=== PATIENT | male | born 1950 | race Caucasian/White ===

== ENCOUNTER 2018-10-01 11:21 | Emergency (ER) | payer MEDICARE, SELFPAY ==
[2018-10-01 11:34] VITALS: BP 154/85; PULSE 64; RESP 16; TEMP 36.7; O2SAT 97
[2018-10-01 12:18] VITALS: RESP 16
--- NOTE | 2018-10-01 12:27 | ED.GENADUL_ITS ---
Discharge Plan Disposition Patient Disposition: HOME Discharge Details Chief Complaint: Vascular Clinical Impression: Laceration of left leg, Bleeding from varicose vein Primary Care Provider: Edward Fernandes ED Provider: Isaias Jones Home Meds and New Rx's Prescriptions: No Action insulin detemir U-100 [Levemir U-100 Insulin] 100 UNIT/1 ML solution SQ BID RF: 0 sulfamethoxazole-trimethoprim [Bactrim DS] 1 EACH tablet 1 ea PO BID Qty: 14 RF: 0 albuterol sulfate [Proventil HFA] 6.7 GM HFA aerosol inhaler 2 puff Inhalation .Q6HRS RF: 0 albuterol sulfate 2.5 MG/3 ML solution for nebulization 3 ml Inhalation QID PRN PRN (Reason: Dyspnea) Qty: 30 RF: 0 Discharge Instructions Instructions: Care For Your Stitches (ED), Skin Adhesive Care (ED) Additional Instructions: Protect your lower legs. Return to ER or see your doctor for suture removal in 14 days. Return to the ER sooner for any worsening or new concerning symptoms. Referrals: Edward Fernandes [Primary Care Provider] - Medical Decision Making 67-year-old male here with venous bleed from shallow ulcer in area of varicose veins left lin. Attempted to control bleeding with of 4 mL local injection of lidocaine with epinephrine. This was unsuccessful. Figure 8 suture was placed with 4-0 nylon. Hemostasis was achieved. Topical skin adhesive was applied over the area. Usual and customary discharge instructions were provided. HPI General Mode of arrival: ambulatory . Date/Time Provider Initiated Documentation: 10/01/18 11:59 . Limitations to Documentation: no limitations . Information obtained by: patient and family . HPI Narrative: 67-year-old male here with bleeding from wound left lower extremity. Patient notes that he picked the scab off of his left lin last night and wound started bleeding. Bleeding was heavy at times and squirted across room. Bleeding was controlled with dressing. When he took the dressing down this morning bleeding was again noted. Bleeding was severe. No associated redness or signs of infection. Related Data Home Medications Medication Instructions Recorded Confirmed sulfamethoxazole-trimethoprim 1 ea PO BID #14 tablet 01/25/16 01/27/16 [Bactrim Ds Tablet] albuterol sulfate 3 ml INHALATION QID PRN PRN #30 06/13/16 vial albuterol sulfate [Proventil Hfa] 2 puff INHALATION .Q6HRS 01/27/16 01/27/16 insulin detemir U-100 [Levemir SQ BID 02/09/18 Vial] Previous Rx's Medication Instructions Recorded sulfamethoxazole-trimethoprim 1 ea PO BID #14 tablet 01/25/16 [Bactrim Ds Tablet] albuterol sulfate 3 ml INHALATION QID PRN PRN #30 01/27/16 vial Allergies Allergy/AdvReac Type Severity Reaction Status Date / Time No Known Allergies Allergy Unverified 02/09/18 10:25 General Stated Complaint: Vascular ANNAMARIA: 3 Review of Systems Integumentary/Breasts Reports as per HPI [facility] Medical History Insulin dependent diabetes mellitus (Chronic) Social History Smoking and Tabacco status: Former Tobacco Use Exam Skin Trauma: laceration (Left medial lin with 0.5 cm shallow ulceration with steady venous bleed) Extrem Other: Varicose veins noted distal left lower extremity Course Vital Signs Temperature 36.7 C 10/01/18 11:34 Pulse 64 10/01/18 11:34 Respiratory Rate 16 10/01/18 11:34 Blood Pressure 154/85 H 10/01/18 11:34 Pulse Oximetry 97 10/01/18 11:34 Temperature 36.7 C 10/01/18 11:34 Temperature Source Temporal Artery Scan 10/01/18 11:34 Pulse 64 10/01/18 11:34 Respiratory Rate 16 10/01/18 12:18 Respiratory Effort Non-Labored 10/01/18 12:18 Respiratory Depth Normal 10/01/18 12:18 Respiratory Pattern Normal 10/01/18 12:18 Blood Pressure 154/85 H 10/01/18 11:34 Blood Pressure Position Sitting 10/01/18 11:34 Pulse Oximetry 97 10/01/18 11:34 Oxygen Delivery Method Room Air 10/01/18 11:34 Oxygen Flow Rate 0 10/01/18 11:34 Pain Level 0 10/01/18 11:34 Procedures Laceration Laceration 1: Site: lower extremity Side (If applicable): left Size (cm): 0.5 Description: other (avulsion) Depth: simple, single layer Local Anesthetic: Lidocaine 1% and with Epi Size (cm): 4-0 Number of sutures: 1 Technique: other (figure 8)
[2018-10-01 16:01] VITALS: BP 154/85; PULSE 64; RESP 16; TEMP 36.7; O2SAT 97
== END 2018-10-01 12:44 | disposition home or self-care (01) ==
PROVIDERS: Emergency Provider Student in an Organized Health Care Education/Training Program; PCP Specialist/Technologist Athletic Trainer
DX: S81.812A Laceration without foreign body, left lower leg, initial encounter (principal); I83.028 Varicose veins of left lower extremity with ulcer other part of lower leg; W26.8XXA Contact with other sharp object(s), not elsewhere classified, initial encounter; E11.9 Type 2 diabetes mellitus without complications; Z79.4 Long term (current) use of insulin
CPT/HCPCS: 12001

== ENCOUNTER 2018-10-17 07:47 | Emergency (ER) | payer MEDICARE, SELFPAY ==
--- NOTE | 2018-10-17 08:06 | ED.GENADUL_ITS ---
Discharge Plan Disposition Patient Disposition: HOME Condition: Improving Discharge Details Clinical Impression: Visit for suture removal Primary Care Provider: Edward Fernandes ED Provider: Jose Vasquez Home Meds and New Rx's Prescriptions: Continued Levemir U-100 Insulin 100 UNIT/1 ML solution SQ BID RF: 0 Proventil HFA 6.7 GM HFA aerosol inhaler 2 puff Inhalation .Q6HRS RF: 0 albuterol sulfate 2.5 MG/3 ML solution for nebulization 3 ml Inhalation QID PRN PRN (Reason: Dyspnea) Qty: 30 RF: 0 Discharge Instructions Additional Instructions: Continue your regular medications. Soap and water cleanse, pat dry once daily and continue redressing for another 3-5 days time. Return for any concerns Medical Decision Making 68-year-old male presents for uneventful suture removal from left anterior tibia. I personally remove the suture. The wound was dressed. It is well- appearing he is stable for discharge HPI General Mode of arrival: ambulatory . Date/Time Provider Initiated Documentation: 10/17/18 07:59 . Limitations to Documentation: no limitations . Information obtained by: patient . History of Present Illness 68 year old M presents to the emergency department with the chief complaint of Presents for uneventful suture removal. No complaint, Related Data Home Medications Medication Instructions Recorded Confirmed Proventil HFA 2 puff INHALATION .Q6HRS 01/27/16 10/01/18 albuterol sulfate 3 ml INHALATION QID PRN PRN #30 01/27/16 10/01/18 vial Levemir U-100 Insulin SQ BID 02/09/18 Previous Rx's Medication Instructions Recorded albuterol sulfate 3 ml INHALATION QID PRN PRN #30 01/27/16 vial Allergies Allergy/AdvReac Type Severity Reaction Status Date / Time No Known Allergies Allergy Unverified 02/09/18 10:25 General ANNAMARIA: 3 PFSH Medical History Insulin dependent diabetes mellitus (Chronic) Social History Smoking and Tabacco status: Former Tobacco Use Exam Narrative Exam Narrative: GEN: awake, alert, oriented 3. Pleasant, well groomed, interactive. HEAD: Normocephalic, atraumatic EXT: Full ROM, left pretibial area with healing punctate wound. Suture in place, no surrounding erythema or Neuro: Grossly normal neurologic exam, conversant, interactive. Psych: Speech fluent, thoughts congruent, affect normal
[2018-10-17 08:10] VITALS: BP 147/72; PULSE 66; RESP 16; TEMP 36.8; O2SAT 95
== END 2018-10-17 08:11 | disposition home or self-care (01) ==
LOC: ER 08:12
PROVIDERS: Emergency Provider Emergency Medicine; PCP Specialist/Technologist Athletic Trainer
DX: S81.812D Laceration without foreign body, left lower leg, subsequent encounter (principal); X58.XXXD Exposure to other specified factors, subsequent encounter; Z48.02 Encounter for removal of sutures

== ENCOUNTER 2019-02-14 01:14 | Outpatient (CLI) | payer MEDICARE, SELFPAY ==
--- NOTE | 2019-02-14 13:42 | DI.US_ITS ---
SYMPTOMS/DIAGNOSIS: DIZZINESS, R42 CAROTID ULTRASOUND: No significant plaque is visible. The velocity measurements obtained are within the normal range. The vertebral arteries show antegrade flow. The left lobe of the thyroid is incidentally noted to be heterogeneous. IMPRESSION: No significant plaque or significant interval carotid artery stenosis. Heterogeneous left lobe of the thyroid. A thyroid ultrasound could be performed if clinically indicated.
== END 2019-02-14 01:34 ==
PROVIDERS: PCP Specialist/Technologist Athletic Trainer; Visit Provider Specialist/Technologist Athletic Trainer
DX: R42 Dizziness and giddiness (principal); E07.89 Other specified disorders of thyroid
CPT/HCPCS: 93880

== ENCOUNTER 2019-02-24 01:15 | Outpatient (CLI) | payer MEDICARE, SELFPAY ==
--- NOTE | 2019-02-24 13:21 | DI.US_ITS ---
SYMPTOMS/DIAGNOSIS: HETEROGENEOUS LEFT LOBE OF THYROID ON CAROTID US, F/U ABNORMAL FINDINGS, R93.89 THYROID ULTRASOUND: Routine examination was performed. Comparison ultrasound of the carotids is 02/14/19. The right lobe measures 4.8 x 2.1 x 2.6 cm, the left lobe measures 5 x 2.1 x 2.0 cm. The isthmus is enlarged measuring 0.9 cm. The thyroid gland is heterogeneous with multiple nodules seen bilaterally. The nodules range from completely cystic to completely solid. The largest nodule on the right is seen superiorly, is solid with peripheral vascularity. It measures 1.7 x 1 x 1.4 cm. The largest nodule on the left measures 2 x 1.7 x 1.4 cm. It is located in the superior pole. It is solid and shows some internal vascularity. There is a 2.1 x 1.4 x 1.9 cm solid vascular nodule in the isthmus. No echogenic shadowing foci are seen in the any of the nodules. None of the nodules show a definite malignant appearance sonographically. If further characterization is warranted, a thyroid uptake and scan may be considered. IMPRESSION: Multinodular thyroid gland. Please see the above discussion for complete details.
== END 2019-02-24 01:35 ==
PROVIDERS: PCP Specialist/Technologist Athletic Trainer; Visit Provider Specialist/Technologist Athletic Trainer
DX: E04.2 Nontoxic multinodular goiter (principal); R93.89 Abnormal findings on diagnostic imaging of other specified body structures
CPT/HCPCS: 76536

== ENCOUNTER 2019-02-24 16:18 | Outpatient (REF) | payer MEDICARE, SELFPAY ==
[2019-02-24 19:59] LABS: TSH (W/Ref FT4) 0.82 uIU/mL (0.358-3.74)
== END 2019-02-24 16:38 ==
LOC: NCHCN 16:18
PROVIDERS: PCP Specialist/Technologist Athletic Trainer; Visit Provider Specialist/Technologist Athletic Trainer
DX: R93.89 Abnormal findings on diagnostic imaging of other specified body structures (principal)
CPT/HCPCS: 84443

== ENCOUNTER 2020-01-23 15:22 | Outpatient (REF) | payer MEDICARE, SELFPAY ==
[2020-01-24 09:56] LABS: ALT 45 U/L (16-63); AST 27 U/L (15-37); Albumin 3.9 g/dL (3.4-5.0); Alkaline Phosphatase 78 U/L (46-116); Anion Gap 9.1 mmol/L (3-11); BUN 25 mg/dL (7-18); Bilirubin, Total 0.9 mg/dL (0.2-1.0); CO2 26.9 mmol/L (21.0-32.0); CREATININE 1.46 mg/dL (0.70-1.30); Calcium 9.6 mg/dL (8.5-10.1); Chloride 107 mmol/L (98-107); Glucose 136 mg/dL (74-106); NT-proBNP 57 pg/mL (<300); Potassium 4.8 mmol/L (3.5-5.1); Sodium 143 mmol/L (136-145); Total Protein 8.1 g/dL (6.4-8.2)
[2020-01-25 10:35] LABS: COVID-19 RT-PCR UVMMC Result Negative (Negative)
== END 2020-01-23 15:42 ==
LOC: NCHCN 15:22
PROVIDERS: PCP Specialist/Technologist Athletic Trainer; Visit Provider Nurse Practitioner Family
DX: R05 Cough (principal); R06.02 Shortness of breath
CPT/HCPCS: 80053; U0003; 83880

== ENCOUNTER 2020-01-23 16:39 | Outpatient (CLI) | payer MEDICARE, SELFPAY ==
--- NOTE | 2020-01-23 | DI.RAD_ITS ---
EXAM: XR CHEST 2V PA LATERAL CLINICAL HISTORY: COUGH, R05 TECHNIQUE: 2D digital imaging was performed. COMPARISON: CR CHEST 2 VIEWS PA,LAT from 01/27/2016 FINDINGS: MEDIASTINUM: Normal. HEART: Normal. PULMONARY VASCULATURE: Normal. LUNGS: There is an opacity/infiltrate in the right upper lobe. The infiltrate appears somewhat lucen t centrally. PLEURAL SPACE: No pleural effusion or pneumothorax. BONE:Normal. OTHER FINDINGS:Normal. IMPRESSION: Opacity in the right upper lobe with central lucency. This may represent an abscess or empyema assoc iated with pneumonia. Necrotic mass/neoplasm should also be considered. A CT scan of the chest with contrast is recommended for further evaluation. DATA REPOSITORY: RADIATION DOSE DELIVERED:
== END 2020-01-23 16:59 ==
PROVIDERS: PCP Specialist/Technologist Athletic Trainer; Visit Provider Nurse Practitioner Family
DX: R05 Cough (principal); J98.4 Other disorders of lung
CPT/HCPCS: 71046

== ENCOUNTER 2020-01-24 12:35 | Outpatient (CLI) | payer MEDICARE, SELFPAY ==
--- NOTE | 2020-01-24 14:20 | DI.CT_ITS ---
EXAM: CT CHEST WO CLINICAL HISTORY: COUGH, R05, F/U CXR 01/22. TECHNIQUE: Imaging protocol: Axial computed tomography images were obtained and coronal and sagittal reformatted images were created and reviewed. COMPARISON: CR XR CHEST 2V PA LATERAL from 01/23/2020 FINDINGS: Tracheobronchial tree: Patent where visualized. Mediastinum and Gabi: No dominant adenopathy or fluid collection. Pulmonary parenchyma: There is a 4.1 x 5.1 x 3.5 cm opacity in the right upper lobe. There are no ai r bronchograms seen centrally. Findings are most suspicious for primary pulmonary neoplasm. There a re surrounding ground-glass opacities present. Superiorly there does appear to be an infiltrate with air bronchograms and associated lucencies. These lucencies may represent focal bronchiectasis, bull a/blebs or less likely an area of necrosis. There are ground-glass opacities also noted in the right middle lobe. Centrilobular emphysematous changes are present in the lungs. No other pulmonary nodu les are identified. Pleura: No effusion or pneumothorax. Heart: The heart is not dilated. Moderate coronary artery calcification. No significant pericardial effusion Aorta: Thoracic aorta non-dilated. Atherosclerosis. Upper abdomen: Cholelithiasis. 4.2 x 2.5 cm hypodense lesion in the anterior segment of the right l obe of the liver. Peripherally calcified hypodense lesion anterior to the left kidney incompletely i nawaf on this examination. Lymph nodes: Within normal limits. Bones:Degenerative changes in the thoracic spine and shoulders.Sclerotic foci seen in the thoracic sp ine and ribs that suspicious for metastatic disease. IMPRESSION: 1. 4.1 x 5.1 x 3.5 cm mass in the right upper lobe suspicious for primary pulmonary neoplasm. 2. Sclerotic foci seen in the thoracic spine and rib suspicious for metastatic disease. 3. 4.2 x 2.5 cm hypodense lesion seen in the right lobe of the liver. Lack of contrast limits evalua tion. CT scan of the abdomen is recommended for further evaluation. Metastatic focus should be cons idered. 4. Ground-glass opacities and infiltrates in the right upper lobe and right middle lobe. A superimpo sed infectious or inflammatory process should be considered. RADIATION DOSE DELIVERED: 837.64mGy.cm Total DLP 837.64mGy.cm Total DLP DATA REPOSITORY: All CT scans at this facility are submitted to the National Radiology Data Registry (NRDR) Dose Index Registry (DIR) with the [employer] (ACR). RADIATION OPTIMIZATION: All CT scans at this facility use at least one of these dose optimization te chniques: automated exposure control; mA and/or kV adjustment per patient size (includes targeted exa ms where dose is matched to clinical indication); or iterative reconstruction.
== END 2020-01-24 12:55 ==
PROVIDERS: PCP Specialist/Technologist Athletic Trainer; Visit Provider Nurse Practitioner Family
DX: R05 Cough (principal); J98.4 Other disorders of lung; R91.8 Other nonspecific abnormal finding of lung field; J43.8 Other emphysema; K76.89 Other specified diseases of liver; R93.7 Abnormal findings on diagnostic imaging of other parts of musculoskeletal system
CPT/HCPCS: 71250

== ENCOUNTER 2020-02-14 13:10 | Outpatient (REF) | payer MEDICARE, SELFPAY ==
[2020-02-14 20:04] LABS: HCT 44.8 % (40.0-50.0); HGB 14.3 g/dL (13.5-17.5); Mean Corp. HGB Concentration 31.9 g/dL (32.0-36.0); Mean Corpuscular Hemoglobin 27.2 pg (27.0-33.0); Mean Corpuscular Volume 85.3 fL (80-95); Mean Platelet Volume 12.1 fL (8.0-11.0); Platelet Count 269 x1000/uL (130-400); RBC 5.25 m/cumm (4.50-6.00); RBC Distribution Width 15.1 % (11.8-14.1); White Blood Cell Count 9.31 k/cumm (4.4-10.8)
[2020-02-14 20:22] LABS: Anion Gap 11.4 mmol/L (3-11); BUN 22 mg/dL (7-18); CO2 23.6 mmol/L (21.0-32.0); CREATININE 1.43 mg/dL (0.70-1.30); Calcium 9.1 mg/dL (8.5-10.1); Chloride 105 mmol/L (98-107); Estimated GFR 48.75 (mL/min/1.73m2); Glucose 159 mg/dL (74-106); Potassium 4.6 mmol/L (3.5-5.1); Sodium 140 mmol/L (136-145)
== END 2020-02-14 13:30 ==
LOC: NCHCN 13:10
PROVIDERS: PCP Specialist/Technologist Athletic Trainer; Visit Provider Nurse Practitioner Family
DX: E11.9 Type 2 diabetes mellitus without complications (principal); I10 Essential (primary) hypertension; Z79.4 Long term (current) use of insulin
CPT/HCPCS: 80048; 85027

== ENCOUNTER 2020-02-21 01:56 | Outpatient (CLI) | payer MEDICARE, SELFPAY ==
[2020-02-21 13:08] LABS: Anion Gap 11.2 mmol/L (3-11); BUN 24 mg/dL (7-18); CO2 20.8 mmol/L (21.0-32.0); Calcium 9.3 mg/dL (8.5-10.1); Chloride 105 mmol/L (98-107); Estimated GFR 54.42 (mL/min/1.73m2); Glucose 138 mg/dL (74-106); Potassium 4.8 mmol/L (3.5-5.1); Sodium 137 mmol/L (136-145)
--- NOTE | 2020-02-21 14:03 | DI.CT_ITS ---
EXAM: CT CHEST/ABD/PEL W CLINICAL HISTORY: LUNG MASS, R91.8, PNEUMONIA, RUL LUNG ABSCESS VS MASS. TECHNIQUE: Imaging Protocol: Axial computed tomography images with coronal and sagittal reformatted images were created and reviewed CONTRAST MATERIAL: Intravenous: Omnipaque 350 Contrast volume:100 ml Oral: yes COMPARISON: CR CHEST 2 VIEWS PA,LAT from 01/27/2016 CR XR CHEST 2V PA LATERAL from 01/23/[address] CHEST WO from 01/24/2020 FINDINGS: CHEST: Tracheobronchial tree: Patent where visualized. Mediastinum and Gabi: No dominant adenopathy or fluid collection. Pulmonary parenchyma: There has been no change in size or appearance of the previously noted mass in the right upper lobe. There has also been no significant change in the increased densities in the oskar ng seen both posteriorly and anteriorly to the mass. There are mild underlying emphysematous changes . No new pulmonary nodules or infiltrates are seen. Pleura: No effusion or pneumothorax. Lymph nodes: Within normal limits. Aorta: The ascending aorta measures 4.7 cm just above the root. Mild atherosclerotic changes. The pulmonary arteries are well opacified with IV contrast and no emboli are seen. Heart: Not enlarged. Bones: Rounded sclerotic lesion in the T5 vertebral body. Degenerative disc changes in the spine. ABDOMEN: Liver: Moderately enlarged. Moderate hepatic steatosis. There is a circumscribed low-density lesion in the liver, which does not show enhancement following contrast. There is no biliary dilatation. Gallbladder shows layering small stones or sludge. No biliary dilatation. Pancreas: Normal density, no abnormal calcifications or inflammatory process. Spleen: Normal. Kidneys: Normal size, contour and axis. No radiodense stones or obstructive uropathy. No masses seen. Multiple bilateral cysts. Adrenal glands: No masses seen. Aorta and iliac arteries: Abdominal portion non-dilated. Dwsfzstg-[id number]-[id number] calcification. Lymph nodes: Within normal limits. PELVIS: Bladder: Symmetric distention, no gross wall thickening. Bowel: No obstruction or bowel wall thickening. Normal appendix. Diverticulosis of the lower desce nding and sigmoid colon. Peritoneal cavity: No ascites, collection or mesenteric inflammatory response. Bones: Degenerative changes in the spine. There are several sclerotic lesions seen in the pelvis. F indings could represent bone islands; however, metastatic lesions are not excluded. Reproductive organs: Enlarged prostate. IMPRESSION: 1. No change in size or appearance of right upper lobe mass. The findings are highly suspicious for neoplasm. 2. Circumscribed low-density liver lesion does not show enhancement, consistent with a cyst. 3. Several sclerotic bony lesions, in the pelvis as well as in the spine. Findings could represent bone islands versus metastatic lesions. RADIATION DOSE DELIVERED: Total DLP DATA REPOSITORY: All CT scans at this facility are submitted to the National Radiology Data Registry (NRDR) Dose Index Registry (DIR) with the [employer] (ACR). RADIATION OPTIMIZATION: All CT scans at this facility use at least one of these dose optimization te chniques: automated exposure control; mA and/or kV adjustment per patient size (includes targeted exa ms where dose is matched to clinical indication); or iterative reconstruction.
[2020-02-21] MEDS: Omnipaque 350 MG/ML 100 ML BTL IV (14:15)
[2020-02-21] MEDS: Breeza Beverage 473 ML BTL PO (14:16)
[2020-02-21] MEDS: Omnipaque 350 MG/ML 50 ML BTL PO (14:16)
== END 2020-02-21 02:16 ==
PROVIDERS: PCP Specialist/Technologist Athletic Trainer; Visit Provider Internal Medicine Critical Care Medicine
DX: R91.8 Other nonspecific abnormal finding of lung field (principal); J98.4 Other disorders of lung; J43.8 Other emphysema; R16.0 Hepatomegaly, not elsewhere classified; K76.89 Other specified diseases of liver; N40.0 Benign prostatic hyperplasia without lower urinary tract symptoms
CPT/HCPCS: 74177; 80048; 71260; J3490; Q9967

== ENCOUNTER 2020-03-20 10:11 | Outpatient (REF) | payer MEDICARE, SELFPAY ==
[2020-03-20 21:47] LABS: Hemoglobin A1C 6.6 % (3.8-5.6)
[2020-03-20 21:56] LABS: ALT 36 U/L (16-63); AST 21 U/L (15-37); Albumin 3.6 g/dL (3.4-5.0); Alkaline Phosphatase 75 U/L (46-116); Anion Gap 9.6 mmol/L (3-11); BUN 22 mg/dL (7-18); Bilirubin, Total 0.9 mg/dL (0.2-1.0); CO2 24.4 mmol/L (21.0-32.0); CREATININE 1.45 mg/dL (0.70-1.30); Calcium 9.1 mg/dL (8.5-10.1); Calculated LDL 115 mg/dL (<100); Chloride 106 mmol/L (98-107); Cholesterol 165 mg/dL (<200); Estimated GFR 47.98 (mL/min/1.73m2); Glucose 133 mg/dL (74-106); HDL Cholesterol 33 mg/dL (40-60); Potassium 4.6 mmol/L (3.5-5.1); Sodium 140 mmol/L (136-145); Total Protein 7.5 g/dL (6.4-8.2); Triglyceride 88 mg/dL (<150)
== END 2020-03-20 10:31 ==
LOC: NCHCN 10:11
PROVIDERS: PCP Specialist/Technologist Athletic Trainer; Visit Provider Nurse Practitioner Family
DX: E11.9 Type 2 diabetes mellitus without complications (principal); E78.5 Hyperlipidemia, unspecified; I10 Essential (primary) hypertension
CPT/HCPCS: 80053; 80061; 83036

== ENCOUNTER 2020-05-13 15:15 | Outpatient (CLI) | payer MEDICARE, SELFPAY ==
[2020-05-13 15:42] LABS: Abs Immature Grans 0.04 10^3/uL (0.0-0.06); Absolute Basophil Count 0.04 10^3/uL (0.0-0.2); Absolute Eosinophil Count 0.28 10^3/uL (0.0-0.7); Absolute Lymphocyte Count 1.48 10^3/uL (1.2-3.4); Absolute Monocyte Count 0.68 10^3/uL (0.1-0.8); Absolute Neutrophil Count 5.93 10^3/uL (1.2-6.7); Basophils % 0.5; Eosinophils % 3.3; HCT 47.6 % (40.0-50.0); HGB 14.7 g/dL (13.5-17.5); Immature Grans % 0.5; Lymphocytes % 17.5; MCH 26.6 pg (27.0-33.0); MCHC 30.9 % (32.0-36.0); MCV 86.2 fL (80-95); MPV 11.2 fL (8.0-11.0); Neutrophils % 70.2; Nucleated RBC 0 %; Platelet Count 230 10^3/uL (130-400); RBC 5.52 10^6/uL (4.36-5.78); RDW-SD 43.8 fL; WBC 8.45 10^3/uL (4.4-10.8)
[2020-05-13 16:01] LABS: ALT 44 U/L (16-63); AST 28 U/L (15-37); Albumin 3.5 g/dL (3.4-5.0); Alkaline Phosphatase 78 U/L (46-116); Anion Gap 11.9 mmol/L (3-11); BUN 20 mg/dL (7-18); Bilirubin, Total 0.9 mg/dL (0.2-1.0); CO2 23.1 mmol/L (21.0-32.0); CREATININE 1.31 mg/dL (0.70-1.30); Calcium 9.4 mg/dL (8.5-10.1); Chloride 103 mmol/L (98-107); Estimated GFR 53.94 (mL/min/1.73m2); Glucose 123 mg/dL (74-106); Magnesium 2.1 mg/dL (1.8-2.4); Potassium 4.6 mmol/L (3.5-5.1); Sodium 138 mmol/L (136-145); Total Protein 8.1 g/dL (6.4-8.2)
== END 2020-05-13 15:35 ==
PROVIDERS: PCP Nurse Practitioner Family; Visit Provider Nurse Practitioner Family
DX: C34.11 Malignant neoplasm of upper lobe, right bronchus or lung (principal)
CPT/HCPCS: 36415; 80053; 83735; 85025

== ENCOUNTER 2020-05-16 02:42 | Outpatient (CLI) | payer MEDICARE, SELFPAY ==
--- NOTE | 2020-05-16 | DI.US_ITS ---
EXAM: US THYROID CLINICAL HISTORY: MULTI NODULAR GOITER,R04.2. TECHNIQUE: Ultrasound thyroid performed using standard protocol. COMPARISON: US US thyroid from 02/24/[address] CHEST WO from 01/24/2020 FINDINGS: ISTHMUS: 11 mm RIGHT LOBE: Size: 5.4 x 1.9 x 2.3 cm Echogenicity: Heterogeneous. Vascularity: Normal. Nodules: Multiple LEFT LOBE: Size: 6.0 x 2.2 x 2.8 cm Echogenicity: Heterogeneous Vascularity: Normal. Nodules: Multiple OTHER FINDINGS: None. IMPRESSION: Findings consistent with a multi nodular goiter. No suspicious nodules are identified. TI-RADS archie gory 2.. DATA REPOSITORY:
== END 2020-05-16 03:02 ==
PROVIDERS: PCP Nurse Practitioner Family; Visit Provider Otolaryngology
DX: E04.2 Nontoxic multinodular goiter (principal)
CPT/HCPCS: 76536

== ENCOUNTER 2020-06-03 03:44 | Outpatient (CLI) | payer MEDICARE, SELFPAY ==
[2020-06-03 15:35] LABS: Abs Immature Grans 0.01 10^3/uL (0.0-0.06); Absolute Basophil Count 0.01 10^3/uL (0.0-0.2); Absolute Eosinophil Count 0.15 10^3/uL (0.0-0.7); Absolute Lymphocyte Count 0.84 10^3/uL (1.2-3.4); Absolute Neutrophil Count 3.77 10^3/uL (1.2-6.7); Basophils % 0.2; Eosinophils % 2.8; HCT 43.2 % (40.0-50.0); HGB 13.7 g/dL (13.5-17.5); Immature Grans % 0.2; Lymphocytes % 15.9; MCHC 31.7 % (32.0-36.0); MPV 10.8 fL (8.0-11.0); Monocytes % 9.5; Neutrophils % 71.4; Nucleated RBC 0 %; Platelet Count 146 10^3/uL (130-400); RBC 5.08 10^6/uL (4.36-5.78); RDW 13.7 % (11.8-14.1); RDW-SD 41.5 fL; WBC 5.28 10^3/uL (4.4-10.8)
[2020-06-03 15:55] LABS: ALT 26 U/L (16-63); AST 16 U/L (15-37); Albumin 3.3 g/dL (3.4-5.0); Alkaline Phosphatase 85 U/L (46-116); Anion Gap 6.5 mmol/L (3-11); BUN 21 mg/dL (7-18); Bilirubin, Total 0.7 mg/dL (0.2-1.0); CO2 24.5 mmol/L (21.0-32.0); CREATININE 1.37 mg/dL (0.70-1.30); Calcium 9.2 mg/dL (8.5-10.1); Chloride 103 mmol/L (98-107); Estimated GFR 51.22 (mL/min/1.73m2); Glucose 121 mg/dL (74-106); Magnesium 1.8 mg/dL (1.8-2.4); Potassium 5.1 mmol/L (3.5-5.1); Sodium 134 mmol/L (136-145); Total Protein 7.6 g/dL (6.4-8.2)
== END 2020-06-03 04:04 ==
PROVIDERS: PCP Nurse Practitioner Family; Visit Provider Internal Medicine Medical Oncology
DX: C34.11 Malignant neoplasm of upper lobe, right bronchus or lung (principal); R05 Cough
CPT/HCPCS: 36415; 80053; 83735; 83880; 85025

== ENCOUNTER 2020-06-10 02:05 | Outpatient (CLI) | payer MEDICARE, SELFPAY ==
[2020-06-10 08:22] LABS: Abs Immature Grans 0.08 10^3/uL (0.0-0.06); Absolute Basophil Count 0.03 10^3/uL (0.0-0.2); Absolute Eosinophil Count 0.22 10^3/uL (0.0-0.7); Absolute Lymphocyte Count 1.35 10^3/uL (1.2-3.4); Absolute Monocyte Count 0.82 10^3/uL (0.1-0.8); Absolute Neutrophil Count 4.05 10^3/uL (1.2-6.7); Basophils % 0.5; Eosinophils % 3.4; HCT 42.3 % (40.0-50.0); HGB 13.6 g/dL (13.5-17.5); Immature Grans % 1.2; Lymphocytes % 20.6; MCH 27.7 pg (27.0-33.0); MCHC 32.2 % (32.0-36.0); MCV 86.2 fL (80-95); MPV 10.3 fL (8.0-11.0); Monocytes % 12.5; Neutrophils % 61.8; Nucleated RBC 0 %; Platelet Count 312 10^3/uL (130-400); RBC 4.91 10^6/uL (4.36-5.78); RDW 14.7 % (11.8-14.1); RDW-SD 44.3 fL; WBC 6.55 10^3/uL (4.4-10.8)
[2020-06-10 08:35] LABS: ALT 26 U/L (16-63); AST 18 U/L (15-37); Albumin 3.2 g/dL (3.4-5.0); Alkaline Phosphatase 87 U/L (46-116); Anion Gap 4.2 mmol/L (3-11); BUN 18 mg/dL (7-18); Bilirubin, Total 0.5 mg/dL (0.2-1.0); CO2 28.8 mmol/L (21.0-32.0); CREATININE 1.73 mg/dL (0.70-1.30); Chloride 103 mmol/L (98-107); Estimated GFR 39.13 (mL/min/1.73m2); Glucose 160 mg/dL (74-106); Magnesium 1.6 mg/dL (1.8-2.4); Potassium 4.3 mmol/L (3.5-5.1); Sodium 136 mmol/L (136-145); Total Protein 7.5 g/dL (6.4-8.2)
== END 2020-06-10 02:25 ==
PROVIDERS: PCP Nurse Practitioner Family; Visit Provider Internal Medicine Medical Oncology
DX: C34.11 Malignant neoplasm of upper lobe, right bronchus or lung (principal)
CPT/HCPCS: 36415; 80053; 83735; 85025

== ENCOUNTER 2020-06-18 03:47 | Outpatient (CLI) | payer MEDICARE, SELFPAY ==
[2020-06-18 10:26] LABS: Abs Immature Grans 0.06 10^3/uL (0.0-0.06); Absolute Basophil Count 0.02 10^3/uL (0.0-0.2); Absolute Eosinophil Count 0.08 10^3/uL (0.0-0.7); Absolute Lymphocyte Count 1.24 10^3/uL (1.2-3.4); Absolute Monocyte Count 0.23 10^3/uL (0.1-0.8); Absolute Neutrophil Count 3.65 10^3/uL (1.2-6.7); Basophils % 0.4; Eosinophils % 1.5; HCT 41.4 % (40.0-50.0); HGB 13.2 g/dL (13.5-17.5); Immature Grans % 1.1; Lymphocytes % 23.5; MCH 27.2 pg (27.0-33.0); MCHC 31.9 % (32.0-36.0); MCV 85.4 fL (80-95); Monocytes % 4.4; Neutrophils % 69.1; Nucleated RBC 0 %; Platelet Count 155 10^3/uL (130-400); RBC 4.85 10^6/uL (4.36-5.78); RDW 14.6 % (11.8-14.1); RDW-SD 44.4 fL; WBC 5.28 10^3/uL (4.4-10.8)
[2020-06-18 10:43] LABS: ALT 33 U/L (16-63); AST 17 U/L (15-37); Albumin 3.5 g/dL (3.4-5.0); Alkaline Phosphatase 83 U/L (46-116); Anion Gap 6.5 mmol/L (3-11); BUN 28 mg/dL (7-18); Bilirubin, Total 0.9 mg/dL (0.2-1.0); CO2 25.5 mmol/L (21.0-32.0); CREATININE 1.51 mg/dL (0.70-1.30); Calcium 9.2 mg/dL (8.5-10.1); Chloride 104 mmol/L (98-107); Estimated GFR 45.78 (mL/min/1.73m2); Glucose 134 mg/dL (74-106); Magnesium 1.5 mg/dL (1.8-2.4); Potassium 4.9 mmol/L (3.5-5.1); Sodium 136 mmol/L (136-145); Total Protein 7.7 g/dL (6.4-8.2)
== END 2020-06-18 04:07 ==
PROVIDERS: PCP Nurse Practitioner Family; Visit Provider Internal Medicine Medical Oncology
DX: C34.11 Malignant neoplasm of upper lobe, right bronchus or lung (principal)
CPT/HCPCS: 36415; 80053; 83735; 85025

== ENCOUNTER 2020-07-01 02:48 | Outpatient (CLI) | payer MEDICARE, SELFPAY ==
[2020-07-01 08:48] LABS: Abs Immature Grans 0.04 10^3/uL (0.0-0.06); Absolute Basophil Count 0.03 10^3/uL (0.0-0.2); Absolute Eosinophil Count 0.26 10^3/uL (0.0-0.7); Absolute Lymphocyte Count 1.33 10^3/uL (1.2-3.4); Absolute Monocyte Count 0.74 10^3/uL (0.1-0.8); Absolute Neutrophil Count 3.12 10^3/uL (1.2-6.7); Basophils % 0.5; Eosinophils % 4.7; HCT 38.6 % (40.0-50.0); HGB 12.5 g/dL (13.5-17.5); Immature Grans % 0.7; Lymphocytes % 24.1; MCH 27.8 pg (27.0-33.0); MCHC 32.4 % (32.0-36.0); MCV 85.8 fL (80-95); MPV 10.1 fL (8.0-11.0); Monocytes % 13.4; Neutrophils % 56.6; Nucleated RBC 0 %; Platelet Count 217 10^3/uL (130-400); RDW 15.9 % (11.8-14.1); RDW-SD 46.6 fL; WBC 5.52 10^3/uL (4.4-10.8)
[2020-07-01 10:14] LABS: ALT 29 U/L (16-63); AST 20 U/L (15-37); Albumin 3.6 g/dL (3.4-5.0); Alkaline Phosphatase 85 U/L (46-116); Anion Gap 10.5 mmol/L (3-11); BUN 21 mg/dL (7-18); Bilirubin, Total 0.7 mg/dL (0.2-1.0); CO2 23.5 mmol/L (21.0-32.0); CREATININE 1.64 mg/dL (0.70-1.30); Calcium 9.2 mg/dL (8.5-10.1); Chloride 103 mmol/L (98-107); Estimated GFR 41.62 (mL/min/1.73m2); Glucose 163 mg/dL (74-106); Magnesium 1.9 mg/dL (1.8-2.4); Potassium 4.4 mmol/L (3.5-5.1); Sodium 137 mmol/L (136-145); Total Protein 7.8 g/dL (6.4-8.2)
== END 2020-07-01 03:08 ==
PROVIDERS: PCP Nurse Practitioner Family; Visit Provider Internal Medicine Medical Oncology
DX: C34.11 Malignant neoplasm of upper lobe, right bronchus or lung (principal)
CPT/HCPCS: 36415; 80053; 83735; 85025

== ENCOUNTER 2020-07-22 03:01 | Outpatient (CLI) | payer MEDICARE, SELFPAY ==
[2020-07-22 09:05] LABS: Abs Immature Grans 0.07 10^3/uL (0.0-0.06); Absolute Basophil Count 0.02 10^3/uL (0.0-0.2); Absolute Eosinophil Count 0.13 10^3/uL (0.0-0.7); Absolute Lymphocyte Count 0.89 10^3/uL (1.2-3.4); Absolute Monocyte Count 0.88 10^3/uL (0.1-0.8); Absolute Neutrophil Count 4.93 10^3/uL (1.2-6.7); Basophils % 0.3; Eosinophils % 1.9; HCT 34.5 % (40.0-50.0); HGB 11.5 g/dL (13.5-17.5); Lymphocytes % 12.9; MCH 29.2 pg (27.0-33.0); MCHC 33.3 % (32.0-36.0); MCV 87.6 fL (80-95); MPV 9.9 fL (8.0-11.0); Monocytes % 12.7; Neutrophils % 71.2; Nucleated RBC 0 %; Platelet Count 240 10^3/uL (130-400); RBC 3.94 10^6/uL (4.36-5.78); RDW 17.7 % (11.8-14.1); RDW-SD 54.2 fL; WBC 6.92 10^3/uL (4.4-10.8)
[2020-07-22 09:17] LABS: ALT 32 U/L (16-63); AST 18 U/L (15-37); Albumin 3.4 g/dL (3.4-5.0); Alkaline Phosphatase 86 U/L (46-116); Anion Gap 8.5 mmol/L (3-11); BUN 24 mg/dL (7-18); CO2 25.5 mmol/L (21.0-32.0); CREATININE 1.82 mg/dL (0.70-1.30); Calcium 8.9 mg/dL (8.5-10.1); Chloride 101 mmol/L (98-107); Estimated GFR 36.91 (mL/min/1.73m2); Glucose 173 mg/dL (74-106); Magnesium 1.7 mg/dL (1.8-2.4); Potassium 4.2 mmol/L (3.5-5.1); Sodium 135 mmol/L (136-145)
== END 2020-07-22 03:21 ==
PROVIDERS: PCP Nurse Practitioner Family; Visit Provider Internal Medicine Medical Oncology
DX: C34.11 Malignant neoplasm of upper lobe, right bronchus or lung (principal); I82.411 Acute embolism and thrombosis of right femoral vein; I82.431 Acute embolism and thrombosis of right popliteal vein
CPT/HCPCS: 36415; 80053; 83735; 85025; 93971

== ENCOUNTER 2020-07-22 14:24 | Outpatient (CLI) | payer MEDICARE, SELFPAY ==
--- NOTE | 2020-07-22 | DI.US_ITS ---
EXAM: US LOWER EXTREMITY VENOUS RT CLINICAL HISTORY: EDEMA LOWER EXTREMITY R60.0, LUNG CANCER C34.11, RT LEG SWELLING AND CALF. TECHNIQUE: Right lower extremity venous ultrasound performed using grayscale, color-flow, and spectr al Doppler analysis. COMPARISON: No exams were available for comparison FINDINGS: This is a very abnormal-positive study. There is extensive DVT/intraluminal clot load. The right co mmon femoral vein and tire femoral vein down to and including the popliteal vein or thrombose as is t he entire pot posterior tibial vein in the calf down to the level of the ankle. The ipsilateral grea ter saphenous vein appears patent. IMPRESSION: Extensive DVT in the right lower extremity as described above. Physician's office was notified. DATA REPOSITORY:
== END 2020-07-22 14:44 ==
PROVIDERS: PCP Nurse Practitioner Family; Visit Provider Internal Medicine Medical Oncology
DX: I82.411 Acute embolism and thrombosis of right femoral vein (principal); I82.431 Acute embolism and thrombosis of right popliteal vein; C34.11 Malignant neoplasm of upper lobe, right bronchus or lung
CPT/HCPCS: 93971

== ENCOUNTER 2020-10-31 13:16 | Outpatient (REF) | payer MEDICARE, SELFPAY ==
[2020-10-31 13:54] LABS: Abs Immature Grans 0.06 10^3/uL (0.0-0.06); Absolute Basophil Count 0.05 10^3/uL (0.0-0.2); Absolute Lymphocyte Count 1.44 10^3/uL (1.2-3.4); Absolute Monocyte Count 0.92 10^3/uL (0.1-0.8); Basophils % 0.5; Eosinophils % 2.2; HCT 33.4 % (40.0-50.0); HGB 10.5 g/dL (13.5-17.5); Immature Grans % 0.6; Lymphocytes % 15.5; MCH 27.4 pg (27.0-33.0); MCHC 31.4 % (32.0-36.0); MCV 87.2 fL (80-95); MPV 10.5 fL (8.0-11.0); Monocytes % 9.9; Neutrophils % 71.3; Nucleated RBC 0 %; Platelet Count 372 10^3/uL (130-400); RBC 3.83 10^6/uL (4.36-5.78); RDW 14.4 % (11.8-14.1); RDW-SD 45.9 fL; WBC 9.27 10^3/uL (4.4-10.8)
[2020-10-31 14:15] LABS: ALT 40 U/L (16-63); AST 21 U/L (15-37); Albumin 2.7 g/dL (3.4-5.0); Alkaline Phosphatase 144 U/L (46-116); Anion Gap 7.5 mmol/L (3-11); BUN 23 mg/dL (7-18); Bilirubin, Total 0.5 mg/dL (0.2-1.0); CO2 29.5 mmol/L (21.0-32.0); CREATININE 1.6 mg/dL (0.70-1.30); Calcium 9.4 mg/dL (8.5-10.1); Chloride 98 mmol/L (98-107); Glucose 140 mg/dL (74-106); Magnesium 1.8 mg/dL (1.8-2.4); Potassium 4.2 mmol/L (3.5-5.1); Sodium 135 mmol/L (136-145); Total Protein 7.6 g/dL (6.4-8.2)
== END 2020-10-31 13:17 | disposition home or self-care (01) ==
LOC: LBN 13:16
PROVIDERS: PCP Nurse Practitioner Family; Visit Provider Nurse Practitioner Family
DX: C34.11 Malignant neoplasm of upper lobe, right bronchus or lung (principal)
CPT/HCPCS: 80053; 83735; 85025

== ENCOUNTER 2020-11-29 16:07 | Outpatient (REF) | payer MEDICARE, SELFPAY ==
[2020-11-29 17:30] LABS: ALT 21 U/L (16-63); AST 16 U/L (15-37); Alkaline Phosphatase 87 U/L (46-116); Anion Gap 7.7 mmol/L (3-11); BUN 18 mg/dL (7-18); Bilirubin, Total 0.9 mg/dL (0.2-1.0); CO2 28.3 mmol/L (21.0-32.0); CREATININE 1.3 mg/dL (0.70-1.30); Calcium 9.3 mg/dL (8.5-10.1); Chloride 102 mmol/L (98-107); Estimated GFR 54.26 (mL/min/1.73m2); Glucose 116 mg/dL (74-106); Potassium 4.5 mmol/L (3.5-5.1); Sodium 138 mmol/L (136-145); Total Protein 7.1 g/dL (6.4-8.2)
[2020-11-29 17:34] LABS: Abs Immature Grans 0.04 10^3/uL (0.0-0.06); Absolute Basophil Count 0.03 10^3/uL (0.0-0.2); Absolute Eosinophil Count 0.13 10^3/uL (0.0-0.7); Absolute Lymphocyte Count 1.09 10^3/uL (1.2-3.4); Absolute Monocyte Count 0.87 10^3/uL (0.1-0.8); Absolute Neutrophil Count 7.85 10^3/uL (1.2-6.7); Basophils % 0.3; Eosinophils % 1.3; HCT 34.1 % (40.0-50.0); HGB 10.7 g/dL (13.5-17.5); Immature Grans % 0.4; Lymphocytes % 10.9; MCH 26.3 pg (27.0-33.0); MCHC 31.4 % (32.0-36.0); MCV 83.8 fL (80-95); MPV 10.9 fL (8.0-11.0); Monocytes % 8.7; Neutrophils % 78.4; Nucleated RBC 0 %; Platelet Count 242 10^3/uL (130-400); RBC 4.07 10^6/uL (4.36-5.78); RDW 15.4 % (11.8-14.1); RDW-SD 46.9 fL; WBC 10.01 10^3/uL (4.4-10.8)
== END 2020-11-29 16:08 | disposition home or self-care (01) ==
LOC: NCHCN 16:07
PROVIDERS: PCP Nurse Practitioner Family; Visit Provider Nurse Practitioner Family
DX: C34.11 Malignant neoplasm of upper lobe, right bronchus or lung (principal)
CPT/HCPCS: 80053; 85025

== ENCOUNTER 2020-12-16 13:00 | Inpatient (IN) | payer MEDICARE, SELFPAY ==
[2020-12-16] VITALS (42 sets, daily range): BP systolic 95–157; BP diastolic 49–102; PULSE 57–278; RESP 17–28; TEMP 36.4–36.5; O2SAT 93–98
--- NOTE | 2020-12-16 12:45 | RT.EKG_ITS ---
APPROVED REPORT Exam: Resting ECG Patient Location: E HR:86 bpm ECG Measurements Heart Rate 86 AXIS ID 187 P 34 QRSd 92 QRS 44 QT 346 T 5 QTc 414 Conclusion Sinus rhythm...normal P axis, V-rate 60- 99 Supraventricular bigeminy...bigeminy string>4 w/ SV complexes no STEMI, non-diagnostic EKG I have reviewed and interpreted ECG and agree with software generated interpretation.
[2020-12-16] MEDS: Normal Saline 500 ML IV (13:15)
[2020-12-16 13:23] LABS: Lactate 1.7 mmol/L (0.6-1.4)
[2020-12-16 13:24] LABS: Abs Immature Grans 0.08 10^3/uL (0.0-0.06); Absolute Basophil Count 0.03 10^3/uL (0.0-0.2); Absolute Eosinophil Count 0.12 10^3/uL (0.0-0.7); Absolute Monocyte Count 1.21 10^3/uL (0.1-0.8); Absolute Neutrophil Count 11.42 10^3/uL (1.2-6.7); Basophils % 0.2; Eosinophils % 0.9; HCT 36.1 % (40.0-50.0); HGB 11.5 g/dL (13.5-17.5); Immature Grans % 0.6; Lymphocytes % 6.7; MCH 26.1 pg (27.0-33.0); MCHC 31.9 % (32.0-36.0); MPV 10.6 fL (8.0-11.0); Monocytes % 8.8; Neutrophils % 82.8; Nucleated RBC 0 %; Platelet Count 313 10^3/uL (130-400); RDW-SD 48.3 fL; WBC 13.79 10^3/uL (4.4-10.8)
[2020-12-16 13:27] LABS: Absolute Lymphocyte Count 0.92 10^3/uL (1.2-3.4)
[2020-12-16 13:41] LABS: ALT 17 U/L (16-63); AST 10 U/L (15-37); Alkaline Phosphatase 75 U/L (46-116); Anion Gap 10.7 mmol/L (3-11); BUN 21 mg/dL (7-18); Bilirubin, Total 1.1 mg/dL (0.2-1.0); CO2 25.3 mmol/L (21.0-32.0); CREATININE 1.5 mg/dL (0.70-1.30); Calcium 9.7 mg/dL (8.5-10.1); Chloride 102 mmol/L (98-107); Glucose 144 mg/dL (74-106); Potassium 4.6 mmol/L (3.5-5.1); Sodium 138 mmol/L (136-145); Total Protein 7.8 g/dL (6.4-8.2)
[2020-12-16 13:43] LABS: Creatine Kinase 24 U/L (39-308)
[2020-12-16 13:45] LABS: Troponin I < 0.05 ng/mL (<0.06)
--- NOTE | 2020-12-16 13:45 | DI.CT_ITS ---
Exam(s) CT CHEST/ABD/PEL W EXAM: CT CHEST/ABD/PEL W CLINICAL HISTORY: right chest and abd pain, hx of aneurysm, cancer, TECHNIQUE: Imaging Protocol: Axial computed tomography images with coronal and sagittal reformatted images were created and reviewed CONTRAST MATERIAL: Intravenous: Omnipaque 350 Contrast volume:125 mL Oral: No COMPARISON: CT CT CHEST/ABD/PEL W from 02/21/2020 FINDINGS: CHEST: Tracheobronchial tree: Patent where visualized. Pulmonary parenchyma: The patient is status post right upper lobectomy. There is a moderate right pl eural effusion. There is a very small subjacent infiltrate. This may represent atelectasis or pneum onia. No architectural distortion. Visualized thyroid gland: There is a 1 cm hypodense nodule in the left lobe of the thyroid gland. No associated suspicious findings. Mediastinum and Gabi: No dominant adenopathy or fluid collection. Pleura: There is a moderate-sized right pleural effusion. No left pleural effusion is present. Heart: The heart is not dilated. Mild coronary artery calcification. No pericardial effusion. Aorta: Thoracic aorta non-dilated. Atherosclerosis. Lymph nodes: Within normal limits. Soft tissues: Unremarkable. Bones:Postsurgical changes in the right hemithorax. Otherwise stable osseous findings. ABDOMEN: Liver: Normal density. There is a stable cyst in the right lobe. No suspicious hepatic mass. Portal, Superior Mesenteric, and Splenic Veins: Unremarkable. Gallbladder and Biliary Tract: Cholelithiasis. No biliary ductal dilatation. Pancreas: Normal density, no abnormal calcifications or inflammatory process. Spleen: Normal. Adrenals: No masses seen. Kidneys: Normal size, contour and axis. No radiodense stones or obstructive uropathy. Stable bilatera l renal cysts. Abdominal Aorta: Abdominal portion non-dilated. Atherosclerosis. IVC: IVC filter in place. Bowel: No obstruction or bowel wall thickening. Appendix is unremarkable. Sigmoid diverticulosis, but no diverticulitis. Peritoneal Cavity: No ascites, collection or mesenteric inflammatory response. No free air. Lymph Nodes: Within normal limits. Bones: Unchanged sclerotic lesions are seen in the bones. There is a stable lucency in the right sabra ac bone. Soft Tissues: Unremarkable. PELVIS: Bladder: There is a Ledbetter catheter in the urinary bladder. There is thickening of the wall of the ur inary bladder which appears asymmetric and thicker on the right. The prostate gland appears enlarged . The bladder wall thickening may be secondary to chronic bladder outlet obstruction but a bladder m ass, or an infectious or inflammatory process should be considered. Reproductive Organs: Please see above. Lymph Nodes: Within normal limits. Bones: Within normal limits. IMPRESSION: 1. Thickening of the wall of the urinary bladder. While this may be due to underdistention there is some asymmetric right bladder wall thickening. An inflammatory infectious process or bladder mass ca nnot be excluded. Chronic bladder outlet obstruction secondary to an enlarged prostate gland should also be considered. 2. Prostatic gland enlargement. 3. Stable findings of hepatic and renal cysts, sigmoid diverticulosis and cholelithiasis. 4. Stable osseous lesions. 5. Interval right upper lobectomy. 6. Moderate right pleural effusion 7. 1 cm left lobe thyroid nodule. No follow-up is recommended. 8. Results of this exam have been verbally communicated with provider. In patients >18 years with an incidental thyroid nodule (ITN) detected on CT,MRI, or extrathyroidal u ltrasound, no further evaluation is recommended if the nodule is 1 cm or less and has no suspicious i maging features. In patients<35 years with an (ITN) detected on CT, MRI, or extrathyroidal ultrasound, further evaluat ion with dedicated thyroid ultrasound is recommended if the nodule > 1 cm and has no suspicious imaga ing features, and if the patient has normal life expectancy. In patients >35 years with an ITN detected on CT MRI or extrathyroidal ultrasound, further evaluation with dedicated thyroid ultrasound is recommended if the nodule is > 1.5 cm and has no suspicious emma ging features, and if the patient has normal life expenctancy. (JULY, 2009 and ACR, 2014) RADIATION DOSE DELIVERED: 3,113.15mGy.cm Total DLP DATA REPOSITORY: All CT scans at this facility are submitted to the National Radiology Data Registry (NRDR) Dose Index Registry (DIR) with the [employer] (ACR). RADIATION OPTIMIZATION: All CT scans at this facility use at least one of these dose optimization te chniques: automated exposure control; mA and/or kV adjustment per patient size (includes targeted exa ms where dose is matched to clinical indication); or iterative reconstruction.
[2020-12-16 14:23] LABS: Bilirubin Small (Negative); Blood Small (Negative); Clarity Cloudy (Clear); Glucose Negative (Negative); Ketones Negative (Negative); Leukocyte Esterase Trace (Negative); Nitrite Negative (Negative); Specific Gravity >= 1.030 (1.005-1.025); Urobilinogen 0.2 EU/dL (Up TO 0.2); pH 5.5 (5-8)
[2020-12-16 14:34] LABS: Epithelial Cells Few HPF (Negative)
[2020-12-16 14:35] LABS: Bacteria Moderate HPF (Negative); C & S Indicated? Yes; Casts Negative LPF (Negative); Crystals Negative HPF (Negative); Mucus Negative (Negative)
[2020-12-16 14:53] LABS: Acetaminophen < 2 ug/mL (10-30)
[2020-12-16] MEDS: Omnipaque 350 MG/ML 100 ML BTL IV (15:06)
[2020-12-16] MEDS: Omnipaque 350 MG/ML 50 ML BTL IV (15:10)
[2020-12-16] MEDS: Normal Saline - Diluent 50 ML VIAL IV (15:20)
[2020-12-16] MEDS: cefTRIAXone 2 GM/50 ML BAG IVPB (15:29)
--- NOTE | 2020-12-16 16:05 | ED.GENADUL_ITS ---
Discharge Plan Discharge Details Chief Complaint: Abd Prob Admit Date/Time: 12/16/20 16:58 Admit Provider: Segundo Lyman Attending Provider: Segundo Lyman Primary Care Provider: Lucinda Mcgowan ED Provider: Jahaira Bedolla Discharge Data Discharge Date/Time-TO BE ENTERED AT DEPARTURE: 12/16/20 19:35 Medical Decision Making Patient is alert and oriented to his baseline per Blood pressure was initially soft, patient given IV fluid resuscitation and normotensive on reevaluation Given leukocytosis, suspected urinary tract infection secondary to Ledbetter catheter replacement, will start patient empirically on ceftriaxone and replaced Ledbetter catheter Hemodynamically stable at this time CT shows evidence of pleural effusion in a patient with prior lobectomy although patient is mildly tachypneic, he is in no respiratory distress and not hypoxic There is no evidence of an obvious secondary infection At this time patient and are agreeable to admission, Dr. Lyman to admit patient CT chest, abdomen and pelvis ordered given patient's prior medical history Not currently on chemotherapy Differential Diagnosis Differential Diagnosis: Septicemia, urinary tract infection, pneumonia, effusion Medical Records Medical records reviewed: Yes I reviewed the patient's medical records. Lab Data Lab results reviewed: Yes I reviewed the patient's lab results. HPI General Mode of arrival: ambulatory . Date/Time Provider Initiated Documentation: 12/16/20 13:11 . Limitations to Documentation: no limitations . Information obtained by: patient . HPI Narrative: This 70-year-old gentleman with history of diabetes and lung cancer presents with report of some mild confusion and increased weakness today. Patient was noted to have an elevated temp at home, will states 100. Patient has not had cough or shortness of breath reportedly. He denies any exposure to sick contacts. He reportedly have Ledbetter catheter change several days ago and they are concerned about a possible urinary tract infection. Patient complains of generalized myalgias. There have been no falls or injuries. Patient did have a lobectomy back in August and subsequently developed pneumonia. He had a chest tube placed secondary to effusion and has been doing relatively well. Denies any recent antibiotics. Last chemotherapy was reportedly in July. Related Data Home Medications Medication Instructions Recorded Confirmed albuterol sulfate 3 ml INHALATION QID PRN PRN #30 01/27/16 12/16/20 vial albuterol sulfate [Proventil HFA] 2 puff INHALATION .Q6HRS 01/27/16 12/16/20 Levemir U-100 Insulin 25 unit SQ BID 02/09/18 12/16/20 apixaban [Eliquis] 5 mg PO BID 12/16/20 12/16/20 tamsulosin 0.4 mg PO DAILY 12/16/20 12/16/20 Previous Rx's Medication Instructions Recorded albuterol sulfate 3 ml INHALATION QID PRN PRN #30 01/27/16 vial Allergies Allergy/AdvReac Type Severity Reaction Status Date / Time tramadol AdvReac Other (See Unverified 12/17/20 17:45 Comment) General Stated Complaint: Abd Prob ANNAMARIA: 3 Review of Systems All systems reviewed & are unremarkable except as noted in HPI and below PFSH Medical History (Updated 12/16/20 @ 19:11 by Mary Light NP) CKD (chronic kidney disease) DVT (deep venous thrombosis) S/p IVC filter Hx of traumatic brain injury Insulin dependent diabetes mellitus Lung cancer Multinodular thyroid UTI (urinary tract infection) Surgical History History of lobectomy of lung Social History Smoking/Tobacco Use Status: Former Tobacco Use Smoking risk assessment performed?: Yes Alcohol Intake: current Alcohol Intake frequency: holidays/special occasions only Drug use: Occasionally Substance use type: marijuana Details: pt states he has medical marijuana Do you feel safe at home: Yes Do you feel safe in your relationship?: Yes Exam Const General: cooperative and ill appearing Orientation: alert and oriented x3 HENMT Head: normal to inspection Other: Moist mucous membranes Eyes Pupils: PERRL Neck Other: No meningismus Chest Chest: normal inspection of the chest Resp Effort & Inspection: normal respiratory effort Auscultation: clear to auscultation bilaterally Cardio Rate: regular rate Rhythm: regular rhythm GI Other: Diffuse tenderness with palpation, no rebound or guarding Skin General skin exam: no rashes or lesions noted Neuro General: patient alert and CN's II-XI intact bilaterally Cranial Nerves: PERRL Extrem General: normal to inspection Other: 1+ edema to bilateral lower extremities, nontender Course Vital Signs Vital signs: Vital Signs Temperature 36.4 C L 12/16/20 12:50 Pulse 89 12/16/20 12:50 Respiratory Rate 20 12/16/20 12:50 Blood Pressure 95/61 L 12/16/20 12:50 Pulse Oximetry 95 12/16/20 12:50 Temperature 36.4 C L 12/16/20 12:50 Temperature Source Skin 12/16/20 12:50 Pulse 89 12/16/20 12:50 Respiratory Rate 20 12/16/20 12:50 Respiratory Effort Non-Labored 12/16/20 12:58 Blood Pressure 95/61 L 12/16/20 12:50 Blood Pressure Position Sitting 12/16/20 12:50 Pulse Oximetry 95 12/16/20 12:50 Oxygen Delivery Method Room Air 12/16/20 12:50 Oxygen Flow Rate 0 12/16/20 12:50 Pain Level 7 12/16/20 12:50 Lab/Test Results Lab/Test Results: 12/16/20 14:10 Urine - Reflex from Ua Urine Culture - Pending 12/16/20 13:12 Blood Blood Culture - Pending 12/16/20 13:12 Blood Blood Culture - Pending Laboratory Tests Range/Units 12/16/20 12/16/20 12/16/20 13:05 13:05 13:05 WBC (4.4-10.8) 10^3/uL 13.79 H RBC (4.36-5.78) 10^6/uL 4.40 Hgb (13.5-17.5) g/dL 11.5 L Hct (40.0-50.0) % 36.1 L MCV (80-95) fL 82.0 MCH (27.0-33.0) pg 26.1 L MCHC (32.0-36.0) % 31.9 L RDW (11.8-14.1) % 16.0 H Plt Count (130-400) 10^3/uL 313 MPV (8.0-11.0) fL 10.6 Immature Gran % 0.6 Neutrophils % 82.8 Lymphocytes % 6.7 Monocytes % 8.8 Eosinophils % 0.9 Basophils % 0.2 Nucleated RBC % % 0 Absolute Neutrophils (1.2-6.7) 10^3/uL 11.42 H Absolute Lymphocytes (1.2-3.4) 10^3/uL 0.92 L Absolute Monocytes (0.1-0.8) 10^3/uL 1.21 H Absolute Eosinophils (0.0-0.7) 10^3/uL 0.12 Absolute Basophils (0.0-0.2) 10^3/uL 0.03 VBG Lactate (0.6-1.4) mmol/L Sodium (136-145) mmol/L 138 Potassium (3.5-5.1) mmol/L 4.6 Chloride (98-107) mmol/L 102 Carbon Dioxide (21.0-32.0) mmol/L 25.3 Anion Gap (3-11) mmol/L 10.7 BUN (7-18) mg/dL 21 H Creatinine (0.70-1.30) mg/dL 1.5 H Estimated GFR/1.73 m2 (mL/min/1.73m2) 46.00 Glucose (74-106) mg/dL 144 H Calcium (8.5-10.1) mg/dL 9.7 Total Bilirubin (0.2-1.0) mg/dL 1.1 H AST (15-37) U/L 10 L ALT (16-63) U/L 17 Alkaline Phosphatase (46-116) U/L 75 Creatine Kinase (39-308) U/L 24 L Troponin I (<0.06) ng/mL < 0.05 Total Protein (6.4-8.2) g/dL 7.8 Albumin (3.4-5.0) g/dL 3.0 L Urine Color (Yellow) Urine Clarity (Clear) Urine pH (5-8) Ur Specific [place] (1.005-1.025) Urine Protein (Negative) mg/dL Urine Ketones (Negative) mg/dL Urine Blood (Negative) Urine Nitrite (Negative) Urine Bilirubin (Negative) Urine Urobilinogen (Up TO 0.2) EU/dL Ur Leukocyte Esterase (Negative) Urine RBC (0-2) HPF Urine WBC (0-5) HPF Ur Epithelial Cells (Negative) HPF Urine Crystals (Negative) HPF Urine Bacteria (Negative) HPF Urine Casts (Negative) LPF Urine Mucus (Negative) Ur Culture Indicated? Urine Glucose (Negative) mg/dL Acetaminophen (10-30) ug/mL Range/Units 12/16/20 12/16/20 12/16/20 13:05 13:05 14:10 WBC (4.4-10.8) 10^3/uL RBC (4.36-5.78) 10^6/uL Hgb (13.5-17.5) g/dL Hct (40.0-50.0) % MCV (80-95) fL MCH (27.0-33.0) pg MCHC (32.0-36.0) % RDW (11.8-14.1) % Plt Count (130-400) 10^3/uL MPV (8.0-11.0) fL Immature Gran % Neutrophils % Lymphocytes % Monocytes % Eosinophils % Basophils % Nucleated RBC % % Absolute Neutrophils (1.2-6.7) 10^3/uL Absolute Lymphocytes (1.2-3.4) 10^3/uL Absolute Monocytes (0.1-0.8) 10^3/uL Absolute Eosinophils (0.0-0.7) 10^3/uL Absolute Basophils (0.0-0.2) 10^3/uL VBG Lactate (0.6-1.4) mmol/L 1.7 H Sodium (136-145) mmol/L Potassium (3.5-5.1) mmol/L Chloride (98-107) mmol/L Carbon Dioxide (21.0-32.0) mmol/L Anion Gap (3-11) mmol/L BUN (7-18) mg/dL Creatinine (0.70-1.30) mg/dL Estimated GFR/1.73 m2 (mL/min/1.73m2) Glucose (74-106) mg/dL Calcium (8.5-10.1) mg/dL Total Bilirubin (0.2-1.0) mg/dL AST (15-37) U/L ALT (16-63) U/L Alkaline Phosphatase (46-116) U/L Creatine Kinase (39-308) U/L Troponin I (<0.06) ng/mL Total Protein (6.4-8.2) g/dL Albumin (3.4-5.0) g/dL Urine Color (Yellow) Yellow Urine Clarity (Clear) Cloudy Urine pH (5-8) 5.5 Ur Specific [place] (1.005-1.025) >= 1.030 H Urine Protein (Negative) mg/dL >=300 H Urine Ketones (Negative) mg/dL Negative Urine Blood (Negative) Small H Urine Nitrite (Negative) Negative Urine Bilirubin (Negative) Small H Urine Urobilinogen (Up TO 0.2) EU/dL 0.2 Ur Leukocyte Esterase (Negative) Trace H Urine RBC (0-2) HPF 5-10 H Urine WBC (0-5) HPF 10-20 H Ur Epithelial Cells (Negative) HPF Few Urine Crystals (Negative) HPF Negative Urine Bacteria (Negative) HPF Moderate Urine Casts (Negative) LPF Negative Urine Mucus (Negative) Negative Ur Culture Indicated? Yes Urine Glucose (Negative) mg/dL Negative Acetaminophen (10-30) ug/mL < 2 Critical Care Time Critical Care Time Critical Care Time: Yes Total Critical Care Time: 35 Attestation: IV antibiotics, IV fluid resuscitation, telemetry monitoring, admission
[2020-12-16] MEDS: Normal Saline 250 ML IV (16:54)
[2020-12-16] MEDS: ACETAMINOPHEN 1,000 MG/100 ML BTL 400 MG (17:05)
[2020-12-16 17:14] LABS: Troponin I < 0.05 ng/mL (<0.06)
--- NOTE | 2020-12-16 17:20 | HPE_ITS ---
Date of service: 12/16/20 Time of Service: 18:20 Assessment and Plan Assessment and plan (1) UTI (urinary tract infection): Status: Acute Assessment and plan: In the setting of chronic indwelling catheter. He is weak and has a poor appetite. With bladder wall thickening noted on CT, likely due to infection. Change saeed if not changed in the ED. IV ceftriaxone, culture pending. CBC in morning. Consult PT. (2) Lung cancer: Status: Chronic Assessment and plan: S/p Right upper lobectomy in 08/2020. No mets per . Moderate pleural effusion noted on imaging. Continue to monitor, likely due to recent surgery. (3) History of lobectomy of lung: Status: Acute Assessment and plan: As above. (4) Multinodular thyroid: Status: Acute Assessment and plan: Noted on CT. No follow up recommended. (5) Insulin dependent diabetes mellitus: Status: Chronic Assessment and plan: Monitor blood glucose at [facility]. Aspart per sliding scale. Continue home insulin regimen. (6) CKD (chronic kidney disease): Status: Chronic Assessment and plan: BUN and Cr elevated to 21 and 1.5, which is his baseline. Avoid nephrotoxic medications. Monitor renal function. (7) DVT (deep venous thrombosis): Status: Chronic Assessment and plan: RLE, continue Apixiban. (8) Hx of traumatic brain injury: Status: Acute Assessment and plan: Reported by , 50 years ago. He has short term memory problems. His is his health care agent. (9) Discharge planning issues: Status: Acute Assessment and plan: We briefly discussed CODE status. He remains a FULL code. They went back and forth on whether he would want to be intubated or not. He would benefit from further discussion of code status and goals of care. Palliative consult placed, will need to be present as his agent in the setting of memory problems. He does not sound like he is doing very well at home. He may need rehab prior to going home, vs home with services if he improves. History of Present Illness History of Present Illness Chief Complaint: weakness, UTI Narrative: Andres is a 70-year-old man with a past medical history significant for lung cancer, status post right upper lobectomy in August,, TBI 50 years ago with short term memory loss, CKD, [place] [facility]ix[place] and insulin dependent diabetes. He presented to the emergency department today with increased weakness and mild confusion. He was noted to be febrile at home. He has a chronic Saeed catheter which was changed last week. In the emergency d epartment, his labs were notable for elevated BUN of 21 and creatinine of 1.5, which is his baseline. He was also noted to have leukocytosis to 13.79 and stated UA was suspicious for UTI. He was started on IV ceftriaxone. He was referred for admission to the [facility] floor. Andres was seen in the ED with his , Sandie present. She gave the majority of his history. Sanide reports that Andres has been slow to recover since his right upper lobectomy 3 months ago. He has home health and has been working with PT but he has not been progressing very well. Today was different though, he has chronic RUE weakness, but it was worse today, he was unable to get out of bed and was not interested in eating or taking his medications. She also reports that he has had dizziness when going from a seated to standing position, he is taking flomax. He has had a saeed catheter since his lobectomy, he has had frequent UTIs since he has had the saeed. He endorses SOB with activity, he has had a cough, productive of clear sputum since his surgery. He also has had a LUE tremor since the surgery. He denies CP/pressure, palpitations. He moved his bowels 2 days ago. We discussed CODE status, Sandie reports that they have talked about this. They went back and forth on whether he would want intubation or not. He remains a FULL code but will benefit from ongoing conversation about this. Review of Systems All systems reviewed & are unremarkable except as noted in HPI and below [facility] Medical History (Updated 12/16/20 @ 19:11 by Mary Light NP) CKD (chronic kidney disease) DVT (deep venous thrombosis) S/p IVC filter Hx of traumatic brain injury Insulin dependent diabetes mellitus Lung cancer Multinodular thyroid UTI (urinary tract infection) Surgical History History of lobectomy of lung Social History Smoking/Tobacco Use Status: Former Tobacco Use Smoking risk assessment performed?: Yes Alcohol Intake: current Alcohol Intake frequency: holidays/special occasions only Drug use: Occasionally Substance use type: marijuana Details: pt states he has medical marijuana Do you feel safe at home: Yes Do you feel safe in your relationship?: Yes Meds Allergies and Home Medications Allergies Allergy/AdvReac Type Severity Reaction Status Date / Time No Known Allergies Allergy Unverified 12/16/20 12:57 Home Medications Medication Instructions Recorded Confirmed Type albuterol sulfate 3 ml INHALATION QID PRN PRN #30 01/27/16 12/16/20 Rx vial albuterol sulfate [Proventil HFA] 2 puff INHALATION .Q6HRS 01/27/16 12/16/20 History Levemir U-100 Insulin 25 unit SQ BID 02/09/18 12/16/20 History apixaban [Eliquis] 5 mg PO BID 12/16/20 12/16/20 History tamsulosin 0.4 mg PO DAILY 12/16/20 12/16/20 History Exam Narrative Exam Narrative: General: chronically ill appearing man, laying in bed with his eyes closed, he awakens to verbal stimuli, he answers questions appropriately. HEENT: normocephalic, atraumatic, pupils equal and round, makes eye contact, mucous membranes moist. Neck: supple. Cardiovascular: heart sounds regular, nontachycardic. Respiratory: respirations appear even and unlabored, lung sounds are clear on limited anterior and lateral exam. Well healed incision right/lateral chest. GI: round abdomen, soft, mildly tender on palpation, nondistended, +BS. Extremities: venous stasis changes to BLEs. +LUE tremor, unable to lift RUE off bed. Results Labs Result diagrams: 12/16/20 13:05 12/16/20 13:05 Labs: Laboratory Results - last 24 hr 12/16/20 12/16/20 12/16/20 13:05 13:05 13:05 WBC 13.79 H RBC 4.40 Hgb 11.5 L Hct 36.1 L MCV 82.0 MCH 26.1 L MCHC 31.9 L RDW 16.0 H Plt Count 313 MPV 10.6 Immature Gran % 0.6 Neutrophils % 82.8 Lymphocytes % 6.7 Monocytes % 8.8 Eosinophils % 0.9 Basophils % 0.2 Nucleated RBC % 0 Absolute Neutrophils 11.42 H Absolute Lymphocytes 0.92 L Absolute Monocytes 1.21 H Absolute Eosinophils 0.12 Absolute Basophils 0.03 VBG Lactate Sodium 138 Potassium 4.6 Chloride 102 Carbon Dioxide 25.3 Anion Gap 10.7 BUN 21 H Creatinine 1.5 H Estimated GFR/1.73 m2 46.00 Glucose 144 H Calcium 9.7 Total Bilirubin 1.1 H AST 10 L ALT 17 Alkaline Phosphatase 75 Creatine Kinase 24 L Troponin I < 0.05 Total Protein 7.8 Albumin 3.0 L Urine Color Urine Clarity Urine pH Ur Specific [place] Urine Protein Urine Ketones Urine Blood Urine Nitrite Urine Bilirubin Urine Urobilinogen Ur Leukocyte Esterase Urine RBC Urine WBC Ur Epithelial Cells Urine Crystals Urine Bacteria Urine Casts Urine Mucus Ur Culture Indicated? Urine Glucose Acetaminophen 12/16/20 12/16/20 12/16/20 13:05 13:05 14:10 WBC RBC Hgb Hct MCV MCH MCHC RDW Plt Count MPV Immature Gran % Neutrophils % Lymphocytes % Monocytes % Eosinophils % Basophils % Nucleated RBC % Absolute Neutrophils Absolute Lymphocytes Absolute Monocytes Absolute Eosinophils Absolute Basophils VBG Lactate 1.7 H Sodium Potassium Chloride Carbon Dioxide Anion Gap BUN Creatinine Estimated GFR/1.73 m2 Glucose Calcium Total Bilirubin AST ALT Alkaline Phosphatase Creatine Kinase Troponin I Total Protein Albumin Urine Color Yellow Urine Clarity Cloudy Urine pH 5.5 Ur Specific [place] >= 1.030 H Urine Protein >=300 H Urine Ketones Negative Urine Blood Small H Urine Nitrite Negative Urine Bilirubin Small H Urine Urobilinogen 0.2 Ur Leukocyte Esterase Trace H Urine RBC 5-10 H Urine WBC 10-20 H Ur Epithelial Cells Few Urine Crystals Negative Urine Bacteria Moderate Urine Casts Negative Urine Mucus Negative Ur Culture Indicated? Yes Urine Glucose Negative Acetaminophen < 2 12/16/20 16:45 WBC RBC Hgb Hct MCV MCH MCHC RDW Plt Count MPV Immature Gran % Neutrophils % Lymphocytes % Monocytes % Eosinophils % Basophils % Nucleated RBC % Absolute Neutrophils Absolute Lymphocytes Absolute Monocytes Absolute Eosinophils Absolute Basophils VBG Lactate Sodium Potassium Chloride Carbon Dioxide Anion Gap BUN Creatinine Estimated GFR/1.73 m2 Glucose Calcium Total Bilirubin AST ALT Alkaline Phosphatase Creatine Kinase Troponin I < 0.05 Total Protein Albumin Urine Color Urine Clarity Urine pH Ur Specific [place] Urine Protein Urine Ketones Urine Blood Urine Nitrite Urine Bilirubin Urine Urobilinogen Ur Leukocyte Esterase Urine RBC Urine WBC Ur Epithelial Cells Urine Crystals Urine Bacteria Urine Casts Urine Mucus Ur Culture Indicated? Urine Glucose Acetaminophen Last Vital Signs Temp 36.4 C L 12/16/20 12:50 Pulse 61 12/16/20 17:00 Resp 24 12/16/20 16:31 BP 113/56 L 12/16/20 17:00 Pulse Ox 95 12/16/20 17:01 COVID-19 Screening Have you, or household traveled for leisure in last 14 days?: No Had IN PERSON contact w/suspected or confirmed C-19 person: No
[2020-12-16 17:26] LABS: Source Nasal/Nares
[2020-12-16 18:10] LABS: COVID-19 PCR Negative (Negative)
--- NOTE | 2020-12-16 19:31 | NUR.NOTE ---
Nursing Note: Called lab to discuss COVID results as there is a 2nd COVID test input from provider who was told that a different one was needed. The first COVID result at 1720 was negative. Spoke with Keshawn in Lab who states that it is a negative result and an additional test is NOT needed.
[2020-12-16] MEDS: Apixaban 5 MG TAB PO (20:54)
[2020-12-16] MEDS: Normal Saline Flush 10 ML SYR (20:56)
[2020-12-16] MEDS: Normal Saline 1,000 ML 100 ML IV (20:56)
[2020-12-17 02:17] VITALS: BP 129/75; PULSE 70; RESP 24; TEMP 37.9; O2SAT 96
[2020-12-17 02:21] VITALS: TEMP 37
[2020-12-17] MEDS: Docusate Sodium 100 MG CAP PO ×2 (06:12→18:46)
[2020-12-17] MEDS: Acetaminophen 500 MG TAB 1000 MG PO ×2 (06:12→16:14)
[2020-12-17] MEDS: Normal Saline 1,000 ML 100 ML IV (06:42)
[2020-12-17 06:45] LABS: Abs Immature Grans 0.04 10^3/uL (0.0-0.06); Absolute Basophil Count 0.02 10^3/uL (0.0-0.2); Absolute Eosinophil Count 0.15 10^3/uL (0.0-0.7); Absolute Lymphocyte Count 1.23 10^3/uL (1.2-3.4); Absolute Monocyte Count 1.33 10^3/uL (0.1-0.8); Basophils % 0.2; Eosinophils % 1.6; HGB 11.7 g/dL (13.5-17.5); Immature Grans % 0.4; Lymphocytes % 13.5; MCH 25.3 pg (27.0-33.0); MCHC 30.8 % (32.0-36.0); MCV 82.1 fL (80-95); MPV 10.5 fL (8.0-11.0); Monocytes % 14.6; Neutrophils % 69.7; Nucleated RBC 0 %; Platelet Count 241 10^3/uL (130-400); RBC 4.63 10^6/uL (4.36-5.78); RDW 16.1 % (11.8-14.1); RDW-SD 48.4 fL
[2020-12-17 06:46] LABS: Absolute Neutrophil Count 6.34 10^3/uL (1.2-6.7)
[2020-12-17 06:58] LABS: Anion Gap 8.1 mmol/L (3-11); BUN 21 mg/dL (7-18); CO2 26.9 mmol/L (21.0-32.0); CREATININE 1.4 mg/dL (0.70-1.30); Calcium 8.9 mg/dL (8.5-10.1); Chloride 104 mmol/L (98-107); Estimated GFR 49.82 (mL/min/1.73m2); Glucose 94 mg/dL (74-106); Potassium 4.3 mmol/L (3.5-5.1); Sodium 139 mmol/L (136-145)
[2020-12-17 07:49] VITALS: BP 123/72; PULSE 60; RESP 17; TEMP 36.5; O2SAT 94
[2020-12-17] MEDS: Apixaban 5 MG TAB PO ×2 (08:09→20:26)
[2020-12-17] MEDS: cefTRIAXone 1 GM/50 ML BAG IVPB (08:09)
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
--- NOTE | 2020-12-17 11:00 | PT.INIE ---
Date of service: 12/17/20 Time of Service: 11:00 PT Notes Visit Reasons: Urinary tract infection Physical Therapy Inpatient Initial Evaluation Date: 12/17/2020 Referring Doctor: Mary Light NP PT Orders: PT CONSULT: Weakness r/t UTI, right UE weakness/pain r/t DJD, history TBI, recent RU lobectomy Precautions: Fall. Standard. Activity as tolerated. Non-ambulatory, bed-bound. Patient Profile/Admitting Diagnosis: Andres is a 70-year-old male with past medical history significant for traumatic brain injury and history of lung carcinoma status post right upper lobe lobectomy in August 2020 who presented to the ED on 12/16/2020 with mild confusion, increasing weakness, and fever. Patient is diagnosed with urinary tract infection. He is on anticouagulation due to previously diagnosed DVT of the right LE. PMHX: Medical History (Updated 12/16/20 @ 19:11 by Mary Light NP) CKD (chronic kidney disease) DVT (deep venous thrombosis) S/p IVC filter Hx of traumatic brain injury Insulin dependent diabetes mellitus Lung cancer Multinodular thyroid UTI (urinary tract infection) Surgical History History of lobectomy of lung Social History/Home Situation: Lives with in a private home with 3 steps to enter with one rail. Receives PT/OT/nursing 2x/week. 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 has been his main healthcare agent. Per Nurse Aggarwal, has told her that patient is bed-bound and rarely stands up. He uses the bed lui for all toileting tasks. Per patient, he has not walked for quite a while now and he uses a stand assist device to for bed mobility and transfer. Equipment Owned/DME: Hospital bed, overhead trapeze, transfer chair, stand assist device, bedpan Subjective: Patient reports pain in his right shoulder aggravated by movement. Indicates that he only stands up if he needs to with the extensive assistance of his or his caregivers. He states that he has not walked for quite a while and having had four courses of chemotherapy since summer of last year have not helped with his mobility. Reports that spasms started after his lobectomy and usually gets triggered by anxiety and discomfort. Shared his negative experience in previous rehabilitation facility and is a little anxious about initiating bed mobility tasks. Agreeable to waiting for 's arrival this afternoon before trying to get out of bed. Objective: General Observation: Quarter turned to the left while in bed. Ledbetter catheter in place. IV access in left UE. L UE intermittent transient spasms noted. Mental Status: Alert and oriented as to person and place. Able to pay attention, focus, and respond appropriately. Pain: 3/10 in right shoulder and right LE ROM: Right Upper Extremity: Able to reach opposite shoulder but unable to bring hand to mouth, to opposite hip and to opposite knee. Opening and closing of hand WFL. Left Upper Extremity: Able to reach opposite shoulder, to opposite hip and to opposite knee. Opening and closing of hand WFL. Right Lower Extremity: Hip flexion unable. Hip abduction unable. Hip ER/IR unable. Knee flexion unable. Knee extension 0 degrees. Ankle dorsiflexion/eversion to neutral only. Ankle plantarflexion/inversion WFL. Left Lower Extremity: Hip flexion to only about 30 degrees. Hip abduction to about 10 degrees. Hip ER/IR WFL. Knee flexion to only about 30 degrees. Knee extension 30 degrees to 0 degrees. Ankle dorsiflexion to neutral only. Ankle plantarflexion WFL. Strength: Right Upper Extremity: Shoulder flexors 5/5. Shoulder abductors 5/5. Shoulder ER 5/5/ Shoulder IR 5/5. Forearm pronators 5/5. Forearm supinators 5/5. Elbow flexors 5/5. Elbow extensors 5/5. Braille Transcriber strong. Left Upper Extremity: Shoulder flexors 5/5. Shoulder abductors 5/5. Shoulder ER 5/5/ Shoulder IR 5/5. Forearm pronators 5/5. Forearm supinators 5/5. Elbow flexors 5/5. Elbow extensors 5/5. Braille Transcriber strong. Right Lower Extremity: Hip flexors 5/5. Hip abductors 5/5. Hip external rotators 5/5. HIp internal rotators 5/5. Knee flexors 5/5. Knee extensors 5/5. Ankle dorsiflexors/evertors 5/5. Ankle plantarflexors/invertors 5/5. Left Lower Extremity: Hip flexors 5/5. Hip abductors 5/5. Hip external rotators 5/5. HIp internal rotators 5/5. Knee flexors 5/5. Knee extensors 5/5. Ankle dorsiflexors/evertors 5/5. Ankle plantarflexors/invertors 5/5. Bed Mobility/Transfers: Rolling moderate assist of 2 Supine to sit will assess with assist of 2 after interview with Sit to supine will assess with assist of 2 after interview with Sit to stand will assess with STEDY lift and assist of 2 after interview with Stand to sit will assess with STEDY lift and assist of 2 after interview with Bed to bedside commode will assess with STEDY lift and assist of 2 after interview with Bedside commode to bed will assess with STEDY lift and assist of 2 after interview with Bed to chair will assess with STEDY lift and assist of 2 after interview with Chair to bed will assess with STEDY lift and assist of 2 after interview with Gait: N/A. Non-ambulatory. Balance: Static Sitting: Unable Dynamic Sitting: Unable Static Standing: Unable Dynamic Standing: Unable Special Tests: Mobility Limitations Standardized Measure [facility] AM-PAC 6 clicks Basic Mobility Inpatient Short Form: Raw Score: 9 CMS Score: 77% deficit Informed Consent/Education: Patient instructed in purpose of PT consult and plan of care. Agreeable to proceed with established PT POC to achieve personal goals, amenable to waiting on arrival of Sandie around 1 pm this afternoon before attempting sitting and standing activities. Assessment: Anxious about getting out of bed. Agreed to wait for 's visit before initiating bed mobility and transfer tasks. Weakness resulting from new UTI, 4 rounds of chemotherapy, and lung surgery back in August. Will not have any goals for ambulation but will focus on bed mobility skill progression as well as on increasing standing balance/tolerance to increase safety of transfers. Will also provide recommendations regarding motorized wheelchair benefits. Patient presents with clinical signs and symptoms consistent with current/admitting diagnoses that have resulted to mobility limitations, gait instability, generalized weakness, and impairment of motor control as demonstrated by the following impairment level findings: 1. Decreased strength to B UE/LE major muscle groups R>>L 2. Limited sitting/standing balance and tolerance 3. Muscle spasms on L UE 4. Limitation of joint range of motion in B UE/LE 5. Pain in R shoulder Impairments are contributing to the following functional limitations: 1. Dependent bed mobility skills 2. Increased dependence with transfers 3. Non-ambulatory 4. Increase completion time for mobility ADL performance 5. Increased fall risk 6. Increased risk for skin breakdown 7. Inability to return to prior living environment at this time Patient is assessed as a 11930 high complexity based on the following: History: 70-year-old male with past medical history as indicated above Examination: Demonstrable impairment in strength, balance, and mobility level with underlying impairments and functional limitations as exhibited above as well as deficit score of 77% utilizing the [facility] Mobility Inpatient Short Form Presentation: Evolving Decision Makin high complexity Goals: Goals X1 week 1. Supine-Sit minimal assist using overhead trapeze 2. Sit-Supine minimal assist to B LE 3. Sit-Stand minimal assist and stand by assist of another using STEDY lift 4. Stand-Sit minimal assist and stand by assist of another using STEDY lift 5. Bed-Chair minimal assist and stand by assist of another using STEDY lift 6. Chair-Bed minimal assist and stand by assist of another using STEDY lift 7. Good static and dynamic sitting balance/tolerance Plan of Care/Treatment Plan: 1-2x/day, 7 days/week x 1 week. Plan of care has been reviewed with the HIMS CLERK providing the service under Physical Therapy direction. Initiate Physical Therapy intervention for strengthening, bed mobility, transfers, gait, stairs, balance training, and use of assistive device. DISCHARGE RECOMMENDATIONS: Consider use of motorized wheelchair for improved mobility at home. Resume HH PT/OT/nursing services as needed. May benefit from OT services to maximize functional use of B UE. TREATMENT CODE/TIME: 24363 x 30 minutes beginning at 11:00 AM. Thank you for the opportunity to participate in the care of this patient. Krysten Singh PT, DPT, CLT [facility] [place], [place]
--- NOTE | 2020-12-17 11:58 | W.PM.PROGNOT ---
Date of Service Date of service: 12/17/20 Time of Service: 11:58 Assessment and Plan Assessment and plan (1) UTI (urinary tract infection): Start date: 12/17/20 Start time: 12:01 Status: Acute Assessment and plan: In the setting of chronic indwelling catheter. Urine cx with enterococcus spec. awaiting sensitivities With bladder wall thickening noted on CT, likely due to infection. Foely exchanged. IV ceftriaxone day 2 WBC improved normal white count Consult PT. (2) Lung cancer: Start date: 12/17/20 Start time: 12:02 Status: Chronic Assessment and plan: S/p Right upper lobectomy in 08/2020. No mets per . Moderate pleural effusion noted on imaging. Continue to monitor, likely due to recent surgery. (3) History of lobectomy of lung: Start date: 12/17/20 Start time: 12:02 Status: Acute Assessment and plan: As above. (4) Multinodular thyroid: Start date: 12/17/20 Start time: 12:03 Status: Acute Assessment and plan: Noted on CT. No follow up recommended. (5) Insulin dependent diabetes mellitus: Start date: 12/17/20 Start time: 12:03 Status: Chronic Assessment and plan: Monitor blood glucose at [facility]. Aspart per sliding scale. Continue home insulin regimen. (6) CKD (chronic kidney disease): Start date: 12/17/20 Start time: 12:03 Status: Chronic Assessment and plan: BUN and Cr elevated to 21 and 1.4, which is his baseline. Avoid nephrotoxic medications. Monitor renal function. (7) Hx of traumatic brain injury: Start date: 12/17/20 Start time: 12:03 Status: Acute Assessment and plan: Reported by , 50 years ago. He has short term memory problems. His is his health care agent. (8) Discharge planning issues: Start date: 12/17/20 Start time: 12:04 Status: Acute Assessment and plan: He remains a FULL code. They went back and forth on whether he would want to be intubated or not. He would benefit from further discussion of code status and goals of care. Palliative consult placed, will need to be present as his agent in the setting of memory problems. He does not sound like he is doing very well at home. He may need rehab prior to going home, vs home with services if he improves. (9) DVT (deep venous thrombosis): Start date: 12/17/20 Start time: 12:04 Status: Chronic Assessment and plan: RLE, continue Apixiban. Subjective Subjective Patient reports: other Interval history since last seen: C/o arm and back pain, Chronic back. Since receiving pain medication he is feeling better. Culture growing Enter species. He denies CP, SOB, N/V/D. Exam Narrative Exam Narrative: General: chronically ill appearing man, laying in bed AAOX3. States had pain but improving, does not move stays still. HEENT: normocephalic, atraumatic, pupils equal and round, makes eye contact, mucous membranes moist. Neck: supple. Cardiovascular: heart sounds regular, nontachycardic. Respiratory: respirations appear even and unlabored, lung sounds are clear on limited anterior and lateral exam. Well healed incision right/lateral chest. GI: round abdomen, soft, mildly tender on palpation, nondistended, +BS. Extremities: venous stasis changes to BLEs. +LUE tremor, unable to lift RUE off bed. Objective Last Vital Signs Temp 36.5 C 12/17/20 07:49 Pulse 60 12/17/20 07:49 Resp 17 12/17/20 07:49 BP 123/72 12/17/20 07:49 Pulse Ox 94 12/17/20 07:49 Laboratory Results - last 24 hr 12/16/20 12/16/20 12/16/20 13:05 13:05 13:05 WBC 13.79 H RBC 4.40 Hgb 11.5 L Hct 36.1 L MCV 82.0 MCH 26.1 L MCHC 31.9 L RDW 16.0 H Plt Count 313 MPV 10.6 Immature Gran % 0.6 Neutrophils % 82.8 Lymphocytes % 6.7 Monocytes % 8.8 Eosinophils % 0.9 Basophils % 0.2 Nucleated RBC % 0 Absolute Neutrophils 11.42 H Absolute Lymphocytes 0.92 L Absolute Monocytes 1.21 H Absolute Eosinophils 0.12 Absolute Basophils 0.03 VBG Lactate Sodium 138 Potassium 4.6 Chloride 102 Carbon Dioxide 25.3 Anion Gap 10.7 BUN 21 H Creatinine 1.5 H Estimated GFR/1.73 m2 46.00 Glucose 144 H Calcium 9.7 Total Bilirubin 1.1 H AST 10 L ALT 17 Alkaline Phosphatase 75 Creatine Kinase 24 L Troponin I < 0.05 Total Protein 7.8 Albumin 3.0 L Urine Color Urine Clarity Urine pH Ur Specific [place] Urine Protein Urine Ketones Urine Blood Urine Nitrite Urine Bilirubin Urine Urobilinogen Ur Leukocyte Esterase Urine RBC Urine WBC Ur Epithelial Cells Urine Crystals Urine Bacteria Urine Casts Urine Mucus Ur Culture Indicated? Urine Glucose Acetaminophen COVID-19 Source SARS-CoV-2 (PCR) 12/16/20 12/16/20 12/16/20 13:05 13:05 14:10 WBC RBC Hgb Hct MCV MCH MCHC RDW Plt Count MPV Immature Gran % Neutrophils % Lymphocytes % Monocytes % Eosinophils % Basophils % Nucleated RBC % Absolute Neutrophils Absolute Lymphocytes Absolute Monocytes Absolute Eosinophils Absolute Basophils VBG Lactate 1.7 H Sodium Potassium Chloride Carbon Dioxide Anion Gap BUN Creatinine Estimated GFR/1.73 m2 Glucose Calcium Total Bilirubin AST ALT Alkaline Phosphatase Creatine Kinase Troponin I Total Protein Albumin Urine Color Yellow Urine Clarity Cloudy Urine pH 5.5 Ur Specific [place] >= 1.030 H Urine Protein >=300 H Urine Ketones Negative Urine Blood Small H Urine Nitrite Negative Urine Bilirubin Small H Urine Urobilinogen 0.2 Ur Leukocyte Esterase Trace H Urine RBC 5-10 H Urine WBC 10-20 H Ur Epithelial Cells Few Urine Crystals Negative Urine Bacteria Moderate Urine Casts Negative Urine Mucus Negative Ur Culture Indicated? Yes Urine Glucose Negative Acetaminophen < 2 COVID-19 Source SARS-CoV-2 (PCR) 12/16/20 12/16/20 12/16/20 16:45 17:20 19:24 WBC RBC Hgb Hct MCV MCH MCHC RDW Plt Count MPV Immature Gran % Neutrophils % Lymphocytes % Monocytes % Eosinophils % Basophils % Nucleated RBC % Absolute Neutrophils Absolute Lymphocytes Absolute Monocytes Absolute Eosinophils Absolute Basophils VBG Lactate Sodium Potassium Chloride Carbon Dioxide Anion Gap BUN Creatinine Estimated GFR/1.73 m2 Glucose Calcium Total Bilirubin AST ALT Alkaline Phosphatase Creatine Kinase Troponin I < 0.05 Total Protein Albumin Urine Color Urine Clarity Urine pH Ur Specific [place] Urine Protein Urine Ketones Urine Blood Urine Nitrite Urine Bilirubin Urine Urobilinogen Ur Leukocyte Esterase Urine RBC Urine WBC Ur Epithelial Cells Urine Crystals Urine Bacteria Urine Casts Urine Mucus Ur Culture Indicated? Urine Glucose Acetaminophen COVID-19 Source Nasal/nares Cancelled SARS-CoV-2 (PCR) Negative Cancelled 12/17/20 12/17/20 06:20 06:20 WBC 9.10 D RBC 4.63 Hgb 11.7 L Hct 38.0 L MCV 82.1 MCH 25.3 L MCHC 30.8 L RDW 16.1 H Plt Count 241 MPV 10.5 Immature Gran % 0.4 Neutrophils % 69.7 Lymphocytes % 13.5 Monocytes % 14.6 Eosinophils % 1.6 Basophils % 0.2 Nucleated RBC % 0 Absolute Neutrophils 6.34 Absolute Lymphocytes 1.23 Absolute Monocytes 1.33 H Absolute Eosinophils 0.15 Absolute Basophils 0.02 VBG Lactate Sodium 139 Potassium 4.3 Chloride 104 Carbon Dioxide 26.9 Anion Gap 8.1 BUN 21 H Creatinine 1.4 H Estimated GFR/1.73 m2 49.82 Glucose 94 D Calcium 8.9 Total Bilirubin AST ALT Alkaline Phosphatase Creatine Kinase Troponin I Total Protein Albumin Urine Color Urine Clarity Urine pH Ur Specific [place] Urine Protein Urine Ketones Urine Blood Urine Nitrite Urine Bilirubin Urine Urobilinogen Ur Leukocyte Esterase Urine RBC Urine WBC Ur Epithelial Cells Urine Crystals Urine Bacteria Urine Casts Urine Mucus Ur Culture Indicated? Urine Glucose Acetaminophen COVID-19 Source SARS-CoV-2 (PCR)
--- NOTE | 2020-12-17 14:53 | PT.INTREAT ---
Date of service: 12/17/20 Time of Service: 14:53 PT Notes Visit Reasons: Urinary tract infection Physical Therapy Inpatient Treatment Note Date: 12/17/2020 Precautions: Fall. Standard. Activity as tolerated. Non-ambulatory, bed-bound. Subjective: Per Sandie, prior to diagnosis of lung cancer, patient was fully ambulatory. Patient had remnant affectation of decreased peripheral vision on the L and impaired sense of smell but no were no significant motor control impairments in B UE/LE from his TBI 50 years ago. elaborated that at home, patient sits up on the edge of bed in the morning and lunch time for meals. He does toileting using the bed lui. He rarely does bed to wheelchair transfer but when he does, he uses a supine>sit>stand device which her grabs a hold on to be safe. The longest patient stood was 2.5 minutes. Home health PT had been coming but progress has been limited by lung cancer diagnosis/complications. is receptive to trying STEDY lift for for this afternoon. Objective: General Observation: Supine in bed. Ledbetter catheter in place. IV access in left UE. L UE intermittent transient spasms noted. Mental Status: Alert and oriented as to person and place. Able to pay attention, focus, and respond appropriately. Likes to share jokes/riddles. Pain: Significant pain in L shoulder and R shoulder Bed Mobility/Transfers: Attempted supine to sit with HOB at about 50 degrees with assist of nurse Alessia and stand by assist of Sandie. Unable to pull using L hand due to L shoulder pain which states is new. Increased shaking observed in L UE with effort. Deferred any further attempts and repositioned patient back to supine for comfort. Gait: N/A. Non-ambulatory. Balance: Static Sitting: Unable Dynamic Sitting: Unable Static Standing: Unable Dynamic Standing: Unable Assessment: Will attempt another supine<>sit and edge of bed sitting tomorrow afternoon with . Will assess benefit of overhead trapeze to increase bed mobility. Range of motion exercises and pain-relieving activities in the morning. Will coordinate with nurse and nurse staff for pre-medication and needed assistance. Plan of care and benefits of motorized wheelchair use were discoussed with patient and for this session. Plan of Care/Treatment Plan: 1-2x/day, 7 days/week x 1 week. Plan of care has been reviewed with the CONSERVATION PLANNER providing the service under Physical Therapy direction. Initiate Physical Therapy intervention for strengthening, bed mobility, transfers, gait, stairs, balance training, and use of assistive device. DISCHARGE RECOMMENDATIONS: Consider use of motorized wheelchair for improved mobility at home. Resume HH PT/OT/nursing services as needed. May benefit from OT services to maximize functional use of B UE. TREATMENT CODE/TIME: 61757 x 31 minutes beginning at 13:16 PM and 14:53 PM.
[2020-12-17 16:10] VITALS: BP 155/83; PULSE 76; RESP 18; TEMP 37.5; O2SAT 95
[2020-12-17] MEDS: Naproxen 500 MG TAB PO (18:46)
[2020-12-17] MEDS: Normal Saline Flush 10 ML SYR IVP (20:26)
[2020-12-17] MEDS: Insulin Aspart 300 UNITS/3 ML PEN SC (22:07)
[2020-12-17 23:52] VITALS: BP 134/74; PULSE 58; RESP 17; TEMP 35.8; O2SAT 96
[2020-12-18] MEDS: Docusate Sodium 100 MG CAP PO ×2 (02:02→08:20)
[2020-12-18] MEDS: Polyethylene Glycol 3350 17 GM PACKET PO (02:02)
[2020-12-18 07:04] LABS: Abs Immature Grans 0.04 10^3/uL (0.0-0.06); Absolute Basophil Count 0.02 10^3/uL (0.0-0.2); Absolute Eosinophil Count 0.31 10^3/uL (0.0-0.7); Absolute Lymphocyte Count 1.56 10^3/uL (1.2-3.4); Absolute Monocyte Count 1.05 10^3/uL (0.1-0.8); Absolute Neutrophil Count 5.11 10^3/uL (1.2-6.7); Basophils % 0.2; Eosinophils % 3.8; HCT 32.1 % (40.0-50.0); Immature Grans % 0.5; Lymphocytes % 19.3; MCH 25.6 pg (27.0-33.0); MCHC 31.2 % (32.0-36.0); MCV 82.3 fL (80-95); MPV 10.1 fL (8.0-11.0); Neutrophils % 63.2; Nucleated RBC 0 %; Platelet Count 248 10^3/uL (130-400); RDW 15.9 % (11.8-14.1); RDW-SD 48.2 fL; WBC 8.09 10^3/uL (4.4-10.8)
[2020-12-18 07:15] LABS: Anion Gap 9.7 mmol/L (3-11); BUN 24 mg/dL (7-18); CO2 26.3 mmol/L (21.0-32.0); CREATININE 1.5 mg/dL (0.70-1.30); Calcium 9.1 mg/dL (8.5-10.1); Chloride 102 mmol/L (98-107); Glucose 83 mg/dL (74-106); Potassium 3.8 mmol/L (3.5-5.1); Sodium 138 mmol/L (136-145)
[2020-12-18 07:33] VITALS: BP 133/84; PULSE 49; RESP 18; TEMP 36.4; O2SAT 94
[2020-12-18] MEDS: Normal Saline Flush 10 ML SYR IVP ×2 (08:20→09:29)
[2020-12-18] MEDS: Apixaban 5 MG TAB PO (08:20)
[2020-12-18] MEDS: Milk of Magnesia 30 ML CUP PO (08:20)
[2020-12-18] MEDS: cefTRIAXone 1 GM/50 ML BAG IVPB (08:21)
[2020-12-18] MEDS: Normal Saline 500 ML 100 ML IV (08:21)
[2020-12-18] MEDS: Ciprofloxacin 500 MG TAB PO (09:52)
[2020-12-18] MEDS: Acetaminophen 500 MG TAB 1000 MG PO (11:04)
--- NOTE | 2020-12-18 11:17 | PDOC.CMDIS ---
- If Service Date Differs Date of service: 12/18/20 Time of Service: 16:51 LACE Index Scoring Tool - Questions: Length of Stay (in days): 2 Acuity (Admit via E.D.?): Yes Comorbidities: Diabetes w/o Complication, Any Tumor, Liver or Renal Disease E.D. Visits: 1 - Answers: Total Score: 11 Risk of Readmission: High Risk Care Management Discharge Reason for Hospitalization: UTI. Discharge Plan: Edward will be discharged home with a resumption of RN, PT, and OT when medically cleared by provider. He will follow up with his PCP and discharge plan of care as directed. He will be driven home by EMS, coordinated by this television script writer. Patient/Family Education Needs: Review discharge instructions, discuss Ask Me Three. Services Needed at Discharge: Home Health Care Services (Resume RN/PT/OT), Transportation (EMS )
--- NOTE | 2020-12-18 11:22 | W.PM.DS.N ---
Date of service: 12/18/20 Time of Service: 11:22 DS: Diagnosis Discharge Diagnosis (1) UTI (urinary tract infection): Start date: 12/18/20 Start time: 11:23 Status: Acute Asessment and Plan: Urine culture with e.coli sensitive to cipro. Will switch to PO cipro x 5 days as he received 3 days ceftriaxone WBC normalized. Blood cultures negative Catheter exchanged on admission Will resume HH PT/OT RN services (2) Lung cancer: Start date: 12/18/20 Start time: 11:28 Status: Chronic Asessment and Plan: S/p Right upper lobectomy in 08/2020. No mets per . Moderate pleural effusion noted on imaging. Continue to monitor, likely due to recent surgery. (3) History of lobectomy of lung: Start date: 12/18/20 Start time: 11:28 Status: Chronic Asessment and Plan: as above (4) Multinodular thyroid: Start date: 12/18/20 Start time: 11:29 Status: Acute Asessment and Plan: Noted on CT. No follow up recommended. (5) Insulin dependent diabetes mellitus: Start date: 12/18/20 Start time: 11:29 Status: Chronic Asessment and Plan: Continue home regimen (6) CKD (chronic kidney disease): Start date: 12/18/20 Start time: 11:29 Status: Chronic Asessment and Plan: at baseline (7) Hx of traumatic brain injury: Start date: 12/18/20 Start time: 11:30 Status: Chronic Asessment and Plan: He remains a FULL code. They went back and forth on whether he would want to be intubated or not. He would benefit from further discussion of code status and goals of care. Palliative will follow patient in community above case discussed with Dr. Lyman Discharge Plan Disposition Patient Disposition: HOME W/HOME HEALTH SERVICE Condition: Improving Discharge Details Reason For Visit: UTI Admit Date/Time: 12/16/20 16:58 Admit Provider: Segundo Lyman Attending Provider: Segundo Lyman Primary Care Provider: Lucinda Mcgowan Hospital Course Hospital Course: 70-year-old man with a past medical history significant for lung cancer, status post right upper lobectomy in August,, TBI 50 years ago with short term memory loss, CKD, DVT s/p IVC filter at [facility], on apixiban and insulin dependent diabetes. He presented to the emergency department day of admission with increased weakness and mild confusion. He was noted to be febrile at home. He has a chronic Ledbetter catheter which was changed last week. In the emergency department, his labs were notable for elevated BUN of 21 and creatinine of 1.5, which is his baseline. He was also noted to have leukocytosis to 13.79 and stated UA was suspicious for UTI. He was started on IV ceftriaxone. He was referred for admission to the [facility] floor. Over course of admission he was found to have e. coli growing in his urine culture. Blood culture NGTD. He was on ceftrixone for 2 days. Confusion cleared up; WBC normalized. He was afebrile. PT worked with patient. He did c/o pain to his arms and shoulders but he does have chronic pain to back and shoulders this was not above his chronic pain. Ledbetter was exchanged on admission. he is feeling better and ready to be discharged home. He denies CP, SOB, N/V/D. He will be discharged home on cipro for 4 days for a total of 5 day course and 7 days antibiotics. F/u with pcp in 2 weeks. Resume HH nursing PT/OT. Home Meds and New Rx's Prescriptions: New ciprofloxacin HCl 500 mg Tablet 500 mg PO DAILY Qty: 4 RF: 0 Continued Levemir U-100 Insulin 100 UNIT/1 ML solution 25 unit SQ BID RF: 0 albuterol sulfate [Proventil HFA] 6.7 GM HFA aerosol inhaler 2 puff Inhalation .Q6HRS RF: 0 albuterol sulfate 2.5 MG/3 ML solution for nebulization 3 ml Inhalation QID PRN PRN (Reason: Dyspnea) Qty: 30 RF: 0 tamsulosin 0.4 mg capsule 0.4 mg PO DAILY RF: 0 Eliquis 5 mg tablet 5 mg PO BID RF: 0 Discharge Instructions Stand Alone Forms: Nursing Discharge Form Referrals: Lucinda Mcgowan [Primary Care Provider] - 12/26/20 12:45 pm Activity:: Activity as Tolerated Equipment/Supplies:: No Equipment Needed Diet:: Carb Counting Discharge Orders Discharge Orders: Discharge Order (Routine); Ordered 12/18/20 Ordered By: Kristy Foulke DS: Summary Time Spent with Patient providing and/or coordinating discharge services: Less than 30 minutes (approx 25 ) Status at Discharge Functional status at discharge: wheelchair bound Overall status at discharge: patient is back to baseline Mental Status: mental status grossly normal Speech and Movement: speech and movement normal Mood: congruent mood Affect: normal affect Exam Narrative Exam Narrative: General: chronically ill appearing man, sitting up in chair AAOX3. States had pain but improving, does not move stays still. HEENT: normocephalic, atraumatic, pupils equal and round, makes eye contact, mucous membranes moist. Neck: supple. Cardiovascular: heart sounds regular, nontachycardic. Respiratory: respirations appear even and unlabored, lung sounds are clear on limited anterior and lateral exam. Well healed incision right/lateral chest. GI: round abdomen, soft, mildly tender on palpation, nondistended, +BS. Extremities: venous stasis changes to BLEs. +LUE tremor, unable to lift RUE off bed. Psych Mental Status: mental status grossly normal Speech and Movement: speech and movement normal Mood: congruent mood Affect: normal affect DS: Data Vitals/I&O Vitals and I&O: Vital Signs Temperature 36.4 C L 12/18/20 07:33 Temperature Source Tympanic 12/18/20 07:33 Pulse 49 L 12/18/20 07:33 Pulse Rhythm Regular 12/18/20 02:10 Pulse 67 12/16/20 19:31 Respiratory Rate 18 12/18/20 07:33 Respiratory Effort Non-Labored 12/18/20 02:10 Respiratory Depth Normal 12/18/20 02:10 Respiratory Pattern Normal 12/18/20 02:10 Blood Pressure 133/84 12/18/20 07:33 Blood Pressure Mean 71 12/16/20 19:30 Blood Pressure Position Sitting 12/16/20 12:50 Pulse Oximetry 94 12/18/20 07:33 Oxygen Delivery Method Room Air 12/18/20 07:33 Oxygen Flow Rate 0 12/18/20 07:33 Pain Level 9 12/18/20 11:04 Comment 12/18/20 08:00 Intake & Output 12/17/20 12/17/20 12/18/20 11:59 23:59 11:59 Intake Total 1786.667 / 2025.667 240 / 7 355.000 / 355.000 Output Total 375 / 1175 800 / 1175 450 / 450 Balance 1411.667 / 851.667 -560 / 851.667 -95.000 / -95.000 Weight 111 kg 110 kg Intake: IV 1306.667 / 1306.667 115.000 / 115.000 Oral 480 / 720 240 / 720 240 / 240 Output: Urine 375 / 1175 800 / 1175 450 / 450 Other: Urine Color Light Lanette Light Lanette Yellow Urine Appearance Sediment Clear Clear Data Completed and Pending Completed studies during hospitalization [Text1]: Exam(s) a CT:CT chest/abd/pel w Exam(s) CT CHEST/ABD/PEL W EXAM: CT CHEST/ABD/PEL W CLINICAL HISTORY: right chest and abd pain, hx of aneurysm, cancer, TECHNIQUE: Imaging Protocol: Axial computed tomography images with coronal and sagittal reformatted images were created and reviewed CONTRAST MATERIAL: Intravenous: Omnipaque 350 Contrast volume:125 mL Oral: No COMPARISON: CT CT CHEST/ABD/PEL W from 02/21/2020 FINDINGS: CHEST: Tracheobronchial tree: Patent where visualized. Pulmonary parenchyma: The patient is status post right upper lobectomy. There is a moderate right pleural effusion. There is a very small subjacent infiltrate. This may represent atelectasis or pneumonia. No architectural distortion. Visualized thyroid gland: There is a 1 cm hypodense nodule in the left lobe of the thyroid gland. No associated suspicious findings. Mediastinum and Gabi: No dominant adenopathy or fluid collection. Pleura: There is a moderate-sized right pleural effusion. No left pleural effusion is present. Heart: The heart is not dilated. Mild coronary artery calcification. No pericardial effusion. Aorta: Thoracic aorta non-dilated. Atherosclerosis. Lymph nodes: Within normal limits. Soft tissues: Unremarkable. Bones:Postsurgical changes in the right hemithorax. Otherwise stable osseous findings. ABDOMEN: Liver: Normal density. There is a stable cyst in the right lobe. No suspicious hepatic mass. Portal, Superior Mesenteric, and Splenic Veins: Unremarkable. Gallbladder and Biliary Tract: Cholelithiasis. No biliary ductal dilatation. Pancreas: Normal density, no abnormal calcifications or inflammatory process. Spleen: Normal. Adrenals: No masses seen. Kidneys: Normal size, contour and axis. No radiodense stones or obstructive uropathy. Stable bilateral renal cysts. Abdominal Aorta: Abdominal portion non-dilated. Atherosclerosis. IVC: IVC filter in place. Bowel: No obstruction or bowel wall thickening. Appendix is unremarkable. Sigmoid diverticulosis, but no diverticulitis. Peritoneal Cavity: No ascites, collection or mesenteric inflammatory response. No free air. Lymph Nodes: Within normal limits. Bones: Unchanged sclerotic lesions are seen in the bones. There is a stable lucency in the right iliac bone. Soft Tissues: Unremarkable. PELVIS: Bladder: There is a Ledbetter catheter in the urinary bladder. There is thickening of the wall of the urinary bladder which appears asymmetric and thicker on the right. The prostate gland appears enlarged. The bladder wall thickening may be secondary to chronic bladder outlet obstruction but a bladder mass, or an infectious or inflammatory process should be considered. Reproductive Organs: Please see above. Lymph Nodes: Within normal limits. Bones: Within normal limits. IMPRESSION: 1. Thickening of the wall of the urinary bladder. While this may be due to underdistention there is some asymmetric right bladder wall thickening. An inflammatory infectious process or bladder mass cannot be excluded. Chronic bladder outlet obstruction secondary to an enlarged prostate gland should also be considered. 2. Prostatic gland enlargement. 3. Stable findings of hepatic and renal cysts, sigmoid diverticulosis and cholelithiasis. 4. Stable osseous lesions. 5. Interval right upper lobectomy. 6. Moderate right pleural effusion 7. 1 cm left lobe thyroid nodule. No follow-up is recommended. 8. Results of this exam have been verbally communicated with provider. Labs on day of discharge: Labs from last 24 hours 12/18/20 12/18/20 06:20 06:20 WBC 8.09 RBC 3.90 L Hgb 10.0 L Hct 32.1 L MCV 82.3 MCH 25.6 L MCHC 31.2 L RDW 15.9 H Plt Count 248 MPV 10.1 Immature Gran % 0.5 Neutrophils % 63.2 Lymphocytes % 19.3 Monocytes % 13.0 Eosinophils % 3.8 Basophils % 0.2 Nucleated RBC % 0 Absolute Neutrophils 5.11 Absolute Lymphocytes 1.56 Absolute Monocytes 1.05 H Absolute Eosinophils 0.31 Absolute Basophils 0.02 Sodium 138 Potassium 3.8 Chloride 102 Carbon Dioxide 26.3 Anion Gap 9.7 BUN 24 H Creatinine 1.5 H Estimated GFR/1.73 m2 46.00 Glucose 83 Calcium 9.1 Preliminary micro results at discharge 12/16/20 16:18 Blood Culture - Preliminary Blood NO GROWTH 24 HOURS 12/16/20 16:18 Blood Culture - Preliminary Blood NO GROWTH 24 HOURS PFSH Medical History CKD (chronic kidney disease) DVT (deep venous thrombosis) S/p IVC filter Hx of traumatic brain injury Insulin dependent diabetes mellitus Lung cancer Multinodular thyroid UTI (urinary tract infection) Surgical History History of lobectomy of lung Social History Smoking/Tobacco Use Status: Former Tobacco Use Smoking risk assessment performed?: Yes Alcohol Intake: current Alcohol Intake frequency: holidays/special occasions only Drug use: Occasionally Substance use type: marijuana Details: pt states he has medical marijuana Do you feel safe at home: Yes Do you feel safe in your relationship?: Yes
[2020-12-18] MEDS: oxyCODONE 10 MG TAB PO (11:58)
--- NOTE | 2020-12-19 08:53 | PT.INDS ---
Date of service: 12/19/20 Time of Service: 08:53 PT Notes Visit Reasons: Urinary tract infection Physical Therapy Inpatient Discharge Summary Date: 12/19/2020 Dates of service: 12/17/2020 only This is a clinical summary of care provided on the duration of dates listed above. No charge was made in the completion of this documentation. Referring Doctor: Mary Light NP PT Orders: PT CONSULT: Weakness r/t UTI, right UE weakness/pain r/t DJD, history TBI, recent RU lobectomy Precautions: Fall. Standard. Activity as tolerated. Non-ambulatory, bed-bound. Patient Profile/Admitting Diagnosis: Andres is a 70-year-old male with past medical history significant for traumatic brain injury and history of lung carcinoma status post right upper lobe lobectomy in August 2020 who presented to the ED on 12/16/2020 with mild confusion, increasing weakness, and fever. Patient is diagnosed with urinary tract infection. He is on anticouagulation due to previously diagnosed DVT of the right LE. PMHX: Medical History (Updated 12/16/20 @ 19:11 by Mary Light NP) CKD (chronic kidney disease) DVT (deep venous thrombosis) S/p IVC filter Hx of traumatic brain injury Insulin dependent diabetes mellitus Lung cancer Multinodular thyroid UTI (urinary tract infection) Surgical History History of lobectomy of lung Social History/Home Situation: Lives with in a private home with 3 steps to enter with one rail. Receives PT/OT/nursing 2x/week. 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 has been his main healthcare agent. Per Nurse Aggarwal, has told her that patient is bed-bound and rarely stands up. He uses the bed lui for all toileting tasks. Per patient, he has not walked for quite a while now and he uses a stand assist device to for bed mobility and transfer. Equipment Owned/DME: Hospital bed, overhead trapeze, transfer chair, stand assist device, bedpan Subjective: NT. See most recent SOLUTIONS CONSULTANT notes. Objective: General Observation: NT. See most recent SOLUTIONS CONSULTANT notes. Mental Status: NT. See most recent SOLUTIONS CONSULTANT notes. Pain: NT. See most recent SOLUTIONS CONSULTANT notes. ROM: Right Upper Extremity: Able to reach opposite shoulder but unable to bring hand to mouth, to opposite hip and to opposite knee. Opening and closing of hand WFL. Left Upper Extremity: Able to reach opposite shoulder, to opposite hip and to opposite knee. Opening and closing of hand WFL. Right Lower Extremity: Hip flexion unable. Hip abduction unable. Hip ER/IR unable. Knee flexion unable. Knee extension 0 degrees. Ankle dorsiflexion/eversion to neutral only. Ankle plantarflexion/inversion WFL. Left Lower Extremity: Hip flexion to only about 30 degrees. Hip abduction to about 10 degrees. Hip ER/IR WFL. Knee flexion to only about 30 degrees. Knee extension 30 degrees to 0 degrees. Ankle dorsiflexion to neutral only. Ankle plantarflexion WFL. Strength: Right Upper Extremity: Shoulder flexors 5/5. Shoulder abductors 5/5. Shoulder ER 5/5/ Shoulder IR 5/5. Forearm pronators 5/5. Forearm supinators 5/5. Elbow flexors 5/5. Elbow extensors 5/5. Web Design Instructor strong. Left Upper Extremity: Shoulder flexors 5/5. Shoulder abductors 5/5. Shoulder ER 5/5/ Shoulder IR 5/5. Forearm pronators 5/5. Forearm supinators 5/5. Elbow flexors 5/5. Elbow extensors 5/5. Web Design Instructor strong. Right Lower Extremity: Hip flexors 5/5. Hip abductors 5/5. Hip external rotators 5/5. HIp internal rotators 5/5. Knee flexors 5/5. Knee extensors 5/5. Ankle dorsiflexors/evertors 5/5. Ankle plantarflexors/invertors 5/5. Left Lower Extremity: Hip flexors 5/5. Hip abductors 5/5. Hip external rotators 5/5. HIp internal rotators 5/5. Knee flexors 5/5. Knee extensors 5/5. Ankle dorsiflexors/evertors 5/5. Ankle plantarflexors/invertors 5/5. Bed Mobility/Transfers: Rolling moderate assist of 2 Supine to sit will assess with assist of 2 after interview with Sit to supine will assess with assist of 2 after interview with Sit to stand will assess with STEDY lift and assist of 2 after interview with Stand to sit will assess with STEDY lift and assist of 2 after interview with Bed to bedside commode will assess with STEDY lift and assist of 2 after interview with Bedside commode to bed will assess with STEDY lift and assist of 2 after interview with Bed to chair will assess with STEDY lift and assist of 2 after interview with Chair to bed will assess with STEDY lift and assist of 2 after interview with Gait: N/A. Non-ambulatory. Balance: Static Sitting: Unable Dynamic Sitting: Unable Static Standing: Unable Dynamic Standing: Unable Assessment: Continues to be anxious about getting out of bed. Weakness resulting from new UTI, 4 rounds of chemotherapy, and lung surgery back in August. Patient will benefit from home health PT services in order to progress mobility level using least restrictive assistive ambulatory device, assess home safety, identify additional equipment needs, and establish a functional maintenance program that will increase ability of patient to remain at home. Patient will benefit from the use of a motorized wheelchair to maximize independence inside home. Patient continues to present with clinical signs and symptoms consistent with current/admitting diagnoses that have resulted to mobility limitations, gait instability, generalized weakness, and impairment of motor control as demonstrated by the following impairment level findings: 1. Decreased strength to B UE/LE major muscle groups R>>L 2. Limited sitting/standing balance and tolerance 3. Muscle spasms on L UE 4. Limitation of joint range of motion in B UE/LE 5. Pain in R shoulder Impairments are continuing to contribute to the following functional limitations: 1. Dependent bed mobility skills 2. Increased dependence with transfers 3. Non-ambulatory 4. Increase completion time for mobility ADL performance 5. Increased fall risk 6. Increased risk for skin breakdown 7. Inability to return to prior living environment at this time Goals: Goals X1 week 1. Supine-Sit minimal assist using overhead trapeze NOT MET 2. Sit-Supine minimal assist to B LE NOT MET 3. Sit-Stand minimal assist and stand by assist of another using STEDY lift NOT MET 4. Stand-Sit minimal assist and stand by assist of another using STEDY lift NOT MET 5. Bed-Chair minimal assist and stand by assist of another using STEDY lift NOT MET 6. Chair-Bed minimal assist and stand by assist of another using STEDY lift NOT MET 7. Good static and dynamic sitting balance/tolerance NOT MET DISCHARGE RECOMMENDATIONS: Consider use of motorized wheelchair for improved mobility at home. Resume HH PT/OT/nursing services as needed. May benefit from OT services to maximize functional use of B UE. TREATMENT CODE/TIME: [place] Thank you for the opportunity to participate in the care of this patient. Krysten Singh PT, DPT, CLT [facility] [place], [place]
== END 2020-12-18 14:16 | disposition home health service (06) | DRG 699 ==
LOC: ER 18:45 → MS 19:47
PROVIDERS: Nurse Practitioner; Nurse Practitioner Family; Admitting Provider Family Medicine; Emergency Provider Physician Assistant; PCP Nurse Practitioner Family; Visit Provider Family Medicine
DX: T83.511A Infection and inflammatory reaction due to indwelling urethral catheter, initial encounter (principal); C34.11 Malignant neoplasm of upper lobe, right bronchus or lung; I82.591 Chronic embolism and thrombosis of other specified deep vein of right lower extremity; N39.0 Urinary tract infection, site not specified; E11.22 Type 2 diabetes mellitus with diabetic chronic kidney disease; M19.011 Primary osteoarthritis, right shoulder; Z20.822 Contact with and (suspected) exposure to COVID-19; N18.9 Chronic kidney disease, unspecified; R53.1 Weakness; B96.20 Unspecified Escherichia coli [E. coli] as the cause of diseases classified elsewhere; E04.2 Nontoxic multinodular goiter; Z90.2 Acquired absence of lung [part of]; Z87.820 Personal history of traumatic brain injury; Z79.4 Long term (current) use of insulin; Z79.01 Long term (current) use of anticoagulants
CPT/HCPCS: 36415; 74177; 80048; 80053; 82550; 87040; 87077; 87635; 93005; 96361; 96365; 96366; 96367; 97163; 97530; 99285; 71260; 80329; 81003; 81015; 83605; 84484; 85025; 87086; 87186; 93010; 99223; 99232; 99238; J0131; J0696; J3490; Q9967

== ENCOUNTER 2021-01-19 13:31 | Inpatient (IN) | payer MEDICARE, SELFPAY ==
[2021-01-19] VITALS (35 sets, daily range): BP systolic 115–145; BP diastolic 65–88; PULSE 74–102; RESP 17–26; TEMP 36.5–38.3; O2SAT 91–99
--- NOTE | 2021-01-19 13:56 | W.ED.GENAD ---
Discharge Plan Disposition Patient Disposition: [facility] INPATIENT Condition: Stable Discharge Details Clinical Impression: Fever, UTI (urinary tract infection), Cellulitis of wrist Admit Date/Time: 01/19/21 16:18 Admit Provider: Jairo Wright Attending Provider: Jairo Wright Primary Care Provider: Lucinda Mcgowan ED Provider: Angella Zuniga Discharge Data Discharge Date/Time-TO BE ENTERED AT DEPARTURE: 01/19/21 17:55 Medical Decision Making 70-year-old male with a history of chronic kidney disease, lung cancer with lobectomy, diabetes, obesity, chronic indwelling Saeed catheter with previous history of UTIs presents for fever, chills, body aches after Saeed catheter change 3 days ago. Oral temp 99.4. Patient appears uncomfortable. He mainly complains of pain with moving all of his extremities. He has some edema and mild erythema to his right wrist. Suspect most likely UTI, but also consider a right wrist cellulitis. Will check screening labs, lactate, urinalysis, CT chest abdomen pelvis, right wrist x-ray. Will give IV Tylenol and morphine. Labs and imaging reviewed. White blood cell count elevated at 14. ESR elevated at 117. Lactate normal at 1.2. CRP elevated at 18. Urinalysis notes 3-5 WBCs, 5-[address] chest abdomen pelvis negative for acute findings. Right wrist x-ray unremarkable. Patient reassessed and states pain is slightly improved. Rectal temp 100.9. He was already given IV Tylenol and cannot take Toradol due to Eliquis. We will continue IV fluids and give another dose of morphine. Source of infection not completely clear at this time, but consider UTI or wrist cellulitis among possible causes. Rapid Covid swab negative. Dose of IV Vanco and cefepime ordered. Case discussed with hospitalist who accepts patient for admission and who requested orthopedics consult for potential wrist cellulitis and consideration of possible septic arthritis. Case discussed with Dr. Washington who agreed with plan for wrist aspiration if possible. 2 cc of joint fluid obtained and sent for culture. Medical Records Medical records reviewed: Yes I reviewed the patient's medical records. Imaging Data Radiologic Study: Radiologist's impression: CT CHEST PE ABD PELVIS W TECHNIQUE: CT angiography of the chest, abdomen and pelvis was performed with bolus infusion of 100 cc of Omnipaque 350. Axial CT angiography was performed with multi-slice acquisition and multi-planar and/or 3D reconstructions. COMPARISON: CT CT CHEST/ABD/PEL W from 12/16/2020 FINDINGS: Prior right upper lobectomy noted. Pleural fluid noted on the right, grossly unchanged from prior study of December 16. No new pulmonary consolidation.. No evidence of pulmonary embolic disease. No thoracic aortic dissection, ascending thoracic aorta is ectatic at 41 millimeters. Major branches of the thoracic aorta appear normal. No pleural effusion. No gross mediastinal or hilar adenopathy. No other significant interval change from prior study. Previously noted hepatic cysts again seen and unchanged. Cholelithiasis noted. No biliary ductal dilatation. Spleen and pancreas appear intact. Multiple bilateral renal cysts appear unchanged from prior examinations. Saeed catheter noted in the urinary bladder. No hydronephrosis or nephrolithiasis. No abdominal aortic aneurysm or dissection. Major branches of the abdominal aorta appear normal. IVC filter noted in position. No abdominal or pelvic adenopathy. Normal appendix. No significant abdominal wall hernia. No focal bowel pathology. IMPRESSION: No evidence of acute change in a patient who is status post right upper lobectomy for lung carcinoma. No change from examination of December 16. XR WRIST RT COMPLETE CLINICAL HISTORY: R wrist pain and swelling, r/o acute fx TECHNIQUE: COMPARISON: No exams were available for comparison FINDINGS: Three views were obtained. Carpal alignment appears within normal limits. No evidence of fracture. No gross erosive or destructive lesion seen. IMPRESSION: Negative examination of the wrist. HPI General Mode of arrival: EMS. Date/Time Provider Initiated Documentation: 01/19/21 13:42. Limitations to Documentation: physical limitation. Information obtained by: patient and family. HPI Narrative: Patient is a 70-year-old male with a history of chronic kidney disease, lung cancer with lobectomy, diabetes, chronic indwelling Saeed catheter with previous history of UTI presents for fever with concern for UTI. T-max today 100.4. states that patient usually develops a urinary tract infection after his Saeed catheter change. She states it is changed monthly and was last changed 2 days ago. She states he was given prophylactic antibiotics in order to prevent a UTI but states 2 days after the placement of the catheter he developed fever, chills and body aches. She also states she notes that his right wrist appears swollen and red. She denies any known injury. She states that patient can ambulate using a walker but has not been able to move this morning due to her arm and leg pain. She states this extremity pain is usual with his UTIs. She last gave him Tylenol yesterday. No medication for his fever today. Related Data Home Medications Medication Instructions Recorded Confirmed albuterol sulfate 3 ml INHALATION QID PRN PRN #30 01/27/16 01/19/21 vial albuterol sulfate [Proventil HFA] 2 puff INHALATION .Q6HRS 01/27/16 01/19/21 Levemir U-100 Insulin 25 unit SQ BID 02/09/18 01/19/21 Eliquis 5 mg PO BID 12/16/20 01/19/21 Previous Rx's Medication Instructions Recorded albuterol sulfate 3 ml INHALATION QID PRN PRN #30 01/27/16 vial Allergies Allergy/AdvReac Type Severity Reaction Status Date / Time tramadol AdvReac Other (See Unverified 01/19/21 13:49 Comment) General Stated Complaint: Fever ANNAMARIA: 3 Review of Systems All systems reviewed & are unremarkable except as noted in HPI and below Constitutional Constitutional: Reports as per HPI, Denies chills and Reports fever(s) Eyes Eyes: Denies blurry vision ENT Ears, Nose, Mouth, and Throat: Denies dizziness, Denies sore throat and Denies throat swelling Cardiovascular Cardiovascular: Reports chest pain and Denies dyspnea Respiratory Respiratory: Reports cough and Denies dyspnea Gastrointestinal Gastrointestinal: Denies abdominal pain, Denies diarrhea and Denies vomiting Genitourinary Genitourinary: Denies hematuria and Denies dysuria Musculoskeletal Musculoskeletal: Denies back pain, Denies numbness and Reports other (b/l arm, leg pain) Integumentary/Breasts Skin/Breast: Denies lesions and Denies rash Neurologic Neurologic: Denies dizziness, Denies localized weakness and Denies numbness Allergic/Immunologic Allergic/Immunologic: Denies throat swelling [facility] Medical History CKD (chronic kidney disease) DVT (deep venous thrombosis) S/p IVC filter Hx of traumatic brain injury Insulin dependent diabetes mellitus Lung cancer Multinodular thyroid UTI (urinary tract infection) Surgical History History of lobectomy of lung Social History Smoking/Tobacco Use Status: Former Tobacco Use Smoking risk assessment performed?: Yes Alcohol Intake: current Alcohol Intake frequency: holidays/special occasions only Drug use: Occasionally Substance use type: marijuana Details: pt states he has medical marijuana Do you feel safe at home: Yes Do you feel safe in your relationship?: Yes Exam Const General: cooperative, healthy appearing and no acute distress HENMT Head: normal to inspection Face and sinus: normal facial exam Eyes General: appearance normal, both eyes and all related structures Pupils: PERRL EOM: EOM intact bilaterally Neck Neck: normal visual inspection and No submandibular swelling Lymphatic: no lymphadenopathy noted Chest Chest: normal inspection of the chest and no tenderness Resp Effort & Inspection: normal respiratory effort and able to speak in complete sentences Auscultation: clear to auscultation bilaterally Cardio Rate: regular rate Rhythm: regular rhythm GI Inspection: normal to inspection Palpation: soft, not firm, not rigid and nontender Auscultation: normal bowel sounds Male General Exam: Yes other (saeed catheter in place) Penis: normal penis Scrotum: scrotum normal Skin General skin exam: no rashes or lesions noted Neuro General: patient alert, patient awake and patient oriented x3 Cognition: normal cognition Speech: speech normal Motor: muscle tone normal throughout Sensory Exam: no sensory deficits noted Extrem General: no edema Other: difficulty lifting b/l arms and legs due to pain Psych Appearance: grossly normal Mental Status: mental status grossly normal Speech and Movement: speech and movement normal Affect: normal affect Course Vital Signs Vital signs: Vital Signs Temperature 99.4 F 01/19/21 13:42 Pulse 102 H 01/19/21 13:42 Respiratory Rate 18 01/19/21 13:42 Blood Pressure 138/74 01/19/21 13:42 Pulse Oximetry 96 01/19/21 13:42 Temperature 99.4 F 01/19/21 13:42 Temperature Source Oral 01/19/21 13:42 Pulse 102 H 01/19/21 13:42 Respiratory Rate 18 01/19/21 13:42 Respiratory Effort Non-Labored 01/19/21 13:49 Blood Pressure 138/74 01/19/21 13:42 Blood Pressure Position Supine 01/19/21 13:42 Pulse Oximetry 96 01/19/21 13:42 Oxygen Delivery Method Room Air 01/19/21 13:42 Oxygen Flow Rate 0 01/19/21 13:42 Pain Level 0 01/19/21 13:42 Comment 01/19/21 13:42 Lab/Test Results Lab/Test Results: 01/19/21 13:43 Blood Blood Culture - Pending 01/19/21 13:43 Blood Blood Culture - Pending Procedures Joint Aspiration/Injection Joint Asp./Inject. 1: Time Out Performed: Yes Joint Aspirated: wrist/hand Ultrasound Guidance: No Skin Prep: Chlorhexidene Local Anesthetic: Lidocaine 1% and with Epi Amount of anesthesia used (mL): 2 Needle Size Used: 22G Fluid Obtained: viscous Total fluid obtained (mL): 2 Patient Tolerated Procedure: well Complications: none
--- NOTE | 2021-01-19 14:00 | RT.EKG_ITS ---
APPROVED REPORT Exam: Resting ECG Reason for Exam: chest pain Patient Location: E HR:96 bpm ECG Measurements Heart Rate 96 AXIS VT 179 P 21 QRSd 88 QRS 52 QT 331 T -8 QTc 419 Conclusion Sinus rhythm...normal P axis, V-rate 60- 99 Inferior infarct, age indeterminate...Q>35mS, T neg, II III aVF. T wave inversion in inferior leads, seen in previous. No STEMI. I have reviewed and interpreted ECG and agree with software generated interpretation.
[2021-01-19 14:25] LABS: Lactate 1.2 mmol/L (0.6-1.4)
[2021-01-19 14:27] LABS: Abs Immature Grans 0.05 10^3/uL (0.0-0.06); Absolute Lymphocyte Count 0.87 10^3/uL (1.2-3.4); Basophils % 0.1; Eosinophils % 0.1; HCT 35.3 % (40.0-50.0); HGB 11.1 g/dL (13.5-17.5); Immature Grans % 0.3; Lymphocytes % 5.9; MCH 24.6 pg (27.0-33.0); MCHC 31.4 % (32.0-36.0); MCV 78.1 fL (80-95); MPV 10.1 fL (8.0-11.0); Monocytes % 9.3; Neutrophils % 84.3; Nucleated RBC 0 %; Platelet Count 268 10^3/uL (130-400); RBC 4.52 10^6/uL (4.36-5.78); RDW 16.6 % (11.8-14.1); WBC 14.79 10^3/uL (4.4-10.8)
[2021-01-19 14:28] LABS: Absolute Basophil Count 0.01 10^3/uL (0.0-0.2); Absolute Eosinophil Count 0.01 10^3/uL (0.0-0.7); Absolute Monocyte Count 1.38 10^3/uL (0.1-0.8); Absolute Neutrophil Count 12.47 10^3/uL (1.2-6.7)
[2021-01-19 14:32] LABS: Bilirubin Negative (Negative); Blood Small (Negative); Clarity Clear (Clear); Glucose Negative (Negative); Ketones Negative (Negative); Leukocyte Esterase Trace (Negative); Nitrite Negative (Negative); Specific Gravity >= 1.030 (1.005-1.025); Urobilinogen 0.2 EU/dL (Up TO 0.2); pH 5.5 (5-8)
[2021-01-19] MEDS: Normal Saline 500 ML IV (14:38)
[2021-01-19 14:40] LABS: ALT 16 U/L (16-63); AST 11 U/L (15-37); Albumin 2.8 g/dL (3.4-5.0); Alkaline Phosphatase 88 U/L (46-116); Anion Gap 11.7 mmol/L (3-11); BUN 19 mg/dL (7-18); Bilirubin, Total 1.4 mg/dL (0.2-1.0); CO2 24.3 mmol/L (21.0-32.0); CREATININE 1.4 mg/dL (0.70-1.30); Calcium 9.3 mg/dL (8.5-10.1); Chloride 98 mmol/L (98-107); Estimated GFR 49.82 (mL/min/1.73m2); Glucose 133 mg/dL (74-106); Sodium 134 mmol/L (136-145); Total Protein 8.2 g/dL (6.4-8.2)
[2021-01-19 14:41] LABS: Bacteria Moderate HPF (Negative); C & S Indicated? Yes; Casts Negative LPF (Negative); Crystals Few Amorphous HPF (Negative); Epithelial Cells Rare HPF (Negative); Mucus Trace (Negative)
[2021-01-19] MEDS: Normal Saline Flush 10 ML SYR IVP ×2 (14:41→17:24)
[2021-01-19] MEDS: ACETAMINOPHEN 1,000 MG/100 ML BTL 400 MG IVPB (14:41)
[2021-01-19 15:15] LABS: C-Reactive Protein 18.14 mg/dL (0.0-0.3)
[2021-01-19 15:16] LABS: ESR 117 mm/hr (0-20)
--- NOTE | 2021-01-19 15:25 | DI.RAD_ITS ---
Exam(s) XR WRIST RT COMPLETE EXAM: XR WRIST RT COMPLETE CLINICAL HISTORY: R wrist pain and swelling, r/o acute fx TECHNIQUE: COMPARISON: No exams were available for comparison FINDINGS: Three views were obtained. Carpal alignment appears within normal limits. No evidence of fracture. No gross erosive or destructive lesion seen. IMPRESSION: Negative examination of the wrist. RADIATION DOSE DELIVERED: Total DLP
--- NOTE | 2021-01-19 15:25 | DI.CT_ITS ---
Exam(s) CT CHEST PE ABD PELVIS W EXAM: CT CHEST PE ABD PELVIS W TECHNIQUE: CT angiography of the chest, abdomen and pelvis was performed with bolus infusion of 100 cc of Omnipaque 350. Axial CT angiography was performed with multi-slice acquisition and multi-planar and/or 3D reconstruc tions. COMPARISON: CT CT CHEST/ABD/PEL W from 12/16/2020 FINDINGS: Prior right upper lobectomy noted. Pleural fluid noted on the right, grossly unchanged from prior st udy of December 16. No new pulmonary consolidation.. No evidence of pulmonary embolic disease. No thora cic aortic dissection, ascending thoracic aorta is ectatic at 41 millimeters. Major branches of the thoracic aorta appear normal. No pleural effusion. No gross mediastinal or hilar adenopathy. No ot her significant interval change from prior study. Previously noted hepatic cysts again seen and unchanged. Cholelithiasis noted. No biliary ductal di latation. Spleen and pancreas appear intact. Multiple bilateral renal cysts appear unchanged from prior examinations. Ledbetter catheter noted in the urinary bladder. No hydronephrosis or nephrolithiasis. No abdominal aortic aneurysm or dissection. Major branches of the abdominal aorta appear normal. IVC filter noted in position. No abdominal or pelvic adenopathy. Normal appendix. No significant abdomi nal wall hernia. No focal bowel pathology. IMPRESSION: No evidence of acute change in a patient who is status post right upper lobectomy for lung carcinoma. No change from examination of December 16. RADIATION DOSE DELIVERED: 2,488.64mGy.cm Total DLP 2,488.64mGy.cm Total DLP DATA REPOSITORY: All CT scans at this facility are submitted to the National Radiology Data Registry (NRDR) Dose Index Registry (DIR) with the [employer] (A[employer]). RADIATION OPTIMIZATION: All CT scans at this facility use at least one of these dose optimization te chniques: automated exposure control; mA and/or kV adjustment per patient size (includes targeted exa ms where dose is matched to clinical indication); or iterative reconstruction.
[2021-01-19] MEDS: Omnipaque 350 MG/ML 100 ML BTL IJ (15:27)
[2021-01-19] MEDS: Normal Saline - Diluent 50 ML VIAL IV (15:27)
[2021-01-19] MEDS: CEFEPIME 2 GM in Normal Saline 100 ML IVPB (16:22)
--- NOTE | 2021-01-19 17:07 | W.PM.HP.N ---
Date of service: 01/19/21 Time of Service: 17:07 Assessment and Plan Assessment and plan (1) Septic joint of right wrist: Start date: 01/19/21 Start time: 19:22 Status: Suspected Assessment and plan: Notice on Wednesday started to worsen on Wednesday unable to ambulate by Wednesday with walker prompting him to seek treatment. Xray was done revealing no abnormality, Aspiration of wrist WBC fluid 26446, fld, poly nuclear wbc 86, spoke with Dr. Washington, not convinced this is septic joint at this time as he is able to move his wrist. he does have history of TBI so he is unable to give exact details, of history. I spoke with his on admission of details. Will follow cultures. Uric acid r/o for gout. within normal limits He does have CRP of 18 with ESR 117 Proacl 0.2 Initiated on vanco and cefepime in ED will continue. Qualifiers: Septic arthritis organism: due to unspecified organism Qualified Code(s): M00.9 - Pyogenic arthritis, unspecified (2) UTI (urinary tract infection): Start date: 01/19/21 Start time: 19:22 Status: Chronic Assessment and plan: Per has indwelling catheter due to failure of several voiding trials he has tried flomax before but it had made him dizzy and was taken off He tends to get UTIs with catheters exchanges therefore was placed on cipro prophylactically, on last admission 5/3 he grew enter face and was discharged home on cipro he has not had any issues until cath exchange again despite having cipro po day prior exchange, day of exchange and after exchange. WBC 14 today Likely source of fever however will r/o septic joint, blood culture and urine cx pending CXR vanco and cefepime tylenol and roxicodone Urology consult renal u/s Qualifiers: Urinary tract infection type: catheter-associated UTI Indwelling urinary catheter type: indwelling urethral catheter Encounter type: initial encounter Qualified Code(s): T83.511A - Infection and inflammatory reaction due to indwelling urethral catheter, initial encounter; N39.0 - Urinary tract infection, site not specified (3) Fever: Start date: 01/19/21 Start time: 19:22 Status: Acute Assessment and plan: Suspected sources UTI, septic joint though unlikely Febrile on admission 38.3 Schedule tylenol and roxicodone for pain CXR negative Qualifiers: Fever type: unspecified Qualified Code(s): R50.9 - Fever, unspecified (4) CKD (chronic kidney disease): Start date: 01/19/21 Start time: 19: Status: Chronic Assessment and plan: at baseline not requiring fluids at this time, does not appear dry or septic. Lactate normal (5) History of lobectomy of lung: Start date: 01/19/21 Start time: : Status: Chronic Assessment and plan: Sep 11 patient after receiving four round chemo had thoracotamy with right upper lobectomy now not showing any signs of cancer per and having 6 months visits with oncology no post radiation or chemo needed. (6) Insulin dependent diabetes mellitus: Start date: 01/19/21 Start time: : Status: Chronic Assessment and plan: Continue levimer Carb diet will be on achs fingersticks and moderate sliding scale (7) Lung cancer: Start date: 01/19/21 Start time: : Status: Chronic Assessment and plan: as above (8) DVT (deep venous thrombosis): Start date: 01/19/21 Start time: 19: Status: Chronic Assessment and plan: [place] [facility] [place] el[place]is with IVC filter continue eliquis (9) Discharge planning issues: Start date: 01/19/21 Start time: : Status: Acute Assessment and plan: Will have PT/OT, palliative evaluate patient and decided snif vs home as he is having weakness. discussed with dr. Altamirano. History of Present Illness History of Present Illness Chief Complaint: UTI, Septic Joint? Narrative: 70 y.o male presents to [facility] after having fever and chills x 3 days. PMH DVT with IVC filter and eliquis, currently on, Lung cancer with thoracotemy and lobe resection on Sep 11 with 4 round chemo prior to surgery; at this time he is no residual cancer, DM, CKD, anemia of chronic disease and indwelling catheter that gets changed weekly. With every change he receives cipro prophylactically due to UTI's however on the last 2 previous catheter changes patient has required admission due to severe UTI. On 12/16 he was admitted with enterococcus face that was sensitive to cipro he was initially on ceftriaxone but then switched to po cipro. His urine cx negative for nitrates and trace leuk estra. He also presents with erythema to right wrist radiating up to thumb. There is swelling and warmth to this area. CRP was 18.14, ESR 117, concern for septic joint as this was sudden onset. Patient states he was able to ambulate with walker on however by Wednesday he was struggling and by today he was in so much pain by his wrist that he could barely move it. He was asked to be admitted to hospitalist for further management. Blood cultures pending, urine culture pending. ER physician spoke with Dr. Washington, aspiration was done by ER physician revealing 39,748 fluid wbc with 86% polynuclear cell leading to septic joint suspicion. Dr. Washington consulted. Patient started on cefepime and vanco. Will trend CRP and ESR. PT/OT consulted, urology, renal u/s as patient continues to fail voiding trials. Analgesics for pain multimodal. At this time he is afebrile. Denies CP, SOB, N/V/d. Review of Systems All systems reviewed & are unremarkable except as noted in HPI and below PFSH Medical History CKD (chronic kidney disease) DVT (deep venous thrombosis) S/p IVC filter Hx of traumatic brain injury Insulin dependent diabetes mellitus Lung cancer Multinodular thyroid UTI (urinary tract infection) Surgical History History of lobectomy of lung Social History Smoking/Tobacco Use Status: Former Tobacco Use Smoking risk assessment performed?: Yes Alcohol Intake: current Alcohol Intake frequency: holidays/special occasions only Drug use: Occasionally Substance use type: marijuana Details: pt states he has medical marijuana Do you feel safe at home: Yes Do you feel safe in your relationship?: Yes Meds Allergies and Home Medications Allergies Allergy/AdvReac Type Severity Reaction Status Date / Time tramadol AdvReac Other (See Unverified 01/19/21 13:49 Comment) Home Medications Medication Instructions Recorded Confirmed Type albuterol sulfate 3 ml INHALATION QID PRN PRN #30 01/27/16 01/19/21 Rx vial albuterol sulfate [Proventil HFA] 2 puff INHALATION .Q6HRS 01/27/16 01/19/21 History Levemir U-100 Insulin 25 unit SQ BID 02/09/18 01/19/21 History Eliquis 5 mg PO BID 12/16/20 01/19/21 History Exam Narrative Exam Narrative: Const: Elderly male laying in bed, pleasant AAO x3, calm and cooperative. HENMT: Normocephalic atraumatic, PERRLA, EOMI NECK: no JVD, no lymphedema Chest: scar to chest healing, otherwise intact Resp: LSC diminshed anteriorly, unable to listen posteriorly Cardio: NSR ectopic beats once in while, no murmur appreciated GI: BSx4 abd soft nontender : saeed intact draining yellow urine Back: unable to visualize Skin: bilateral venous stasis discoloration to lower extremities, no rashes, multiple scars to various areas of body Extrem: pppx2, cmst, no clubbing, slight edema bilaterally Psych: congurent mood, normal affect. Results Labs Result diagrams: 01/20/21 06:44 01/20/21 06:44 Labs: Laboratory Results - last 24 hr 01/19/21 01/19/21 01/19/21 14:18 14:18 14:18 WBC 14.79 H RBC 4.52 Hgb 11.1 L Hct 35.3 L MCV 78.1 L MCH 24.6 L MCHC 31.4 L RDW 16.6 H Plt Count 268 MPV 10.1 Immature Gran % 0.3 Neutrophils % 84.3 Lymphocytes % 5.9 Monocytes % 9.3 Eosinophils % 0.1 Basophils % 0.1 Nucleated RBC % 0 Absolute Neutrophils 12.47 H Absolute Lymphocytes 0.87 L Absolute Monocytes 1.38 H Absolute Eosinophils 0.01 Absolute Basophils 0.01 ESR VBG Lactate 1.2 Sodium 134 L Potassium 4.0 Chloride 98 Carbon Dioxide 24.3 Anion Gap 11.7 H BUN 19 H Creatinine 1.4 H Estimated GFR/1.73 m2 49.82 Glucose 133 H Calcium 9.3 Total Bilirubin 1.4 H AST 11 L ALT 16 Alkaline Phosphatase 88 C-Reactive Protein Total Protein 8.2 Albumin 2.8 L Urine Color Urine Clarity Urine pH Ur Specific [place] Urine Protein Urine Ketones Urine Blood Urine Nitrite Urine Bilirubin Urine Urobilinogen Ur Leukocyte Esterase Urine RBC Urine WBC Ur Epithelial Cells Urine Crystals Urine Bacteria Urine Casts Urine Mucus Ur Culture Indicated? Urine Glucose 01/19/21 01/19/21 01/19/21 14:18 14:18 14:25 WBC RBC Hgb Hct MCV MCH MCHC RDW Plt Count MPV Immature Gran % Neutrophils % Lymphocytes % Monocytes % Eosinophils % Basophils % Nucleated RBC % Absolute Neutrophils Absolute Lymphocytes Absolute Monocytes Absolute Eosinophils Absolute Basophils ESR 117 H VBG Lactate Sodium Potassium Chloride Carbon Dioxide Anion Gap BUN Creatinine Estimated GFR/1.73 m2 Glucose Calcium Total Bilirubin AST ALT Alkaline Phosphatase C-Reactive Protein 18.14 H Total Protein Albumin Urine Color Yellow Urine Clarity Clear Urine pH 5.5 Ur Specific [place] >= 1.030 H Urine Protein 30 H Urine Ketones Negative Urine Blood Small H Urine Nitrite Negative Urine Bilirubin Negative Urine Urobilinogen 0.2 Ur Leukocyte Esterase Trace H Urine RBC 5-10 H Urine WBC 3-5 Ur Epithelial Cells Rare Urine Crystals Few amorphous Urine Bacteria Moderate Urine Casts Negative Urine Mucus Trace Ur Culture Indicated? Yes Urine Glucose Negative Last Vital Signs Temp 38.3 C H 01/19/21 16:16 Pulse 86 01/19/21 17:00 Resp 26 H 01/19/21 17:00 BP 121/68 01/19/21 17:00 Pulse Ox 95 01/19/21 17:00 COVID-19 Screening Have you, or household traveled for leisure in last 14 days?: No Had IN PERSON contact w/suspected or confirmed C-19 person: No
[2021-01-19 17:47] LABS: Procalcitonin 0.2 ng/mL
[2021-01-19 17:56] LABS: Clarity Cloudy
--- OUTSIDE RECORDS SUMMARY | 2021-01-19 17:57 | XMS_ITS ---
:1950 Author Care Team Providers Name Role Phone CONSUELO SCOTT Primary Care Provider [phone] Allergies Code Code System Name Reaction Severity Status Onset NKDA ? Medications Name Status Start Date Stop Date ? ? albuterol sulfate 2.5 mg/3 mL (0.083 %) solution for nebulizatio n Active ? Not available Inhale 3 mL 3 times a day by nebulization route as needed. Levemir FlexTouch U-100 Insulin 100 unit/mL (3 mL) subcutaneous pen Active ? Not available Inject by subcutaneous route. losartan 25 mg tablet Active ? Not availa ble Take 2 tablets every day by oral route. Proair Digihaler 90 mcg/actuation aerosol powder breath act, sen sor Active ? Not available Inhale 2 puffs every 4 hours by inhalation route as needed. Problems Name Status Onset Date Source ? Thyroid Nodule Active 09/29/2019 ? Diabetes Mellitus Active 09/29/2019 ? Hyperlipidemia Active 09/29/2019 ? 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 Visual Disturbance Active 09/29/2019 ? Hypertensive Disorder Active 09/29/2019 ? Intermittent Claudication Active 09/29/2019 ? Asthma Active 09/29/2019 ? Shoulder Pain Active 09/29/2019 ? Sleep Disorder Active 09/29/2019 ? Anasarca Active 09/29/2019 ? History of Epilepsy Active 09/29/2019 ? Body Mass Index 40+ - Severely Obese Active 09/29/2019 ? Procedures None recorded. Results Lab Results None recorded. Past Encounters 10/09/2019 Snoring; Poor Sleep Pattern; Cramp in Lo wer Limb Associated with Sleep Elizabeth Thorpe MD, Board Certified Sleep Ph ysician: [address] [place] [address] [address], [place] [address], Ph. Social History None recorded. Vaccine List None recorded. Plan of Care Patient Instructions 1. We discussed signs and symptoms you are exhibiting that may be due to Obstructive Sleep Apnea or other sleep disorders. We went over sleep conditions that I suspect you may have that will benefit from further evaluation. The next step is to diagnose your sleep disorder through sleep study testing. We will get permission from your insuran ce to do the sleep study. Call us back in 2 to 3 weeks if you do not get a call from us about scheduling your sleep study. Bring all your home medications to the sleep study including any sleep aids. If you have further concerns on falling asleep for the sleep study, we do have Ambien 5 to 10 mg to be used as needed. Perera marquez, please note you should make arrange ments for a ride home in case you get morning drowsiness from taking sleep aid. Please call [facility] if you ar e not able to make it to your sleep study 2. For the leg cramps, take magnesium (h igh absorption form) 100 to 200mg twice daily. Reminders Provider Appointments None recorded. ? ? Lab None recorded. ? ? Referral None recorded. ? ? Procedures None recorded. ? ? Surgeries None recorded. ? ? Imaging None recorded. ? ? Vitals Height Weight BMI Blood Pressure 167.64 cm 132.09 kg 47 kg/m2 154/60 mm[Hg]
[2021-01-19 18:19] LABS: COVID-19 PCR Negative (Negative)
[2021-01-19 18:45] LABS: Mononuclear Cells 14 %; Polynuclear Cells 86 %
[2021-01-19] MEDS: Apixaban 5 MG TAB PO (21:25)
[2021-01-19] MEDS: Albuterol HFA 8 GM 60 PUFF INH IH (21:26)
[2021-01-19 22:00] LABS: Uric Acid 6.5 mg/dL (3.5-7.2)
[2021-01-19] MEDS: Acetaminophen 325 MG TAB 650 MG PO (22:02)
[2021-01-20] MEDS: Bisacodyl 10 MG SUPP PR
[2021-01-20] MEDS: Albuterol HFA 8 GM 60 PUFF INH IH ×2 (00:24→05:56)
[2021-01-20] MEDS: CEFEPIME 2 GM in Normal Saline 100 ML IVPB ×3 (00:25→20:50)
[2021-01-20] MEDS: Normal Saline Flush 10 ML SYR IVP ×4 (00:26→14:34)
[2021-01-20 07:09] LABS: Abs Immature Grans 0.06 10^3/uL (0.0-0.06); Absolute Basophil Count 0.03 10^3/uL (0.0-0.2); Absolute Lymphocyte Count 1.34 10^3/uL (1.2-3.4); Absolute Monocyte Count 1.27 10^3/uL (0.1-0.8); Absolute Neutrophil Count 10.05 10^3/uL (1.2-6.7); Basophils % 0.2; Eosinophils % 0.8; HCT 31.5 % (40.0-50.0); HGB 9.8 g/dL (13.5-17.5); Immature Grans % 0.5; Lymphocytes % 10.4; MCH 24.7 pg (27.0-33.0); MCHC 31.1 % (32.0-36.0); MCV 79.3 fL (80-95); MPV 10.6 fL (8.0-11.0); Monocytes % 9.9; Neutrophils % 78.2; Nucleated RBC 0 %; Platelet Count 234 10^3/uL (130-400); RBC 3.97 10^6/uL (4.36-5.78); RDW 16.5 % (11.8-14.1); RDW-SD 48.5 fL; WBC 12.85 10^3/uL (4.4-10.8)
[2021-01-20 07:19] LABS: Anion Gap 6.3 mmol/L (3-11); BUN 26 mg/dL (7-18); CO2 27.7 mmol/L (21.0-32.0); CREATININE 1.6 mg/dL (0.70-1.30); Chloride 101 mmol/L (98-107); Glucose 116 mg/dL (74-106); Magnesium 1.7 mg/dL (1.8-2.4); Potassium 4.4 mmol/L (3.5-5.1); Sodium 135 mmol/L (136-145); Uric Acid 6.7 mg/dL (3.5-7.2)
--- NOTE | 2021-01-20 07:30 | DI.US_ITS ---
Exam(s) US RENAL EXAM: US RENAL CLINICAL HISTORY: UTI recurrent. TECHNIQUE: Thorpe scale, color and spectral Doppler were used. COMPARISON: CT CT CHEST/ABD/PEL W from 02/21/[address] CHEST/ABD/PEL W from 12/16/2020 FINDINGS: Renal size in cm: Right: 12.5. Left: 12.1. Echogenicity: Normal. Hydronephrosis: No. Cyst or mass: There are several bilateral renal cysts. They appear simple. They are unchanged yung red to the CT scan from 12/16/2020. The largest on the right measures 0.8 x 0.7 x 0.9 cm. The largest on the left measures 3.2 x 3.3 x 3.8 cm. They have a comparable appearance when compared to the CT scan dated 02/21/2020. Nephrolithiasis: No. Other findings: Sludge is seen within the gallbladder. Echogenic foci are seen within the sludge whi ch may represent small stones. Note is made of a 3.4 x 2.6 x 3.6 cm lobulated simple renal cyst. Th is is present on the CT scan from 01/12/2021. Bladder:Incompletely distended with a Ledbetter catheter in place. Ureteral jets: Right: Visualized and unremarkable. Left: Visualized and unremarkable. Prevoid vol:27 cc Postvoid vol:18.2 cc (with Ledbetter catheter unclamped.) Prostate: 59.1 cc Renal color flow: Symmetric and within normal limits. IMPRESSION: 1. No evidence of hydronephrosis. 2. Stable bilateral renal cysts. 3. Stable hepatic cyst. 4. Enlarged prostate gland. 5. Gallbladder sludge with possible gallbladder stones. DATA REPOSITORY:
--- NOTE | 2021-01-20 08:15 | W.ORTHOCONSU ---
Date of service: 01/20/21 Time of Service: 08:15 History of Present Illness History of Present Illness Chief Complaint: Right Wrist Pain and Ambulatory Dysfunction Narrative: Ed is a 70-year-old who has multiple medical comorbidities. Most recently he had a thoracotomy with a partial lobe resection on March 11 with preceding 4 rounds of chemotherapy. He was deemed to be free of cancer at that time. He has issues with chronic indwelling catheter gets changed weekly and has a history of having recurrent UTIs from this. He takes antibiotics with the changes of the catheters which usually works. He actually required admission for severe UTI after the previous catheter changes. On this particular instance he reports that on he started having some pain, swelling, and mild redness to the right wrist. This progressed to the point he was unable to place any weight on it and ambulate with his walker. He was then brought into the emergency department yesterday, January 19, for further evaluation. He was found to have a significantly elevated ESR and CRP as well as a mildly elevated white cell count. His urinalysis was relatively benign, negative for nitrates and only trace leukocyte esterase. Given the pain localized to the right wrist an aspiration of the right wrist was performed by Dr. Zuniga. This revealed 39,748 white blood cells, 86% polymorphonuclear cells. He was started on broad-spectrum antibiotics given his history. This was not sent for crystal analysis. I was consulted for the concern of a right septic wrist. Initial gram stain is positive only for white blood cells and no bacteria. Currently reports that the right wrist pain is better than it was yesterday. He denies any worsening erythema about the right hand. When I ask about his difficulty with walking he is quite unclear on the exact source of this limitation. He uses a walker at baseline and is working on try and improve his mobility. He feels he was unable to bear weight on the right hand but also reports having pain in both shoulders, unsure which one it was that was the worst. 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 He also reports some discomfort in his legs when he tries to stand but is really unclear on these details. He also feels that both legs and both arms are getting weaker. He also reports a burning type sensation in the upper extremities more than lower extremities. Consults Consult date: 01/19/21 Requesting physician: Kristy Bartholomew Consult Reason Right Wrist Swelling/Pain Assessment and Plan Assessment and plan (1) Right wrist effusion: Status: Acute Assessment and plan: Ed is a 70-year-old who presented with worsening right wrist pain and swelling. There was reported erythema but I see none today. The aspirate does show a high cell count of 37,000 but that does not necessarily make it septic. The sample was not sent for crystal analysis. The initial cultures are negative per my review with the microbiologist. However, we will need to continue to follow these. He has been on off and on antibiotics for his chronic UTI and this may block the development of a growth on the culture. However, having a septic wrist would cause exquisite right wrist pain. He does not necessarily have that. I am able to passively move the wrist with some discomfort and pain. However, it does not cause excruciating pain. He seems to hurt more when he tries to elevate and forward flex his bilateral shoulders, right worse than left. Interestingly, he has substantial weakness of both extremities which he finds is new. He has pain in his neck and his back when I perform any examination this seems to be a primary complaint of his. Given the acute onset of weakness and his elevated CRP and sed rate I think we must consider epidural abscess as an option. He does not have the findings to suggest it truly is a cord compression symptom from the epidural abscess but this could cause pain within the spine and upper extremity weakness. The other option is he is having some type systemic inflammatory response. Whether this is paraneoplastic or not still back is a question that this is inflammatory in nature. What I cannot seem to understand is that the wrist pain causes inability to walk. It would cause difficulties with using a walker but I do not think that explains his inability to walk. It also does not explain the pain in his shoulders or in his neck or in the lower extremities. I still not sure what is going on. At this point I would not move very quickly but continue to explore potential options. I will follow the cultures of the right wrist. Has been aspirated once and if it does turn positive we could talk about doing serial aspirations versus a short washout in the operating room. However, I do have concerns about proceeding the operating room as I do not know if he would be an appropriate candidate for anesthesia and [facility]. He also is on Eliquis which complicates matters. My recommendation at this point would be to obtain MRI of the spine, cervical spine if not the entire spine. This would be to illuminate any potential epidural abscess. If this is negative then I would follow conservatively and even consider the use of steroid dose to see if this improves his symptoms as a somewhat diagnostic and therapeutic treatment. I discussed this with Ed. He also seems concerned about the increasing weakness of his arms. I also communicated plan with Kristy Bartholomew. (2) Bilateral arm weakness: Status: Acute Review of Systems All systems reviewed & are unremarkable except as noted in HPI and below PFSH Medical History CKD (chronic kidney disease) DVT (deep venous thrombosis) S/p IVC filter Hx of traumatic brain injury Insulin dependent diabetes mellitus Lung cancer Multinodular thyroid Urinary retention UTI (urinary tract infection) Surgical History History of lobectomy of lung Social History Smoking/Tobacco Use Status: Former Tobacco Use Smoking risk assessment performed?: Yes Alcohol Intake: current Alcohol Intake frequency: holidays/special occasions only Drug use: Occasionally Substance use type: marijuana Details: pt states he has medical marijuana Do you feel safe at home: Yes Do you feel safe in your relationship?: Yes Exam Narrative Exam Narrative: Resting in the exam bed. There is a noticeable tremor about both upper extremities, worse on the left. There is no significant muscular wasting seen in either upper extremity or bilateral lower extremities. Examination is limited. He reports pain on any attempted palpation of the cervical spine. He has pain within the right shoulder in the neck with any rotation towards the right side, not as much towards the left. It does not necessarily recreate any radicular symptoms. He reports generalized pain throughout all of his upper extremities, right worse than left. By get him to relax and can have him not have a tremor, he does not seem to have significant passive pain with mobility of the right shoulder. However, he is notably weak, only antigravity forward flexion and abduction of the right shoulder. He also has 4- out of 5 strength to elbow extension and elbow flexion bilaterally and globally about the same within the hand, no better than 4- out of 5. There is some mild swelling about the right wrist. May be some mild warmth but no appreciable erythema. When I get him to relax, I am able to passively move the wrist with what seems to be minimal pain. However, he has significant pain with any active range of motion or at the extremes of motion. He tolerates the motion arc of about 30 degrees of extension and 20 degrees of flexion without any significant pain. He endorses full sensation from C5-T1 although he states it feels different. Palpable radial pulse bilaterally. No appreciable hyperreflexia of the upper extremities. Negative Mile test. Evaluation of bilateral lower extremity shows some chronic venous stasis change of the legs but no significant edema. He is able to lift the leg off the bed but does so with significant difficulty. When elevating the right leg he complains of pain within the low back and the neck. He is able demonstrate decent strength, 4+ out of 5 throughout the lower extremities, L3-S1. Likewise he endorses full sensation from L3-S1 except slightly diminished towards the feet. No pain with hip internal and external rotation. He does have at least 4-5 beats of clonus on the right side. When performing this test he complains of pain from his low back all the way into his neck. He reports generalized discomfort with all motor group testing of the lower extremities. Const General: cooperative and no acute distress Orientation: alert and awake Results Last Vital Signs Temp 36.5 C 01/19/21 23:54 Pulse 77 01/19/21 23:54 Resp 18 01/19/21 23:54 BP 119/75 01/19/21 23:54 Pulse Ox 99 01/19/21 23:54 Labs Result diagrams: 01/20/21 06:44 01/20/21 06:44 Labs: Laboratory Results - last 24 hr 01/19/21 01/19/21 01/19/21 14:18 14:18 14:18 WBC 14.79 H RBC 4.52 Hgb 11.1 L Hct 35.3 L MCV 78.1 L MCH 24.6 L MCHC 31.4 L RDW 16.6 H Plt Count 268 MPV 10.1 Immature Gran % 0.3 Neutrophils % 84.3 Lymphocytes % 5.9 Monocytes % 9.3 Eosinophils % 0.1 Basophils % 0.1 Nucleated RBC % 0 Absolute Neutrophils 12.47 H Absolute Lymphocytes 0.87 L Absolute Monocytes 1.38 H Absolute Eosinophils 0.01 Absolute Basophils 0.01 ESR VBG Lactate 1.2 Sodium 134 L Potassium 4.0 Chloride 98 Carbon Dioxide 24.3 Anion Gap 11.7 H BUN 19 H Creatinine 1.4 H Estimated GFR/1.73 m2 49.82 Glucose 133 H Uric Acid Calcium 9.3 Magnesium Total Bilirubin 1.4 H AST 11 L ALT 16 Alkaline Phosphatase 88 C-Reactive Protein Total Protein 8.2 Albumin 2.8 L Procalcitonin Urine Color Urine Clarity Urine pH Ur Specific [place] Urine Protein Urine Ketones Urine Blood Urine Nitrite Urine Bilirubin Urine Urobilinogen Ur Leukocyte Esterase Urine RBC Urine WBC Ur Epithelial Cells Urine Crystals Urine Bacteria Urine Casts Urine Mucus Ur Culture Indicated? Urine Glucose Fluid Source Fluid Color Fluid Clarity Fluid WBC Fld Polynuclear WBCs % Fluid Mononuclear Cell COVID-19 Source SARS-CoV-2 (PCR) 01/19/21 01/19/21 01/19/21 14:18 14:18 14:18 WBC RBC Hgb Hct MCV MCH MCHC RDW Plt Count MPV Immature Gran % Neutrophils % Lymphocytes % Monocytes % Eosinophils % Basophils % Nucleated RBC % Absolute Neutrophils Absolute Lymphocytes Absolute Monocytes Absolute Eosinophils Absolute Basophils ESR 117 H VBG Lactate Sodium Potassium Chloride Carbon Dioxide Anion Gap BUN Creatinine Estimated GFR/1.73 m2 Glucose Uric Acid Calcium Magnesium Total Bilirubin AST ALT Alkaline Phosphatase C-Reactive Protein 18.14 H Total Protein Albumin Procalcitonin 0.2 Urine Color Urine Clarity Urine pH Ur Specific [place] Urine Protein Urine Ketones Urine Blood Urine Nitrite Urine Bilirubin Urine Urobilinogen Ur Leukocyte Esterase Urine RBC Urine WBC Ur Epithelial Cells Urine Crystals Urine Bacteria Urine Casts Urine Mucus Ur Culture Indicated? Urine Glucose Fluid Source Fluid Color Fluid Clarity Fluid WBC Fld Polynuclear WBCs % Fluid Mononuclear Cell COVID-19 Source SARS-CoV-2 (PCR) 01/19/21 01/19/21 01/19/21 14:18 14:25 17:03 WBC RBC Hgb Hct MCV MCH MCHC RDW Plt Count MPV Immature Gran % Neutrophils % Lymphocytes % Monocytes % Eosinophils % Basophils % Nucleated RBC % Absolute Neutrophils Absolute Lymphocytes Absolute Monocytes Absolute Eosinophils Absolute Basophils ESR VBG Lactate Sodium Potassium Chloride Carbon Dioxide Anion Gap BUN Creatinine Estimated GFR/1.73 m2 Glucose Uric Acid 6.5 Calcium Magnesium Total Bilirubin AST ALT Alkaline Phosphatase C-Reactive Protein Total Protein Albumin Procalcitonin Urine Color Yellow Urine Clarity Clear Urine pH 5.5 Ur Specific [place] >= 1.030 H Urine Protein 30 H Urine Ketones Negative Urine Blood Small H Urine Nitrite Negative Urine Bilirubin Negative Urine Urobilinogen 0.2 Ur Leukocyte Esterase Trace H Urine RBC 5-10 H Urine WBC 3-5 Ur Epithelial Cells Rare Urine Crystals Few amorphous Urine Bacteria Moderate Urine Casts Negative Urine Mucus Trace Ur Culture Indicated? Yes Urine Glucose Negative Fluid Source Fluid Color Fluid Clarity Fluid WBC Fld Polynuclear WBCs % Fluid Mononuclear Cell COVID-19 Source Nasopharyx SARS-CoV-2 (PCR) Negative 01/19/21 01/20/21 01/20/21 17:10 06:44 06:44 WBC 12.85 H RBC 3.97 L Hgb 9.8 L Hct 31.5 L MCV 79.3 L MCH 24.7 L MCHC 31.1 L RDW 16.5 H Plt Count 234 MPV 10.6 Immature Gran % 0.5 Neutrophils % 78.2 Lymphocytes % 10.4 Monocytes % 9.9 Eosinophils % 0.8 Basophils % 0.2 Nucleated RBC % 0 Absolute Neutrophils 10.05 H Absolute Lymphocytes 1.34 Absolute Monocytes 1.27 H Absolute Eosinophils 0.10 Absolute Basophils 0.03 ESR VBG Lactate Sodium 135 L Potassium 4.4 Chloride 101 Carbon Dioxide 27.7 Anion Gap 6.3 BUN 26 H Creatinine 1.6 H Estimated GFR/1.73 m2 42.70 Glucose 116 H Uric Acid 6.7 Calcium 9.0 Magnesium 1.7 L Total Bilirubin AST ALT Alkaline Phosphatase C-Reactive Protein Total Protein Albumin Procalcitonin Urine Color Urine Clarity Urine pH Ur Specific [place] Urine Protein Urine Ketones Urine Blood Urine Nitrite Urine Bilirubin Urine Urobilinogen Ur Leukocyte Esterase Urine RBC Urine WBC Ur Epithelial Cells Urine Crystals Urine Bacteria Urine Casts Urine Mucus Ur Culture Indicated? Urine Glucose Fluid Source R wrist Fluid Color Red Fluid Clarity Cloudy Fluid WBC [id number] Fld Polynuclear WBCs % 86 Fluid Mononuclear Cell 14 COVID-19 Source SARS-CoV-2 (PCR) Imaging Imaging Studies: X-ray of the right wrist was reviewed. This does not show any significant degenerative change. No suspicious lesions.
[2021-01-20 08:40] VITALS: BP 147/88; PULSE 86; RESP 17; TEMP 36.8; O2SAT 97
[2021-01-20] MEDS: predniSONE 20 MG TAB 40 MG PO (08:50)
[2021-01-20] MEDS: Omeprazole 20 MG CAPCR PO (08:50)
[2021-01-20] MEDS: Apixaban 5 MG TAB PO ×2 (08:50→20:49)
[2021-01-20] MEDS: MORPHine 2 MG/ML SYR IVP (09:20)
--- NOTE | 2021-01-20 10:00 | PT.INIE ---
Date of service: 01/20/21 Time of Service: 10:00 PT Notes Visit Reasons: UROSEPSIS Physical Therapy Inpatient Initial Evaluation Date: 01/20/2021 Referring Doctor: Kristy Bartholomew NP PT Orders: PT CONSULT: Weakness r/t UTI, right UE weakness/pain r/t DJD, history TBI, recent RU lobectomy Precautions: Fall. Standard. Activity as tolerated. Non-ambulatory, bed-bound. Patient Profile/Admitting Diagnosis: Andres is a 70-year-old male with past medical history significant for traumatic brain injury and history of lung carcinoma status post right upper lobe lobectomy in August 2020 who presented to the ED on 12/16/2020 with mild confusion, increasing weakness, and fever. Patient is diagnosed with urinary tract infection. He is on anticouagulation due to previously diagnosed DVT of the right LE. PMHX: Medical History CKD (chronic kidney disease) DVT (deep venous thrombosis) S/p IVC filter Hx of traumatic brain injury Insulin dependent diabetes mellitus Lung cancer Multinodular thyroid UTI (urinary tract infection) Surgical History History of lobectomy of lung Social History/Home Situation: Lives with in a private home with 3 steps to enter with one rail. Receives PT/OT/nursing 2x/week. 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 has been his main healthcare agent. Per Nurse Aggarwal, has told her that patient is bed-bound and rarely stands up. He uses the bed lui for all toileting tasks. Per patient, he has not walked for quite a while now and he uses a stand assist device to for bed mobility and transfer. Equipment Owned/DME: Hospital bed, overhead trapeze, transfer chair, stand assist device, bedpan Subjective: Patient reports pain in his left shoulder aggravated by movement. Indicates that he only stands up if he needs to with the extensive assistance of his or his caregivers. He states that he has not walked for quite a while and having had four courses of chemotherapy since summer of last year have not helped with his mobility. Verbalized that he got all tired out from transport to and from x-ray this morning. Emphasized that at home, he is mostly just in bed and sits up 1-2 x day only for meals if he is in the mood to do it. Refuses to sit on the bedside recliner. Objective: General Observation: IV in R UE. Ledbetter catheter in place. Resting and intentional tremors noted. Mental Status: Alert and oriented as to person and place. Able to pay attention, focus, and respond appropriately. Pain: 6/10 in left and right shoulder as well as on the R wrist ROM: Right Upper Extremity: Able to reach opposite shoulder but unable to bring hand to mouth, to opposite hip and to opposite knee. Opening and closing of hand WFL. Left Upper Extremity: Able to reach opposite shoulder, to opposite hip and to opposite knee. Opening and closing of hand WFL. Right Lower Extremity: Hip flexion unable. Hip abduction unable. Hip ER/IR unable. Knee flexion unable. Knee extension 0 degrees. Ankle dorsiflexion/eversion to neutral only. Ankle plantarflexion/inversion WFL. Left Lower Extremity: Hip flexion to only about 30 degrees. Hip abduction to about 10 degrees. Hip ER/IR WFL. Knee flexion to only about 30 degrees. Knee extension 30 degrees to 0 degrees. Ankle dorsiflexion to neutral only. Ankle plantarflexion WFL. Strength: Right Upper Extremity: Shoulder flexors 2-/5. Shoulder abductors 2-/5. Shoulder ER 2-/5. Shoulder IR 2-/5. Forearm pronators 3/5. Forearm supinators 3/5. Elbow flexors 4/5. Elbow extensors 4/5. Diamond Sizer strong. Left Upper Extremity: Shoulder flexors 2-/5. Shoulder abductors 2-/5. Shoulder ER 2-/5. Shoulder IR 2-/5. Forearm pronators 3/5. Forearm supinators 3/5. Elbow flexors 4/5. Elbow extensors 4/5. Diamond Sizer strong. Right Lower Extremity: Hip flexors 2-/5. Hip abductors 2-/5. Hip external rotators 2-/5. Hip internal rotators 2-/5. Knee flexors 2-/5. Knee extensors 2-/5. Ankle dorsiflexors/evertors 2-/5. Ankle plantarflexors/invertors 2-/5. Left Lower Extremity: Hip flexors 2-/5. Hip abductors 2-/5. Hip external rotators 2-/5. Hip internal rotators 2-/5. Knee flexors 2-/5. Knee extensors 2-/5. Ankle dorsiflexors/evertors 2-/5. Ankle plantarflexors/invertors 2-/5. Bed Mobility/Transfers: Rolling moderate assist of 2 Supine to sit will assess with assist of 2 when gets here Sit to supine will assess with assist of 2 when gets here Sit to stand will assess with assist of 2 when gets here Stand to sit will assess with assist of 2 when gets here Bed to bedside commode will assess with will assess with assist of 2 when gets here Bedside commode to bed will assess with will assess with assist of 2 when gets here Bed to chair will assess with assist of 2 when gets here Chair to bed will assess with assist of 2 when gets here Gait: N/A. Non-ambulatory. Balance: Static Sitting: Unable Dynamic Sitting: Unable Static Standing: Unable Dynamic Standing: Unable Special Tests: Mobility Limitations Standardized Measure [facility] 6 clicks Basic Mobility Inpatient Short Form: Raw Score: 7 CMS Score: 92% deficit Informed Consent/Education: Patient instructed in purpose of PT consult and plan of care. Agreeable to proceed with established PT POC to achieve personal goals, amenable to waiting on arrival of nancy Hooper around 1 pm this afternoon before attempting sitting and standing activities. Assessment: Stress triggers pain all over and increases tremors. Refuses to get out of bed and to sit on edge of bed. Will not have any goals for ambulation but will focus on bed mobility skill progression as well as on increasing standing balance/tolerance to increase safety of transfers. Will also provide recommendations regarding motorized wheelchair benefits. Patient presents with clinical signs and symptoms consistent with current/admitting diagnoses that have resulted to mobility limitations, gait instability, generalized weakness, and impairment of motor control as demonstrated by the following impairment level findings: 1. Decreased strength to B UE/LE major muscle groups R>>L 2. Limited sitting/standing balance and tolerance 3. Muscle spasms on L UE 4. Limitation of joint range of motion in B UE/LE 5. Pain in R shoulder Impairments are contributing to the following functional limitations: 1. Dependent bed mobility skills 2. Increased dependence with transfers 3. Non-ambulatory 4. Increase completion time for mobility ADL performance 5. Increased fall risk 6. Increased risk for skin breakdown 7. Inability to return to prior living environment at this time Patient is assessed as a 71124 high complexity based on the following: History: 70-year-old male with past medical history as indicated above Examination: Demonstrable impairment in strength, balance, and mobility level with underlying impairments and functional limitations as exhibited above as well as deficit score of 77% utilizing the [facility] Mobility Inpatient Short Form Presentation: Evolving Decision Makin high complexity Goals: Goals X1 week 1. Supine-Sit minimal assist using overhead trapeze 2. Sit-Supine minimal assist to B LE 3. Sit-Stand minimal assist and stand by assist of another using STEDY lift 4. Stand-Sit minimal assist and stand by assist of another using STEDY lift 5. Bed-Chair minimal assist and stand by assist of another using STEDY lift 6. Chair-Bed minimal assist and stand by assist of another using STEDY lift 7. Good static and dynamic sitting balance/tolerance Plan of Care/Treatment Plan: 1-2x/day, 7 days/week x 1 week. Plan of care has been reviewed with the COAT JOINER providing the service under Physical Therapy direction. Initiate Physical Therapy intervention for strengthening, bed mobility, transfers, gait, stairs, balance training, and use of assistive device. DISCHARGE RECOMMENDATIONS: Consider use of motorized wheelchair for improved mobility at home. Resume HH PT/OT/nursing services as needed. May benefit from OT services to address ongoing limitation in the R wrist. TREATMENT CODE/TIME: 72402 x 26 minutes beginning at 10:00 AM. Thank you for the opportunity to participate in the care of this patient. Krysten Singh PT, DPT, CLT [facility] [place], [place]
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
--- NOTE | 2021-01-20 10:22 | W.UROLOGYCON ---
Assessment and Plan Assessment and plan (1) Urinary retention: Status: Acute Assessment and plan: It is well-known there is a lower risk of UTI and sepsis in patients who can tolerate intermittent catheterization rather than a chronic indwelling catheter. Since his has expressed an interest in learning how to do CIC for this gentleman, I would think that we could give him a voiding trial while he is here in the hospital and use it as a teaching moment to instruct his on how to do CIC should it be necessary. I will try to coordinate this with my office staff so that they can provide both support and instructions for the patient's . (2) UTI (urinary tract infection): Status: Chronic Qualifiers: Encounter type: initial encounter Indwelling urinary catheter type: indwelling urethral catheter Urinary tract infection type: catheter-associated UTI Qualified Code(s): T83.511A - Infection and inflammatory reaction due to indwelling urethral catheter, initial encounter; N39.0 - Urinary tract infection, site not specified History of Present Illness History of Present Illness Chief Complaint: Urinary retention Narrative: is a 70-year-old gentleman who is currently hospitalized with fevers, bacteriuria and a possible septic joint. He has a history of an indwelling catheter that was placed in August of this year. The catheter was placed after he underwent a right upper lobectomy for lung cancer. At the time the catheter was placed, he had over a liter of urine in his bladder and signs of obstructive uropathy. He was started on Flomax and given multiple voiding trials. The Flomax has been discontinued as it was making him shaky. He was unable to void so the catheter was replaced and is being changed monthly by the visiting nurses. He presented to the ED about 3 days after his last catheter change. He was given Cipro around the time of the catheter change, but he still developed fevers 2 to 3 days after the catheter exchange. He has had imaging studies down at [facility]. Renal ultrasound identified a complex left renal cyst in September 2020. No kidney stones were seen. With his recurrent hospitalizations for febrile illnesses, the patient's is wondering if he might do better with intermittent catheterization. She is at home with him daily and is his primary caregiver. She is willing and able to learn how to do CIC for her . [facility] Medical History CKD (chronic kidney disease) DVT (deep venous thrombosis) S/p IVC filter Hx of traumatic brain injury Insulin dependent diabetes mellitus Lung cancer Multinodular thyroid Urinary retention UTI (urinary tract infection) Surgical History History of lobectomy of lung Social History Smoking/Tobacco Use Status: Former Tobacco Use Smoking risk assessment performed?: Yes Alcohol Intake: current Alcohol Intake frequency: holidays/special occasions only Drug use: Occasionally Substance use type: marijuana Details: pt states he has medical marijuana Do you feel safe at home: Yes Do you feel safe in your relationship?: Yes Exam Narrative Exam Narrative: He does not appear septic or toxic He was recently medicated and is a very poor historian His abdomen is soft with no guarding or rebound tenderness His Ledbetter catheter is draining clear urine I reviewed the CT of the abdomen and pelvis from 01/19/2021 and the renal ultrasound from 01/20/2021. There is no sign of stone or perinephric abscess. His renal cysts are unchanged when compared to films from 2019. Results Last Vital Signs Temp 36.8 C 01/20/21 08:40 Pulse 86 01/20/21 08:40 Resp 17 01/20/21 08:40 BP 147/88 H 01/20/21 08:40 Pulse Ox 97 01/20/21 08:40 Labs Result diagrams: 01/21/21 06:40 01/21/21 06:40 Labs: Laboratory Results - last 24 hr 01/19/21 01/19/21 01/19/21 14:18 14:18 14:18 WBC 14.79 H RBC 4.52 Hgb 11.1 L Hct 35.3 L MCV 78.1 L MCH 24.6 L MCHC 31.4 L RDW 16.6 H Plt Count 268 MPV 10.1 Immature Gran % 0.3 Neutrophils % 84.3 Lymphocytes % 5.9 Monocytes % 9.3 Eosinophils % 0.1 Basophils % 0.1 Nucleated RBC % 0 Absolute Neutrophils 12.47 H Absolute Lymphocytes 0.87 L Absolute Monocytes 1.38 H Absolute Eosinophils 0.01 Absolute Basophils 0.01 ESR VBG Lactate 1.2 Sodium 134 L Potassium 4.0 Chloride 98 Carbon Dioxide 24.3 Anion Gap 11.7 H BUN 19 H Creatinine 1.4 H Estimated GFR/1.73 m2 49.82 Glucose 133 H Uric Acid Calcium 9.3 Magnesium Total Bilirubin 1.4 H AST 11 L ALT 16 Alkaline Phosphatase 88 C-Reactive Protein Total Protein 8.2 Albumin 2.8 L Procalcitonin Urine Color Urine Clarity Urine pH Ur Specific [place] Urine Protein Urine Ketones Urine Blood Urine Nitrite Urine Bilirubin Urine Urobilinogen Ur Leukocyte Esterase Urine RBC Urine WBC Ur Epithelial Cells Urine Crystals Urine Bacteria Urine Casts Urine Mucus Ur Culture Indicated? Urine Glucose Fluid Source Fluid Color Fluid Clarity Fluid WBC Fld Polynuclear WBCs % Fluid Mononuclear Cell COVID-19 Source SARS-CoV-2 (PCR) 01/19/21 01/19/21 01/19/21 14:18 14:18 14:18 WBC RBC Hgb Hct MCV MCH MCHC RDW Plt Count MPV Immature Gran % Neutrophils % Lymphocytes % Monocytes % Eosinophils % Basophils % Nucleated RBC % Absolute Neutrophils Absolute Lymphocytes Absolute Monocytes Absolute Eosinophils Absolute Basophils ESR 117 H VBG Lactate Sodium Potassium Chloride Carbon Dioxide Anion Gap BUN Creatinine Estimated GFR/1.73 m2 Glucose Uric Acid Calcium Magnesium Total Bilirubin AST ALT Alkaline Phosphatase C-Reactive Protein 18.14 H Total Protein Albumin Procalcitonin 0.2 Urine Color Urine Clarity Urine pH Ur Specific [place] Urine Protein Urine Ketones Urine Blood Urine Nitrite Urine Bilirubin Urine Urobilinogen Ur Leukocyte Esterase Urine RBC Urine WBC Ur Epithelial Cells Urine Crystals Urine Bacteria Urine Casts Urine Mucus Ur Culture Indicated? Urine Glucose Fluid Source Fluid Color Fluid Clarity Fluid WBC Fld Polynuclear WBCs % Fluid Mononuclear Cell COVID-19 Source SARS-CoV-2 (PCR) 01/19/21 01/19/21 01/19/21 14:18 14:25 17:03 WBC RBC Hgb Hct MCV MCH MCHC RDW Plt Count MPV Immature Gran % Neutrophils % Lymphocytes % Monocytes % Eosinophils % Basophils % Nucleated RBC % Absolute Neutrophils Absolute Lymphocytes Absolute Monocytes Absolute Eosinophils Absolute Basophils ESR VBG Lactate Sodium Potassium Chloride Carbon Dioxide Anion Gap BUN Creatinine Estimated GFR/1.73 m2 Glucose Uric Acid 6.5 Calcium Magnesium Total Bilirubin AST ALT Alkaline Phosphatase C-Reactive Protein Total Protein Albumin Procalcitonin Urine Color Yellow Urine Clarity Clear Urine pH 5.5 Ur Specific [place] >= 1.030 H Urine Protein 30 H Urine Ketones Negative Urine Blood Small H Urine Nitrite Negative Urine Bilirubin Negative Urine Urobilinogen 0.2 Ur Leukocyte Esterase Trace H Urine RBC 5-10 H Urine WBC 3-5 Ur Epithelial Cells Rare Urine Crystals Few amorphous Urine Bacteria Moderate Urine Casts Negative Urine Mucus Trace Ur Culture Indicated? Yes Urine Glucose Negative Fluid Source Fluid Color Fluid Clarity Fluid WBC Fld Polynuclear WBCs % Fluid Mononuclear Cell COVID-19 Source Nasopharyx SARS-CoV-2 (PCR) Negative 01/19/21 01/20/21 01/20/21 17:10 06:44 06:44 WBC 12.85 H RBC 3.97 L Hgb 9.8 L Hct 31.5 L MCV 79.3 L MCH 24.7 L MCHC 31.1 L RDW 16.5 H Plt Count 234 MPV 10.6 Immature Gran % 0.5 Neutrophils % 78.2 Lymphocytes % 10.4 Monocytes % 9.9 Eosinophils % 0.8 Basophils % 0.2 Nucleated RBC % 0 Absolute Neutrophils 10.05 H Absolute Lymphocytes 1.34 Absolute Monocytes 1.27 H Absolute Eosinophils 0.10 Absolute Basophils 0.03 ESR VBG Lactate Sodium 135 L Potassium 4.4 Chloride 101 Carbon Dioxide 27.7 Anion Gap 6.3 BUN 26 H Creatinine 1.6 H Estimated GFR/1.73 m2 42.70 Glucose 116 H Uric Acid 6.7 Calcium 9.0 Magnesium 1.7 L Total Bilirubin AST ALT Alkaline Phosphatase C-Reactive Protein Total Protein Albumin Procalcitonin Urine Color Urine Clarity Urine pH Ur Specific [place] Urine Protein Urine Ketones Urine Blood Urine Nitrite Urine Bilirubin Urine Urobilinogen Ur Leukocyte Esterase Urine RBC Urine WBC Ur Epithelial Cells Urine Crystals Urine Bacteria Urine Casts Urine Mucus Ur Culture Indicated? Urine Glucose Fluid Source R wrist Fluid Color Red Fluid Clarity Cloudy Fluid WBC 89133 Fld Polynuclear WBCs % 86 Fluid Mononuclear Cell 14 COVID-19 Source SARS-CoV-2 (PCR)
[2021-01-20] MEDS: Lidocaine 5% Patch 2 PATCH TP (10:47)
[2021-01-20] MEDS: Magnesium Oxide 400 MG TAB PO (10:47)
[2021-01-20] MEDS: Normal Saline 1,000 ML 150 ML IV ×2 (11:36→23:17)
[2021-01-20] MEDS: Acetaminophen 325 MG TAB 650 MG PO (11:50)
[2021-01-20] MEDS: oxyCODONE 10 MG TAB PO (11:50)
[2021-01-20] MEDS: diazePAM 10 MG/2 ML SYR 5 MG IVP (13:30)
--- NOTE | 2021-01-20 14:07 | W.INDIABCONS ---
Date of service: 01/20/21 Time of Service: 14:07 Diabetes Inpatient Consult DESCRIPTION/ASSESSMENT: 70 year old male admitted with urosepsis with hx of IDDM, lung Ca s/p recent lobectomy, CKD, hx of TBI, non ambulatory. BMI indicates class 2 obesity. 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 Home Dm meds: levem[place] 25 u BID. Blood sugars while in house in good control. No recent A1C available. Following diabetic diet with varied intake (25-75% of meals). Did not want further diabetes education at this time. INTERVENTION: Continue current meal plan PLAN: will follow up prn. Time Spent in Nutritional Counseling and Treatment: 5
[2021-01-20] MEDS: Gadoterate meglumine 20 ML VIAL IVP (14:34)
--- NOTE | 2021-01-20 15:15 | DI.MRI_ITS ---
Exam(s) MR THORACIC SPINE WO/W EXAM: MR THORACIC SPINE WO/W CLINICAL HISTORY: rule out spinal abscess. TECHNIQUE: Multiplanar multisequence MRI of the Thoracic spine was performed. CONTRAST MATERIAL: IV Contrast: 20 mL of Dotarem contrast administered. COMPARISON: CT CT CHEST PE ABD PELVIS W from 01/19/2021 MR MR CERVICAL SPINE WO/W from 01/20/2021 FINDINGS: Bones: The vertebral body heights are well maintained. Alignment is satisfactory. The signal characte ristics are unremarkable. There is again seen a partial resection of the right 5th rib. No abnormal enhancement of the thoracic spine. Cord: The thoracic cord is normal size and signal intensity. No intrinsic cord lesion is present. Discs: No disc herniation or bulge is present. No significant central spinal canal or neural foramina l stenosis. Soft tissues: There is a right pleural effusion. There is no evidence of suspicious enhancement. No evidence of an epidural abscess. IMPRESSION: No evidence of a spinal abscess. DATA REPOSITORY:
--- NOTE | 2021-01-20 15:15 | DI.MRI_ITS ---
Exam(s) MR CERVICAL SPINE WO/W EXAM: MR CERVICAL SPINE WO/W CLINICAL HISTORY: r/o epidural abscess TECHNIQUE: Multiplanar multisequence MRI of the cervical spine was performed. CONTRAST MATERIAL: IV Contrast: 20 mL ML of Dotarem contrast administered. COMPARISON: No exams were available for comparison FINDINGS: BONES: Vertebral body heights are maintained. Intervertebral disc spaces are normal. Alignment is nor mal. Bone marrow signal intensity is within normal limits. No significant central spinal canal steno sis is seen. Multilevel neural foraminal stenosis is present secondary to degenerative disease. CERVICAL CORD: Craniovertebral junction is unremarkable. The cervical cord is normal size and signal intensity. No lesion is present. SOFT TISSUES: Unremarkable. ENHANCEMENT: No suspicious enhancement identified. No evidence of an epidural abscess. IMPRESSION: No evidence of an epidural abscess. DATA REPOSITORY:
--- NOTE | 2021-01-20 15:15 | DI.MRI_ITS ---
Exam(s) MR LUMBAR SPINE WO/W EXAM: MR LUMBAR SPINE WO/W CLINICAL HISTORY: question epidural abscess. TECHNIQUE: Multiplanar multisequence MRI of the Lumbar Spine was performed. CONTRAST MATERIAL: IV Contrast: 20 mL of Dotarem contrast administered. COMPARISON: No exams were available for comparison FINDINGS: Bones: The last intervertebral disc space is designated the L5/S1 level for the numbering purpose of this examination. The vertebral body heights are well maintained. Alignment is satisfactory. There i s an area in the left aspect of the L1 vertebral body which shows decreased signal on both the T1 and T2 weighted images. There is no enhancement following contrast administration. There is a hemangio ma or fatty rest in the L5 vertebral body. There is no evidence of an epidural fluid collection or abscess. Cord: The conus tip ends at the L1 level. It is of normal size and signal intensity. T12-L1: No disc herniations or bulges are present. No central spinal canal or neural foraminal stenos is. L1-2: No disc herniations or bulges are present. No central spinal canal or neural foraminal stenosis . L2-3: There is a mild diffuse disc bulge. No significant central spinal canal stenosis is seen. No significant neural foraminal stenosis is present. L3-4: There is a mild diffuse disc bulge. This in conjunction with the degenerative changes of the f acets and ligamentum flavum hypertrophy causes mild narrowing of the central spinal canal. There is mild bilateral neural foraminal stenosis. L4-5: There is a mild diffuse disc bulge. There are hypertrophic changes of the facets. No signific ant central spinal canal stenosis is seen. There is mild bilateral neural foraminal stenosis. L5-S1: There is mild prominence of the osteophyte disc complex. Degenerative changes of the facets a re noted. There is moderate bilateral neural foraminal stenosis. No significant central spinal ronald l stenosis. Soft tissues: The visualized SI joints and sacrum are well maintained. The paraspinal soft tissues ar e unremarkable. There is no evidence of suspicious enhancement. IMPRESSION: 1. Multilevel degenerative changes in the lumbar spine resulting in central spinal canal neural kishore inal stenosis. 2. No evidence of an epidural abscess or abnormal enhancement. 3. Hypointense lesion in the L1 vertebral body. Bone scan may be obtained for further evaluation. DATA REPOSITORY:
[2021-01-20 15:38] VITALS: BP 114/71; PULSE 85; RESP 19; TEMP 38; O2SAT 95
[2021-01-20] MEDS: VANCOMYCIN/WATER (PEG) 1.25 GM/250 ML BAG IV (16:24)
[2021-01-20 20:25] VITALS: TEMP 35.8
--- NOTE | 2021-01-20 20:43 | PGE_ITS ---
Date of Service Date of service: 01/20/21 Time of Service: 17:30 Assessment and Plan Assessment and plan (1) Septic joint of right wrist: Start date: 01/20/21 Start time: 16:38 Status: Suspected Assessment and plan: Aspiration of wrist WBC fluid 22769, fld, poly nuclear wbc 86, Dr. Washington consulted, not convinced this is septic joint at this time as he is able to move his wrist. will monitor cultures. Uric acid r/o for gout. within normal limits He does have CRP of 18 with ESR 117 Proacl 0.2 day 2 vancomycin and cefepime. will also place on steroid burst for 5 days Qualifiers: Septic arthritis organism: due to unspecified organism Qualified Code(s): M00.9 - Pyogenic arthritis, unspecified (2) UTI (urinary tract infection): Start date: 01/20/21 Start time: 16:39 Status: Chronic Assessment and plan: Urology evaluated patient. Voiding trial for tomorrow. If he fails they will discuss self cath Blood cultures pending urine cx pending Qualifiers: Encounter type: initial encounter Indwelling urinary catheter type: indwelling urethral catheter Urinary tract infection type: catheter-associated UTI Qualified Code(s): T83.511A - Infection and inflammatory reaction due to indwelling urethral catheter, initial encounter; N39.0 - Urinary tract infection, site not specified (3) Fever: Start date: 01/20/21 Start time: 16:41 Status: Acute Assessment and plan: Suspected sources UTI, septic joint though unlikely, concern for abscess Will r/o with MRI Schedule tylenol and roxicodone for pain, in addition to morphine for break through CXR negative Qualifiers: Fever type: unspecified Qualified Code(s): R50.9 - Fever, unspecified (4) CKD (chronic kidney disease): Start date: 01/20/21 Start time: 16:43 Status: Chronic Assessment and plan: creatinine increased in addition to getting contrast will give IVF Qualifiers: Chronic kidney disease stage: stage 3 (moderate) Chronic kidney disease stage 3 subtype: unspecified whether 3a or 3b Qualified Code(s): N18.30 - Chronic kidney disease, stage 3 unspecified (5) Insulin dependent diabetes mellitus: Start date: 01/20/21 Start time: 16:44 Status: Chronic Assessment and plan: blood sugars today are climbing likely in setting of steroid burst, monitor and increase sliding scale as needed Continue levemir 25 units BID Carb diet will be on achs fingersticks and moderate sliding scale A1C 5.9 (6) History of lobectomy of lung: Start date: 01/20/21 Start time: 16:44 Status: Chronic Assessment and plan: Sep 11 patient after receiving four round chemo had thoracotamy with right upper lobectomy now not showing any signs of cancer per [facility] and having 6 months visits with oncology no post radiation or chemo needed. (7) Lung cancer: Start date: 01/20/21 Start time: 16:46 Status: Chronic Assessment and plan: as above Qualifiers: Laterality: right Lung location: upper lobe of lung Qualified Code(s): C34.11 - Malignant neoplasm of upper lobe, right bronchus or lung (8) Palliative care patient: Start date: 01/20/21 Start time: 16:47 Status: Acute Assessment and plan: per evaluation note: 70 year old man with recent history of lung cancer, s/p lobectomy, DM, TBI and now sepsis. We discussed goals of care. He wishes to remain a FULL CODE He has diabetes. recommend a more recent A1c as its been several months and he has had many events which may alter BS palliative will continue to follow (9) Urinary retention: Start date: 01/20/21 Start time: 16:48 Status: Acute Assessment and plan: followed by Dr Esposito indwelling saeed catheter as above (10) DVT (deep venous thrombosis): Start date: 01/20/21 Start time: 16:47 Status: Chronic Assessment and plan: Found while in [facility] was placed on eliquis with IVC filter continue eliquis (11) Discharge planning issues: Start date: 01/20/21 Start time: 16:48 Status: Acute Assessment and plan: Will have PT/OT, palliative evaluate patient and decided snif vs home as he is having weakness. discussed with dr. Altamirano. Subjective Subjective Patient reports: feels better Interval history since last seen: Lying in bed with at bedside. He did have MRI today to r/o epidural abscess. Given low dose valium for MRI. Per this has stopped his tremors and he feels calm and looks well. She would like to trial this medication BID prn as needed for his spasms/tremors. I am agreeable. He continues to be febrile. Scans negative for abscess. however last time he had severe UTI per he presented with same symptoms. Evaluated by Dr. Esposito who would like to do a voiding trial if this does not work they will proceed with self cath. At this time patient is calm, no signs of distress, calm and cooperative He denies CP, SOB, N,V,D Exam Narrative Exam Narrative: Const: Elderly male laying in bed, pleasant AAO x3, calm and cooperative. HENMT: Normocephalic atraumatic, PERRLA, EOMI NECK: no JVD, no lymphedema Chest: scar to chest healing, otherwise intact Resp: LSC diminshed anteriorly, unable to listen posteriorly Cardio: NSR ectopic beats once in while, no murmur appreciated GI: BSx4 abd soft nontender : saeed intact draining yellow urine Back: unable to visualize Skin: bilateral venous stasis discoloration to lower extremities, no rashes, multiple scars to various areas of body Extrem: pppx2, cmst, no clubbing, slight edema bilaterally, erythema to right wrist improved. Psych: congurent mood, normal affect. Objective Last Vital Signs Temp 38 C H 01/20/21 15:38 Pulse 85 01/20/21 15:38 Resp 19 01/20/21 15:38 BP 114/71 01/20/21 15:38 Pulse Ox 95 01/20/21 15:38 Laboratory Results - last 24 hr 01/19/21 01/20/21 01/20/21 14:18 06:44 06:44 WBC 12.85 H RBC 3.97 L Hgb 9.8 L Hct 31.5 L MCV 79.3 L MCH 24.7 L MCHC 31.1 L RDW 16.5 H Plt Count 234 MPV 10.6 Immature Gran % 0.5 Neutrophils % 78.2 Lymphocytes % 10.4 Monocytes % 9.9 Eosinophils % 0.8 Basophils % 0.2 Nucleated RBC % 0 Absolute Neutrophils 10.05 H Absolute Lymphocytes 1.34 Absolute Monocytes 1.27 H Absolute Eosinophils 0.10 Absolute Basophils 0.03 Sodium 135 L Potassium 4.4 Chloride 101 Carbon Dioxide 27.7 Anion Gap 6.3 BUN 26 H Creatinine 1.6 H Estimated GFR/1.73 m2 42.70 Glucose 116 H Uric Acid 6.5 6.7 Calcium 9.0 Magnesium 1.7 L
[2021-01-20] MEDS: Senna TAB 1 TAB PO (20:49)
[2021-01-20] MEDS: Docusate Sodium 100 MG CAP PO (20:49)
--- NOTE | 2021-01-20 21:33 | PCNE_ITS ---
Date of service: 01/20/21 Time of Service: 18:33 History of Present Illness History of Present Illness Chief Complaint: sepsis Narrative: From H and P History of Present Illness History of Present Illness Chief Complaint: UTI, Septic Joint? Narrative: 70 y.o male presents to [facility] after having fever and chills x 3 days. PMH DVT with IVC f ilter and eliquis, currently on, Lung cancer with thoracotemy and lobe resection on Sep 11 with 4 round chemo prior to surgery; at this time he is no residual cancer, DM, CKD, anemia of chronic disease and indwelling catheter that gets changed weekly. With every change he receives cipro prophylactically due to UTI's however on the last 2 previous catheter changes patient has required admission due to severe UTI. On 12/16 he was admitted with enterococcus face that was sensitive to cipro he was initially on ceftriaxone but then switched to po cipro. His urine cx negative for nitrates and trace leuk estra. He also presents with erythema to right wrist radiating up to thumb. There is swelling and warmth to this area. CRP was 18.14, ESR 117, concern for septic joint as this was sudden onset. Patient states he was able to ambulate with walker on however by Wednesday he was struggling and by today he was in so much pain by his wrist that he could barely move it. He was asked to be admitted to hospitalist for further management. Blood cultures pending, urine culture pending. ER physician spoke with Dr. Washington, aspiration was done by ER physician revealing 39,748 fluid wbc with 86 % polynuclear cell leading to septic joint suspicion. Dr. Washington consulted. Patient started on cefepime and vanco. Will trend CRP and ESR. PT/OT consulted, urology, renal u/s as patient continues to fail voiding trials. Analgesics for pain multimodal. At this time he is afebrile. Denies CP, SOB, N/V/d. Ortho COnsult: Given the pain localized to the right wrist an aspiration of the right wrist was performed by Dr. Zuniga. This revealed 39,748 white blood cells, 86% polymorphonuclear cells. He was started on broad-spectrum antibiotics given his history. This was not sent for crystal analysis. I was consulted for the concern of a right septic wrist. Initial gram stain is positive only for white blood cells and no bacteria. Currently reports that the right wrist pain is better than it was yesterday. He denies any worsening erythema about the right hand. When I ask about his difficulty with walking he is quite unclear on the exact source of this limitation. He uses a walker at baseline and is working on try and improve his mobility. He feels he was unable to bear weight on the right hand but also reports having pain in both shoulders, unsure which one it was that was the worst. 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 He also reports some discomfort in his legs when he tries to stand but is really unclear on these details. He also feels that both legs and both arms are getting weaker. He also reports a burning type sensation in the upper extremities more than lower extremities. Interim Hx: I have known and for about 30 years. 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 Ed states that he is feeling much much better. His head is starting to clear. He feels more able to recall past events and how he got to this admission. He had his usual jokes to tell me. He was recently diagnosed with lung cancer, had a thoracoectomy, 4 rounds of chemo with the expectation that he was cured. He has had problems due to his immobility, obesity, and diabetes. At this point he requires a walker, has a indwelling catheter, and most recently a septic right wrist. He is on appropriate antibiotics. He is especially appreciative of his Sandie who has stopped many of her activities so that she can care for her . Consults Consult date: 01/20/21 Requesting physician: Nakul Altamirano Assessment and Plan Assessment and plan (1) Septic joint of right wrist: Status: Suspected Qualifiers: Septic arthritis organism: due to unspecified organism Qualified Code(s): M00.9 - Pyogenic arthritis, unspecified (2) CKD (chronic kidney disease): Status: Chronic (3) History of lobectomy of lung: Status: Chronic (4) Insulin dependent diabetes mellitus: Status: Chronic (5) Palliative care patient: Status: Acute Assessment and plan: 70 year old man with recent history of lung cancer, s/p lobectomy, DM, TBI and now sepsis. We discussed goals of care. He wishes to remain a FULL CODE He has diabetes. I recommend a more recent A1c as its been several months and he has had many events which may alter BS I will continue to follow him Review of Systems Narrative: Ed is for doing much much better as of noon today. He has less pain in his wrist. He feels like his memory and brain fog is clearing. He is short of breath but that is his baseline. No nausea vomiting diarrhea or constipation. [facility] Medical History CKD (chronic kidney disease) DVT (deep venous thrombosis) S/p IVC filter Hx of traumatic brain injury Insulin dependent diabetes mellitus Lung cancer Multinodular thyroid Urinary retention UTI (urinary tract infection) Surgical History History of lobectomy of lung Social History Smoking/Tobacco Use Status: Former Tobacco Use Smoking risk assessment performed?: Yes Alcohol Intake: current Alcohol Intake frequency: holidays/special occasions only Drug use: Occasionally Substance use type: marijuana Details: pt states he has medical marijuana Do you feel safe at home: Yes Do you feel safe in your relationship?: Yes Exam Narrative Exam Narrative: Ed is lying in bed. He weighs about what he did the last time I saw him many years ago. He is talking in complete sentences and does not appear short of breath while lying there. His heart is irregular. Diminished lung sounds. Abdomen was soft. Legs no edema and he considers them at baseline. Results Last Vital Signs Temp 100.4 F H 01/20/21 15:38 Pulse 85 01/20/21 15:38 Resp 19 01/20/21 15:38 BP 114/71 01/20/21 15:38 Pulse Ox 95 01/20/21 15:38 Labs Result diagrams: 01/21/21 06:40 01/20/21 06:44 Labs: Laboratory Results - last 24 hr 01/19/21 01/20/21 01/20/21 14:18 06:44 06:44 WBC 12.85 H RBC 3.97 L Hgb 9.8 L Hct 31.5 L MCV 79.3 L MCH 24.7 L MCHC 31.1 L RDW 16.5 H Plt Count 234 MPV 10.6 Immature Gran % 0.5 Neutrophils % 78.2 Lymphocytes % 10.4 Monocytes % 9.9 Eosinophils % 0.8 Basophils % 0.2 Nucleated RBC % 0 Absolute Neutrophils 10.05 H Absolute Lymphocytes 1.34 Absolute Monocytes 1.27 H Absolute Eosinophils 0.10 Absolute Basophils 0.03 Sodium 135 L Potassium 4.4 Chloride 101 Carbon Dioxide 27.7 Anion Gap 6.3 BUN 26 H Creatinine 1.6 H Estimated GFR/1.73 m2 42.70 Glucose 116 H Uric Acid 6.5 6.7 Calcium 9.0 Magnesium 1.7 L Laboratory Tests 03/20/20 01/19/21 01/19/21 09:10 14:18 14:18 WBC ESR 117 H Creatinine Hemoglobin A1c 6.6 H C-Reactive Protein 18.14 H 01/20/21 01/20/21 06:44 06:44 WBC 12.85 H ESR Creatinine 1.6 H Hemoglobin A1c C-Reactive Protein MRI C,T,L No abscesses found. IMPRESSION: 1. Multilevel degenerative changes in the lumbar spine resulting in central spinal canal neural foraminal stenosis. 2. No evidence of an epidural abscess or abnormal enhancement. 3. Hypointense lesion in the L1 vertebral body. Bone scan may be obtained for further evaluation.
[2021-01-21 00:02] VITALS: BP 125/75; PULSE 63; RESP 18; TEMP 36.4; O2SAT 96
[2021-01-21] MEDS: Normal Saline 1,000 ML 150 ML IV (05:50)
[2021-01-21 07:28] LABS: Abs Immature Grans 0.07 10^3/uL (0.0-0.06); Absolute Basophil Count 0.01 10^3/uL (0.0-0.2); Absolute Eosinophil Count 0.02 10^3/uL (0.0-0.7); Absolute Lymphocyte Count 0.78 10^3/uL (1.2-3.4); Absolute Monocyte Count 0.87 10^3/uL (0.1-0.8); Basophils % 0.1; Eosinophils % 0.2; HCT 30.4 % (40.0-50.0); HGB 9.5 g/dL (13.5-17.5); Immature Grans % 0.6; Lymphocytes % 6.7; MCH 25.3 pg (27.0-33.0); MCHC 31.3 % (32.0-36.0); MCV 80.9 fL (80-95); MPV 10.5 fL (8.0-11.0); Monocytes % 7.5; Neutrophils % 84.9; Nucleated RBC 0 %; Platelet Count 240 10^3/uL (130-400); RBC 3.76 10^6/uL (4.36-5.78); RDW 16.4 % (11.8-14.1); RDW-SD 48.5 fL; WBC 11.66 10^3/uL (4.4-10.8)
[2021-01-21 07:38] LABS: Anion Gap 7.6 mmol/L (3-11); BUN 30 mg/dL (7-18); CO2 24.4 mmol/L (21.0-32.0); CREATININE 1.3 mg/dL (0.70-1.30); Calcium 9.2 mg/dL (8.5-10.1); Chloride 102 mmol/L (98-107); Estimated GFR 54.26 (mL/min/1.73m2); Glucose 121 mg/dL (74-106); Magnesium 1.9 mg/dL (1.8-2.4); Potassium 4.5 mmol/L (3.5-5.1); Sodium 134 mmol/L (136-145)
[2021-01-21] MEDS: Omeprazole 20 MG CAPCR PO (07:51)
[2021-01-21] MEDS: Apixaban 5 MG TAB PO ×2 (07:52→21:39)
[2021-01-21] MEDS: predniSONE 20 MG TAB 40 MG PO (07:53)
[2021-01-21] MEDS: CEFEPIME 2 GM in Normal Saline 100 ML IVPB ×2 (07:54→21:38)
[2021-01-21 08:07] VITALS: BP 146/75; PULSE 60; RESP 18; TEMP 36.5; O2SAT 95
--- NOTE | 2021-01-21 09:02 | W.PM.PROGNOT ---
Date of Service Date of service: 01/21/21 Time of Service: 09:02 Assessment and Plan Assessment and plan (1) Septic joint of right wrist: Status: Suspected Assessment and plan: Aspiration of wrist WBC fluid 26093, fld, poly nuclear wbc 86, Dr. Washington consulted, not convinced this is septic joint at this time as he is able to move his wrist. Will follow cultures. Uric acid r/o for gout. within normal limits He does have CRP of 18 with ESR 117 Proacl 0.2 day 3 vancomycin and cefepime. Qualifiers: Septic arthritis organism: due to unspecified organism Qualified Code(s): M00.9 - Pyogenic arthritis, unspecified (2) CKD (chronic kidney disease): Status: Chronic Assessment and plan: at baseline not requiring fluids at this time, does not appear dry or septic. Lactate normal (3) History of lobectomy of lung: Status: Chronic Assessment and plan: Sep 11 patient after receiving four round chemo had thoracotamy with right upper lobectomy now not showing any signs of cancer per and having 6 months visits with oncology no post radiation or chemo needed. (4) Insulin dependent diabetes mellitus: Status: Chronic Assessment and plan: blood sugars today 123 and 130 Continue levemir 25 units BID Carb diet will be on achs fingersticks and moderate sliding scale A1C 5.9 (5) Palliative care patient: Status: Acute Assessment and plan: per evaluation note: 70 year old man with recent history of lung cancer, s/p lobectomy, DM, TBI and now sepsis. We discussed goals of care. He wishes to remain a FULL CODE He has diabetes. I recommend a more recent A1c as its been several months and he has had many events which may alter BS I will continue to follow him (6) Urinary retention: Status: Acute Assessment and plan: followed by Dr Esposito indwelling saeed catheter (7) Discharge planning issues: Status: Acute Assessment and plan: home vs snf when medically stable. discussed with Dr Altamirano Subjective Subjective Patient reports: no new complaints, feels better, tolerating liquids well, tolerating a regular diet and afebrile Interval history since last seen: saeed to gravity draining with no issues working with PT Exam Const General: cooperative, healthy appearing and no acute distress HENNH Head: normal to inspection Face and sinus: normal facial exam Eyes General: appearance normal, both eyes and all related structures Pupils: PERRL EOM: EOM intact bilaterally Neck Neck: normal visual inspection Chest Chest: normal inspection of the chest and no tenderness Resp Effort & Inspection: normal respiratory effort and able to speak in complete sentences Auscultation: clear to auscultation bilaterally Cardio Rate: regular rate Rhythm: regular rhythm GI Inspection: normal to inspection Palpation: soft, not firm, not rigid and nontender Auscultation: normal bowel sounds Male General Exam: Yes other (saeed catheter in place) Skin General skin exam: no rashes or lesions noted Neuro General: patient alert, patient awake and patient oriented x3 Cognition: normal cognition Speech: speech normal Motor: muscle tone normal throughout Sensory Exam: no sensory deficits noted Extrem General: no edema Psych Appearance: grossly normal Mental Status: mental status grossly normal Speech and Movement: speech and movement normal Affect: normal affect Objective Last Vital Signs Temp 36.5 C 01/21/21 08:07 Pulse 60 01/21/21 08:07 Resp 18 01/21/21 08:07 BP 146/75 H 01/21/21 08:07 Pulse Ox 95 01/21/21 08:07 Laboratory Results - last 24 hr 01/21/21 01/21/21 06:40 06:40 WBC 11.66 H RBC 3.76 L Hgb 9.5 L Hct 30.4 L MCV 80.9 MCH 25.3 L MCHC 31.3 L RDW 16.4 H Plt Count 240 MPV 10.5 Immature Gran % 0.6 Neutrophils % 84.9 Lymphocytes % 6.7 Monocytes % 7.5 Eosinophils % 0.2 Basophils % 0.1 Nucleated RBC % 0 Absolute Neutrophils 9.90 H Absolute Lymphocytes 0.78 L Absolute Monocytes 0.87 H Absolute Eosinophils 0.02 Absolute Basophils 0.01 Sodium 134 L Potassium 4.5 Chloride 102 Carbon Dioxide 24.4 Anion Gap 7.6 BUN 30 H Creatinine 1.3 Estimated GFR/1.73 m2 54.26 Glucose 121 H Calcium 9.2 Magnesium 1.9
--- NOTE | 2021-01-21 09:21 | PDOC.CMPRO ---
- If Service Date Differs Date of service: 01/21/21 Time of Service: 09:21 Care Management Progress Note S/O: Cleve was siting up in bed when CM met with him. He shared that he has been considering transitioning to intermittent catheterizations. Per Dr. Esposito's note, Cleve's has expressed a willingness to assist with the process. Cleve continues to work with PT. He has been able to increase distance with ambulation but becomes fatigues and still has difficulty with upper arm strength. The fluid aspirated from Cleve's wrist has many WBCs but no growth at 24 hours. A: Cleve is a 70 year old man admitted on 01/19/21 with urosepsis P:Cleve will likely be discharged home with a resumption of home health services. He will follow up with his PCP and plan of care and transport with his . CM will continue to support Cleve and assess for discharge planning needs.
[2021-01-21] MEDS: Lidocaine 5% Patch 2 PATCH TP (09:34)
[2021-01-21] MEDS: VANCOMYCIN/WATER (PEG) 1.25 GM/250 ML BAG IV (09:35)
[2021-01-21 09:38] LABS: Hemoglobin A1C 5.9 % (<5.7)
[2021-01-21] MEDS: Acetaminophen 325 MG TAB 650 MG PO (11:25)
[2021-01-21] MEDS: oxyCODONE 10 MG TAB PO (11:26)
[2021-01-21] MEDS: Docusate Sodium 100 MG CAP PO ×2 (11:27→21:39)
--- NOTE | 2021-01-21 12:02 | PGE_ITS ---
Documented by User: JOSUÉ Beltran 01/21/21 12:31 Date of Service Date of service: 01/21/21 Time of Service: 11:00 Assessment and Plan Assessment and plan (1) Right wrist effusion: Status: Acute Assessment and plan: Andres is a 70 year old male PMHx significant for lung CA s/p thoracotamy 09/11/2020 with right upper lobectomy after receiving 4 rounds of chemotherapy, TBI, insulin dependent DM and an indwelling Ledbetter catheter, who presented to the ED with worsening right wrist pain and swelling and reported erythema yesterday. Concern for a septic wrist prompted orthopedic consultation. Aspiration of synovial fluid from the right wrist revealed 39,748 WBC's however, 24 hours cultures have resulted in no bacterial growth and no ba cteria seen. He has received IV vancomycin and is overall feeling better today. Passively, I can move his right wrist in all directions without significant irritation or pain. Patient reports soreness about the wrist with passive motions but it is tolerable and pain is rated as a 5/10. There is no effusion, erythema or guarding of right wrist today on exam. I am not concerned for a septic joint. We will plan to continue physical therapy to optimize strength and ADL's. Discussed plan with physical therapy who suggests working with patient when his is there and I agree. We will follow the synovial fluid culture. No other intervention is warranted at this time. Subjective Subjective Interval history since last seen: Andres states he feels better than he did yesterday. He states his right wrist feels sore but denies sharp pain, severe pain or inability to move the wrist. He would rate his right wrist pain as a 5/10 on a pain scale of 1-10. He states he generally feels weak overall. Exam Narrative Exam Narrative: Pt sitting comfortably in bed with resting left upper extremity tremor. Right Wrist/Hand Inspection: Skin intact without erythema, edema, effusion, wounds, rashes or lesions PROM: Wrist flexion/extension ulnar/radial deviation: full and pt reports soreness but not guarding MCP, PIP, DIP flexion/extension: intact, full and painless Java [employer] strength: moderate loss of strength however, equal to contralateral side, increased tremor of bilateral upper extremities after motion completed Palpation distal radius: nontender distal ulna: nontender anatomic snuffbox: nontender scaphoid tubercle: nontender Radial pulses +2 bilaterally, brisk capillary refill, SILT Const General: cooperative, healthy appearing and comfortable Nutritional Appearance: average body habitus Orientation: alert and awake Resp Effort & Inspection: normal respiratory effort, able to speak in complete sentences, no grunting and not labored Neuro General: patient alert, patient awake and moves all extremities Speech: speech normal Psych Appearance: grossly normal Mental Status: mental status grossly normal Affect: normal affect Attitude: cooperative Thought Process: normal Thought Content: normal Insight: insight good Judgment: judgment good Objective Last Vital Signs Temp 97.7 F 01/21/21 08:07 Pulse 60 01/21/21 08:07 Resp 18 01/21/21 08:07 BP 146/75 H 01/21/21 08:07 Pulse Ox 95 01/21/21 08:07 Laboratory Results - last 24 hr 01/19/21 01/21/21 01/21/21 17:10 06:40 06:40 WBC 11.66 H RBC 3.76 L Hgb 9.5 L Hct 30.4 L MCV 80.9 MCH 25.3 L MCHC 31.3 L RDW 16.4 H Plt Count 240 MPV 10.5 Immature Gran % 0.6 Neutrophils % 84.9 Lymphocytes % 6.7 Monocytes % 7.5 Eosinophils % 0.2 Basophils % 0.1 Nucleated RBC % 0 Absolute Neutrophils 9.90 H Absolute Lymphocytes 0.78 L Absolute Monocytes 0.87 H Absolute Eosinophils 0.02 Absolute Basophils 0.01 Sodium 134 L Potassium 4.5 Chloride 102 Carbon Dioxide 24.4 Anion Gap 7.6 BUN 30 H Creatinine 1.3 Estimated GFR/1.73 m2 54.26 Glucose 121 H Hemoglobin A1c Calcium 9.2 Magnesium 1.9 Path Cons Comment See comment 01/21/21 06:40 WBC RBC Hgb Hct MCV MCH MCHC RDW Plt Count MPV Immature Gran % Neutrophils % Lymphocytes % Monocytes % Eosinophils % Basophils % Nucleated RBC % Absolute Neutrophils Absolute Lymphocytes Absolute Monocytes Absolute Eosinophils Absolute Basophils Sodium Potassium Chloride Carbon Dioxide Anion Gap BUN Creatinine Estimated GFR/1.73 m2 Glucose Hemoglobin A1c 5.9 H Calcium Magnesium Path Cons Comment Documented by User: Brandon Washington MD 01/27/21 07:33
--- NOTE | 2021-01-21 13:54 | PTTR_ITS ---
Date of service: 01/21/21 Time of Service: 11:50 PT Notes Visit Reasons: UROSEPSIS Inpatient Physical Therapy Treatment Note [facility] Date: 01/21/2021 PRECAUTIONS: Fall SUBJECTIVE: Andres states that he is feeling a little better today. He is pleasant and agreeable to participating in PT. He reports that he is very pleased with the care that he has received here at [facility], and that he feels his concerns are heard and addressed. OBJECTIVE: PAIN: Patient c/o L UE pain at end of p.m. treatment BED MOBILITY/TRANSFERS Supine-sit: Mod A with HOB at 40 degrees Sit-supine: SBA with HOB flat Sit-stand: CGA x2 Stand-sit: CGA x2 Bed-chair: CGA x2 Chair-bed: CGA x2 GAIT Assistive Device: FWW Weight bearing: Full Assist: CGA x2 Distance: 6 steps in a.m.; 6 steps in p.m. THEREX: Patient was instructed in a supine UE and LE strengthening program, as per flow sheet. He requires assist with shoulder flexion due to B UE weakness. ASSESSMENT: Patient tolerated session with c/o increased fatigue with activity and with c/o L UE pain at end of p.m. PT session. He was able to tolerate a progression in gait distance with FWW support and CGA x2. PLAN: Continue with gait training and global strengthening activities for con tinued progression toward baseline level of function. TREATMENT CODE/TIME: Session 1: 45 minutes; 41293 x2, 44321 (11:50) Session 2: 30 minutes; 44913 x2 (13:00)
--- NOTE | 2021-01-21 15:14 | CHAPLAIN ---
Cleve was resting in bed when I visited. His , Sandie, was with him. Cleve talked about growing up on [facility], and his parent running an [employer] restaurant in [place], [place]. He and Sandie moved up here in the early 80s and love their place in [place]. I explained my role and offered support.
[2021-01-21 16:13] VITALS: BP 123/70; PULSE 61; RESP 16; TEMP 36.5; O2SAT 96
[2021-01-21] MEDS: Insulin Aspart 300 UNITS/3 ML PEN SC (17:22)
[2021-01-21] MEDS: Normal Saline Flush 10 ML SYR IVP (21:39)
[2021-01-21] MEDS: Senna TAB 1 TAB PO (21:39)
[2021-01-21 23:34] VITALS: BP 120/72; PULSE 64; RESP 16; TEMP 36.3; O2SAT 97
--- NOTE | 2021-01-22 00:16 | NUR.NOTE ---
Nursing Note: At around 21:40, the patient was assessed for 2 lidocaine patches that were placed on the shoulders by the previous shift. The patches were not located on the patient at this time. The patient was re-checked for 2 lidocaine patches around 00:15 with the [employer] but the patches were not found; the linens were also checked.
[2021-01-22] MEDS: VANCOMYCIN/WATER (PEG) 1.25 GM/250 ML BAG IV (04:30)
[2021-01-22] MEDS: Normal Saline Flush 10 ML SYR IVP (04:31)
[2021-01-22 07:33] VITALS: BP 159/75; PULSE 51; RESP 17; TEMP 36.1; O2SAT 96
[2021-01-22] MEDS: Apixaban 5 MG TAB PO ×2 (08:21→22:09)
[2021-01-22] MEDS: CEFEPIME 2 GM in Normal Saline 100 ML IVPB (08:22)
[2021-01-22] MEDS: predniSONE 20 MG TAB 40 MG PO (08:22)
[2021-01-22] MEDS: Omeprazole 20 MG CAPCR PO (08:22)
--- NOTE | 2021-01-22 10:24 | PDOC.CMPRO ---
- If Service Date Differs Date of service: 01/22/21 Time of Service: 10:24 Care Management Progress Note S/O: Cleve was sitting up in bed when CM met with him. His was on the phone, on facetime, and was able to participate in our discharge planning conversation. Per report, he will have a voiding trial today, and his will require caregiver training prior to discharge. Cleve's RN was agreeable to helping train his this afternoon, when she is available. He will have a resumption of services upon discharge. Per PT, his is nervous about driving Cleve home and assisting with transferring him in/out of the vehicle. CM will discuss transportation options that he may qualify for. CM will continue to follow. A: Andres is a 70 year old male admitted to [facility] on 01/19/21 for urosepsis. P: Cleve will likely be discharged home with a resumption of home health services. He will follow up with his PCP and plan of care and transport with his . CM will continue to support Cleve and assess for discharge planning needs.
[2021-01-22] MEDS: Lidocaine 5% Patch 2 PATCH TP (10:25)
--- NOTE | 2021-01-22 13:50 | W.PM.PROGNOT ---
Date of Service Date of service: 01/22/21 Time of Service: 13:50 Assessment and Plan Assessment and plan (1) Septic joint of right wrist: Status: Ruled-out Assessment and plan: cultures negative, antibiotics discontinued. symptoms improved on steroids, complete burst then taper Qualifiers: Septic arthritis organism: due to unspecified organism Qualified Code(s): M00.9 - Pyogenic arthritis, unspecified (2) CKD (chronic kidney disease): Status: Chronic Assessment and plan: at baseline not requiring fluids at this time, does not appear dry or septic. Lactate normal Qualifiers: Chronic kidney disease stage: stage 3 (moderate) Chronic kidney disease stage 3 subtype: unspecified whether 3a or 3b Qualified Code(s): N18.30 - Chronic kidney disease, stage 3 unspecified (3) History of lobectomy of lung: Status: Chronic Assessment and plan: Sep 11 patient after receiving four round chemo had thoracotamy with right upper lobectomy now not showing any signs of cancer per and having 6 months visits with oncology no post radiation or chemo needed. (4) Insulin dependent diabetes mellitus: Status: Chronic Assessment and plan: blood sugars well controlled Continue levemir 25 units BID Carb diet will be on achs fingersticks and moderate sliding scale A1C 5.9 (5) Palliative care patient: Status: Acute Assessment and plan: per evaluation note: 70 year old man with recent history of lung cancer, s/p lobectomy, DM, TBI and now sepsis. goals of care discusses. He wishes to remain a FULL CODE He has diabetes. Recommend a more recent A1c as its been several months and he has had many events which may alter BS Dr Reid will continue to follow him outpatient (6) Urinary retention: Status: Acute Assessment and plan: followed by Dr Esposito voiding trial today. will bladder scan and teach self cath to patient and if PVR > 500 or unable to void and uncomfortable. (7) Discharge planning issues: Status: Acute Assessment and plan: home with resumption of home health services tomorrow. discussed with Dr Altamirano Subjective Subjective Patient reports: no new complaints, feels better, pain is less and afebrile Interval history since last seen: working with physical therapy and progressing well. will remove saeed Exam Const General: cooperative, healthy appearing and no acute distress HENAR Head: normal to inspection Face and sinus: normal facial exam Eyes General: appearance normal, both eyes and all related structures Pupils: PERRL EOM: EOM intact bilaterally Neck Neck: normal visual inspection Lymphatic: no lymphadenopathy noted Chest Chest: normal inspection of the chest and no tenderness Resp Effort & Inspection: normal respiratory effort and able to speak in complete sentences Auscultation: clear to auscultation bilaterally Cardio Rate: regular rate Rhythm: regular rhythm GI Inspection: normal to inspection Palpation: soft, not firm, not rigid and nontender Auscultation: normal bowel sounds Male General Exam: Yes other (saeed catheter in place) Penis: normal penis Scrotum: scrotum normal Skin General skin exam: no rashes or lesions noted Neuro General: patient alert, patient awake and patient oriented x3 Cognition: normal cognition Speech: speech normal Motor: muscle tone normal throughout Sensory Exam: no sensory deficits noted Extrem General: no edema Psych Appearance: grossly normal Mental Status: mental status grossly normal Speech and Movement: speech and movement normal Affect: normal affect Objective Last Vital Signs Temp 36.1 C L 01/22/21 07:33 Pulse 51 L 01/22/21 07:33 Resp 17 01/22/21 07:33 BP 159/75 H 01/22/21 07:33 Pulse Ox 96 01/22/21 07:33
--- NOTE | 2021-01-22 15:42 | PT.INTREAT ---
Date of service: 01/22/21 Time of Service: 15:10 PT Notes Visit Reasons: UROSEPSIS Inpatient Physical Therapy Treatment [facility] Date: 01/22/2021 PRECAUTIONS: Fall SUBJECTIVE: Cleve states that he is feeling a little better today. He is pleasant and agreeable to participating in PT. OBJECTIVE: PAIN: Patient c/o R knee and calf pain BED MOBILITY/TRANSFERS Supine-sit: Mod A Sit-stand: SBA Stand-sit: SBA GAIT Assistive Device: FWW Weight bearing: Full Assist: SBA Distance: 5 sides steps to R Deviation: R knee pain THEREX: Patient was instructed in a supine LE strengthening and stabilization program, as per flow sheet. ASSESSMENT: Patient tolerated session with complaint of R knee and calf pain. He appears to be limited by anxiety. PLAN: Continue with gait and transfer training as well as global strengthening for improved activity tolerance. TREATMENT CODE/TIME: Session 1: 20 minutes; 13772 (11:40) Session 2: 30 minutes; [id number] x2 (15:10)
[2021-01-22] MEDS: Milk of Magnesia 30 ML CUP PO (16:43)
[2021-01-22] MEDS: Senna TAB 1 TAB PO (16:43)
[2021-01-22] MEDS: Docusate Sodium 100 MG CAP PO (16:44)
[2021-01-22] MEDS: Insulin Aspart 300 UNITS/3 ML PEN SC (17:15)
[2021-01-22 23:00] VITALS: BP 152/83; PULSE 59; RESP 18; TEMP 36.4; O2SAT 97
[2021-01-23 07:00] VITALS: BP 159/82; PULSE 59; RESP 18; TEMP 36; O2SAT 99
[2021-01-23] MEDS: predniSONE 20 MG TAB 40 MG PO (07:48)
[2021-01-23] MEDS: Omeprazole 20 MG CAPCR PO (07:48)
[2021-01-23] MEDS: Apixaban 5 MG TAB PO (07:48)
--- NOTE | 2021-01-23 08:42 | W.PM.PROGNOT ---
Date of Service Date of service: 01/23/21 Time of Service: 08:42 Assessment and Plan Assessment and plan (1) Urinary retention: Status: Acute Assessment and plan: Based on his ability to empty the bladder so far, it should be safe to send him home without a catheter. When his comes in later today, we will give her instructions and supplies for CIC if he goes back into retention at home. We should probably see him back in the office in a month or so to make sure he continues to empty his bladder reasonably well. Subjective Subjective Interval history since last seen: The patient was given avoid trial yesterday and has been able to urinate on his own. His residual urines have been in the 100 to 200 cc range by bladder scan His was not able to come in yesterday for CIC instructions. It is expected that the patient will be discharged today. Exam Narrative Exam Narrative: He is in no current stress. He is cooperative. His vital signs are documented elsewhere He is awake and alert Objective Last Vital Signs Temp 36.4 C L 01/22/21 23:00 Pulse 59 L 01/22/21 23:00 Resp 18 01/22/21 23:00 BP 152/83 H 01/22/21 23:00 Pulse Ox 97 01/22/21 23:00
[2021-01-23] MEDS: Lidocaine 5% Patch 2 PATCH TP (09:32)
--- NOTE | 2021-01-23 13:25 | W.PM.DS.N ---
Date of service: 01/23/21 Time of Service: 13:25 DS: Diagnosis Discharge Diagnosis (1) Urinary retention: Status: Acute Discharge Plan Disposition Patient Disposition: HOME W/HOME HEALTH SERVICE Condition: Stable Discharge Details Reason For Visit: UROSEPSIS Admit Date/Time: 01/19/21 16:18 Admit Provider: Jairo Wright Attending Provider: Jairo Wright Primary Care Provider: Lucinda Mcgowan Hospital Course Hospital Course: This is a 70 y.o male presents to [facility] after having fever and chills x 3 days. He has a complex history including DVT with IVC filter on and lung cancer with thoracotemy and lobe resection on Sep 11 with 4 round chemo prior to surgery; at this time he is no residual cancer, DM, CKD, anemia of chronic disease and indwelling catheter that gets changed weekly. With every change he receives cipro prophylactically due to UTI's however on the last 2 previous catheter changes patient has required admission due to severe UTI. On 12/16 he was admitted with enterococcus that was sensitive to cipro he was initially on ceftriaxone but then switched to po cipro. His urine cx negative for nitrates and trace leuk estrace. He also presented with erythema to right wrist radiating up to thumb. There is swelling and warmth to this area. CRP was 18.14, ESR 117, concern for septic joint as this was sudden onset. Patient states he was able to ambulate with walker on however by Wednesday he was struggling and by today he was in so much pain by his wrist that he could barely move it. He was admitted to hospitalist for further management. He was placed on vancomycin and cefepime while awaiting culture reports. Ultimately, all cultures, including right wrist aspirate, blood and urine cultures remained negative for any growth. He was evaluated by orthopedics and it is noted that he not only has right wrist pain, but pain in bilateral shoulders and weakness in both lower extremities. Since CRP and sed rate significantly elevated he underwent MRI of spine to r/u epidural abscess which was negative. He was started on steroids and had marked improvement in his symptoms. he was reambulated with PT and making good progression. He was given a void trial yesterday and has been able to urinate on his own. His residual urines have been in the 100 to 200 cc range by bladder scan. He and his were instructed on straight cath if needed. He will follow up with DR Esposito outpatient. He remains stable off all antibiotics. He will continue tapering steroids as directed. He is being discharged to home with resumption of home health services including nursing PT and OT. discharge discussed with DR Altamirano. Home Meds and New Rx's Prescriptions: New prednisone 20 mg Tablet 40 mg PO DAILY Qty: 10 RF: 0 lidocaine 5 % Adhesive Patch,Medicated 2 patch topical Q24H Qty: 60 RF: 0 omeprazole 20 mg Capsule,Delayed Release(Dr/Ec) 20 mg PO DAILY@0730 Qty: 30 RF: 0 prednisone 10 mg tablet See Taper mg PO DAILY Qty: 30 RF: 0 Continued Levemir U-100 Insulin 100 UNIT/1 ML solution 25 unit SQ BID RF: 0 albuterol sulfate [Proventil HFA] 6.7 GM HFA aerosol inhaler 2 puff Inhalation .Q6HRS RF: 0 albuterol sulfate 2.5 MG/3 ML solution for nebulization 3 ml Inhalation QID PRN PRN (Reason: Dyspnea) Qty: 30 RF: 0 Eliquis 5 mg tablet 5 mg PO BID RF: 0 Discharge Instructions Instructions: Urinary Retention in Men (ED) Additional Instructions: you have been urinating and emptying your bladder since we removed the saeed catheter. should you develop symptoms of retention including pain, inability to urinate, distended bladder, you should straight catheterize yourself as instructed. drink 6-8 glasses of water daily to stay well hydrated. continue Prednisione with taper, take 40 mg daily for next 5 days, then 30 mg daily for 3 days, 20 mg daily for 3 days, 10 mg daily for 3 days, 5 mg daily for 3 days then discontinue. You will find your blood sugars may be elevated while on the steroids. take prednisone with food in your stomach in the morning. you have also been placed on a medication to protect your stomach while on the this medication, omeprazole. you can discuss with your doctor if he wants you to continue beyond the taper. Stand Alone Forms: Nursing Discharge Form Referrals: Eloy Esposito MD [ [facility] STAFF PHYSICIAN] - 02/21/21 9:00 am Lucinda Mcgowan [Primary Care Provider] - 02/03/21 3:00 pm Activity:: Activity as Tolerated Equipment/Supplies:: catheter supplies provide Diet:: Carb Counting Discharge Orders Discharge Orders: Discharge Order (Routine); Ordered 01/23/21 Ordered By: Yvonne Harrington DS: Summary Time Spent with Patient providing and/or coordinating discharge services: Greater than 30 minutes Status at Discharge Functional status at discharge: uses cane/walker Overall status at discharge: patient is progressing back to baseline Mental Status: mental status grossly normal Speech and Movement: speech and movement normal Mood: congruent mood Affect: normal affect Exam Const General: cooperative, healthy appearing and no acute distress HENMT Head: normal to inspection Face and sinus: normal facial exam Eyes General: appearance normal, both eyes and all related structures Pupils: PERRL EOM: EOM intact bilaterally Neck Neck: normal visual inspection Lymphatic: no lymphadenopathy noted Chest Chest: normal inspection of the chest and no tenderness Resp Effort & Inspection: normal respiratory effort and able to speak in complete sentences Auscultation: clear to auscultation bilaterally Cardio Rate: regular rate Rhythm: regular rhythm GI Inspection: normal to inspection Palpation: soft, not firm, not rigid and nontender Auscultation: normal bowel sounds Male General Exam: Yes other (saeed catheter in place) Penis: normal penis Scrotum: scrotum normal Skin General skin exam: no rashes or lesions noted Neuro General: patient alert, patient awake and patient oriented x3 Cognition: normal cognition Speech: speech normal Motor: muscle tone normal throughout Sensory Exam: no sensory deficits noted Extrem General: no edema Psych Appearance: grossly normal Mental Status: mental status grossly normal Speech and Movement: speech and movement normal Mood: congruent mood Affect: normal affect DS: Data Vitals/I&O Vitals and I&O: Vital Signs Temperature 36 C L 01/23/21 07:00 Temperature Source Tympanic 01/23/21 07:00 Pulse 59 L 01/23/21 07:00 Pulse Rhythm Regular 01/23/21 07:45 Pulse 82 01/19/21 17:45 Respiratory Rate 18 01/23/21 07:00 Respiratory Effort Non-Labored 01/23/21 07:45 Respiratory Depth Normal 01/23/21 07:45 Respiratory Pattern Normal 01/23/21 07:45 Blood Pressure 159/82 H 01/23/21 07:00 Blood Pressure Mean 84 01/19/21 17:45 Blood Pressure Position Supine 01/19/21 13:42 Pulse Oximetry 99 01/23/21 07:00 Oxygen Delivery Method Room Air 01/23/21 07:00 Oxygen Flow Rate 0 01/23/21 07:00 Pain Level 0 01/23/21 07:00 Comment 01/19/21 13:42 Intake & Output 01/22/21 01/23/21 01/23/21 23:59 11:59 23:59 Intake Total 360 / 700 240 / 600 360 / 600 Output Total 1021 / 3121 340 / 340 Balance -661 / -2421 -100 / 260 360 / 260 Intake: Oral 360 / 600 240 / 600 360 / 600 Output: Urine 1021 / 3121 340 / 340 Other: Urine Color Yellow Yellow Urine Appearance Clear Clear Urine Odor Normal None Stool Size Large Stool Characteristics Hard Voiding Methods Urinal Urinal Data Completed and Pending Labs on day of discharge: Preliminary micro results at discharge 01/19/21 17:10 Body Fluid Culture - Preliminary Synovial - Not Specified 01/19/21 14:32 Blood Culture - Preliminary Blood NO GROWTH 72 HOURS 01/19/21 14:18 Blood Culture - Preliminary Blood NO GROWTH 72 HOURS PFSH Medical History CKD (chronic kidney disease) DVT (deep venous thrombosis) S/p IVC filter Hx of traumatic brain injury Insulin dependent diabetes mellitus Lung cancer Multinodular thyroid Urinary retention UTI (urinary tract infection) Surgical History History of lobectomy of lung Social History Smoking/Tobacco Use Status: Former Tobacco Use Smoking risk assessment performed?: Yes Alcohol Intake: current Alcohol Intake frequency: holidays/special occasions only Drug use: Occasionally Substance use type: marijuana Details: pt states he has medical marijuana Do you feel safe at home: Yes Do you feel safe in your relationship?: Yes
--- NOTE | 2021-01-23 15:37 | PT.INTREAT ---
Date of service: 01/23/21 Time of Service: 15:10 PT Notes Visit Reasons: UROSEPSIS Inpatient Physical Therapy Treatment Note [facility] Date: 01/23/2021 PRECAUTIONS: Fall SUBJECTIVE: Cleve states that he is feeling a little better today. He is pleasant and agreeable to participating in PT. OBJECTIVE: PAIN: No c/o pain BED MOBILITY/TRANSFERS Sit-stand: CGA Stand-sit: CGA Bed-chair: SBA GAIT Assistive Device: FWW Weight bearing: Full Assist: SBA Distance: 6' CAR TRANSFER: Patient was instructed in appropriate car transfer techniques. He requires set up and CGA + SBA with minimal cueing. ASSESSMENT: Patient tolerated session without complaint. PLAN: Discharge to home with resumption of PT. TREATMENT CODE/TIME: 15 minutes; [id number] (15:10)
--- NOTE | 2021-01-23 16:02 | PDOC.CMDIS ---
- If Service Date Differs Date of service: 01/23/21 Time of Service: 16:02 LACE Index Scoring Tool - Questions: Length of Stay (in days): 4 - 6 Acuity (Admit via E.D.?): Yes Comorbidities: Diabetes w/o Complication, Any Tumor, Liver or Renal Disease E.D. Visits: 2 - Answers: Total Score: 14 Risk of Readmission: High Risk Care Management Discharge Reason for Hospitalization: septic joint right wrist. urosepsis Discharge Plan: Andres will return home with a resumption of HH RN, PT, OT. His will drive him home via private vehicle. CM ordered a lift assist by [employer] to help them into the home. He will follow up with his PCP and discharge plan of care. Patient/Family Education Needs: Review discharge instructions regarding activity levels and medications, discussion of self care needs including ask me three. Services Needed at Discharge: Home Health Care Services (resume HH RN, PT, OT), Transportation ([employer] lift assist)
--- NOTE | 2021-01-24 15:42 | INDS_ITS ---
Date of service: 01/24/21 Time of Service: 15:42 PT Notes Visit Reasons: [facility]ROSE[facility] Physical Therapy Inpatient Discharge Summary Date: 01/24/2021 dates of service: Dates of service: 03/04/2021 through 01/23/2021 This is a clinical summary of care provided for the duration of dates listed above. No charge was made in the completion of this documentation. Referring Doctor: Kristy Bartholomew NP PT Orders: PT CONSULT: Weakness r/t UTI, right UE weakness/pain r/t DJD, history TBI, recent RU lobectomy Precautions: Fall. Standard. Activity as tolerated. Non-ambulatory, bed-bound. Patient Profile/Admitting Diagnosis: Andres is a 70-year-old male with past medical history significant for traumatic brain injury and history of lung carcinoma status post right upper lobe lobectomy in August 2020 who presented to the ED on 12/16/2020 with mild confusion, increasing weakness, and fever. Patient is diagnosed with urinary tract infection. He is on anticouagulation due to previously diagnosed DVT of the right LE. PMHX: Medical History CKD (chronic kidney disease) DVT (deep venous thrombosis) S/p IVC filter Hx of traumatic brain injury Insulin dependent diabetes mellitus Lung cancer Multinodular thyroid UTI (urinary tract infection) Surgical History History of lobectomy of lung Social History/Home Situation: Lives with in a private home with 3 steps to enter with one rail. Receives PT/OT/nursing 2x/week. 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 has been his main healthcare agent. Per Nurse Alessia, has told her that patient is bed-bound and rarely stands up. He uses the bed lui for all toileting tasks. Per patient, he has not walked for quite a while now and he uses a stand assist device to for bed mobility and transfer. Equipment Owned/DME: Hospital bed, overhead trapeze, transfer chair, stand assist device, bedpan Subjective: NT. See most recent COLD PRESS OPERATOR notes. Objective: General Observation: NT. See most recent COLD PRESS OPERATOR notes. Mental Status: NT. See most recent COLD PRESS OPERATOR notes. Pain: NT. See most recent COLD PRESS OPERATOR notes. ROM: Right Upper Extremity: Able to reach opposite shoulder but unable to bring hand to mouth, to opposite hip and to opposite knee. Opening and closing of hand WFL. Left Upper Extremity: Able to reach opposite shoulder, to opposite hip and to opposite knee. Opening and closing of hand WFL. Right Lower Extremity: Hip flexion unable. Hip abduction unable. Hip ER/IR unable. Knee flexion unable. Knee extension 0 degrees. Ankle dorsiflexion/eversion to neutral only. Ankle plantarflexion/inversion WFL. Left Lower Extremity: Hip flexion to only about 30 degrees. Hip abduction to a bout 10 degrees. Hip ER/IR WFL. Knee flexion to only about 30 degrees. Knee extension 30 degrees to 0 degrees. Ankle dorsiflexion to neutral only. Ankle plantarflexion WFL. Strength: Right Upper Extremity: Shoulder flexors 2-/5. Shoulder abductors 2-/5. Shoulder ER 2-/5. Shoulder IR 2-/5. Forearm pronators 3/5. Forearm supinators 3/5. Elbow flexors 4/5. Elbow extensors 4/5. Beverage Inspection Machine Tender strong. Left Upper Extremity: Shoulder flexors 2-/5. Shoulder abductors 2-/5. Shoulder ER 2-/5. Shoulder IR 2-/5. Forearm pronators 3/5. Forearm supinators 3/5. Elbow flexors 4/5. Elbow extensors 4/5. Beverage Inspection Machine Tender strong. Right Lower Extremity: Hip flexors 2-/5. Hip abductors 2-/5. Hip external rotators 2-/5. Hip internal rotators 2-/5. Knee flexors 2-/5. Knee extensors 2- /5. Ankle dorsiflexors/evertors 2-/5. Ankle plantarflexors/invertors 2-/5. Left Lower Extremity: Hip flexors 2-/5. Hip abductors 2-/5. Hip external rotators 2-/5. Hip internal rotators 2-/5. Knee flexors 2-/5. Knee extensors 2- /5. Ankle dorsiflexors/evertors 2-/5. Ankle plantarflexors/invertors 2-/5. Bed Mobility/Transfers: Rolling moderate assist Supine to sit moderate assist Sit to supine moderate assist Sit to stand standby assist Stand to sit standby assist Bed to chair standby assist Gait: Patient is now able to perform short distance in room ambulation using his front wheel walker with full weightbearing bilateral lower extremities with standby assist with 5 steps sideways up to 6 steps forward but with report of right knee pain. Car transfers: Patient only required contact-guard assist from COLD PRESS OPERATOR for car transfers at time of discharge with minimal cueing needed Balance: Static Sitting: Unable Dynamic Sitting: Unable Static Standing: Unable Dynamic Standing: Unable Assessment: Andres has demonstrated significant improvement during this episode of care and has surpassed all goals initially established below. Patient will benefit from home health PT services in order to progress mobility level using least restrictive assistive ambulatory device, assess home safety, identify additional equipment needs, and establish a functional maintenance program that will increase ability of patient to remain at home. Patient continues to present with clinical signs and symptoms consistent with current/admitting diagnoses that have resulted to mobility limitations, gait instability, generalized weakness, and impairment of motor control as demonstrated by the following impairment level findings: 1. Decreased strength to B UE/LE major muscle groups R>>L 2. Limited standing balance and tolerance 3. Muscle spasms on L UE 4. Limitation of joint range of motion in B UE/LE 5. Pain in R shoulder Impairments are continuing to contribute to the following functional limitations: 1. Dependent bed mobility skills 2. Increasing independence with transfers 3. Increasing activity tolerance for ambulation 4. Decreasing completion time for mobility ADL performance 5. Decreasing fall risk 6. Decreasing risk for skin breakdown Goals: Goals X1 week 1. Supine-Sit minimal assist using overhead trapeze MET 2. Sit-Supine minimal assist to B LE MET 3. Sit-Stand minimal assist and stand by assist of another using STEDY lift MET 4. Stand-Sit minimal assist and stand by assist of another using STEDY lift MET 5. Bed-Chair minimal assist and stand by assist of another using STEDY lift MET 6. Chair-Bed minimal assist and stand by assist of another using STEDY lift MET 7. Good static and dynamic sitting balance/tolerance NOT MET DISCHARGE RECOMMENDATIONS: Patient will benefit from fpc facility placement for continued skilled physical therapy services in order to progress mobility level, strength, and balance in preparation for a safe discharge to home. TREATMENT CODE/TIME: DC Thank you for the opportunity to participate in the care of this patient. Krysten Singh PT, DPT, CLT [facility] [place], [place]
== END 2021-01-23 15:18 | disposition home health service (06) | DRG 699 ==
LOC: ER 17:15 → MS 17:56
PROVIDERS: Nurse Practitioner Acute Care; Nurse Practitioner Family; Admitting Provider General Practice; Emergency Provider Physician Assistant; PCP Nurse Practitioner Family; Visit Provider General Practice
DX: T83.511A Infection and inflammatory reaction due to indwelling urethral catheter, initial encounter (principal); I82.599 Chronic embolism and thrombosis of other specified deep vein of unspecified lower extremity; N39.0 Urinary tract infection, site not specified; Z79.4 Long term (current) use of insulin; E11.22 Type 2 diabetes mellitus with diabetic chronic kidney disease; Z79.01 Long term (current) use of anticoagulants; D63.1 Anemia in chronic kidney disease; Z87.891 Personal history of nicotine dependence; E04.2 Nontoxic multinodular goiter; Z87.820 Personal history of traumatic brain injury; N18.30 Chronic kidney disease, stage 3 unspecified; Z85.118 Personal history of other malignant neoplasm of bronchus and lung; Z90.2 Acquired absence of lung [part of]; R33.9 Retention of urine, unspecified; M25.431 Effusion, right wrist
CPT/HCPCS: 20605; 36415; 71275; 72158; 74177; 76770; 80048; 80053; 84145; 85652; 87040; 87635; 93005; 96361; 96365; 96367; 96375; 96376; 97110; 97163; 97530; 99222; 99231; 99232; 99285; 72156; 72157; 73110; 81003; 81015; 83036; 83605; 83735; 84550; 85025; 86140; 87070; 87086; 87205; 89051; 93010; 99223; 99233; 99239; J0131; J2270; J3360; J3490; J7512

== ENCOUNTER 2021-02-13 16:58 | Outpatient (REF) | payer MEDICARE, SELFPAY ==
[2021-02-13 16:50] LABS: Bilirubin Negative (Negative); Blood Trace-lysed (Negative); Clarity Sl Cloudy (Clear); Glucose Negative (Negative); Ketones Negative (Negative); Leukocyte Esterase Small (Negative); Nitrite Positive (Negative); Specific Gravity 1.015 (1.005-1.025); Urobilinogen 0.2 EU/dL (Up TO 0.2); pH 7.5 (5-8)
[2021-02-13 17:03] LABS: Bacteria Packed HPF (Negative); C & S Indicated? Yes; Crystals Negative HPF (Negative); Epithelial Cells Negative HPF (Negative); Mucus Negative (Negative); RBC 0-2 HPF (0-2); WBC >50 HPF (0-5)
== END 2021-02-13 16:59 | disposition home or self-care (01) ==
LOC: NCHCN 16:58
PROVIDERS: PCP Nurse Practitioner Family; Visit Provider Nurse Practitioner Family
DX: N39.0 Urinary tract infection, site not specified (principal)
CPT/HCPCS: 87077; 81003; 81015; 87086; 87186

== ENCOUNTER → 2021-02-21 08:50 | Outpatient (BNVA) | payer MEDICARE, SELFPAY | PROVIDERS: PCP Nurse Practitioner Family; Referring Provider Nurse Practitioner Family; Visit Provider Urology | DX: N39.0 Urinary tract infection, site not specified (principal) | CPT/HCPCS: 51701; 99214 ==

== ENCOUNTER 2021-02-21 16:51 | Outpatient (REF) | payer MEDICARE, SELFPAY | END 2021-02-21 16:52 | disposition home or self-care (01) | LOC: LBN 16:51 | PROVIDERS: PCP Nurse Practitioner Family; Visit Provider Urology | DX: N39.0 Urinary tract infection, site not specified (principal); T83.511A Infection and inflammatory reaction due to indwelling urethral catheter, initial encounter | CPT/HCPCS: 87086 ==

== ENCOUNTER 2021-03-07 20:46 | Outpatient (REF) | payer MEDICARE, SELFPAY ==
[2021-03-07 15:48] LABS: Bilirubin Negative (Negative); Blood Small (Negative); Clarity Cloudy (Clear); Glucose Negative (Negative); Ketones Negative (Negative); Leukocyte Esterase Small (Negative); Nitrite Positive (Negative); Urobilinogen 0.2 EU/dL (Up TO 0.2)
[2021-03-07 15:56] LABS: Bacteria Packed HPF (Negative); C & S Indicated? Yes; WBC >50 HPF (0-5)
== END 2021-03-07 20:47 | disposition home or self-care (01) ==
LOC: LBN 20:46
PROVIDERS: PCP Nurse Practitioner Family; Visit Provider Urology
DX: N39.0 Urinary tract infection, site not specified (principal); R33.9 Retention of urine, unspecified; T83.511A Infection and inflammatory reaction due to indwelling urethral catheter, initial encounter
CPT/HCPCS: 87077; 81003; 81015; 87086; 87186

== ENCOUNTER 2021-04-14 03:36 | Outpatient (CLI) | payer MEDICARE, SELFPAY ==
[2021-04-14 15:28] LABS: Abs Immature Grans 0.05 10^3/uL (0.0-0.06); Absolute Basophil Count 0.03 10^3/uL (0.0-0.2); Absolute Lymphocyte Count 1.14 10^3/uL (1.2-3.4); Absolute Monocyte Count 0.82 10^3/uL (0.1-0.8); Basophils % 0.3; Eosinophils % 0.9; HCT 34.5 % (40.0-50.0); HGB 10.5 g/dL (13.5-17.5); Immature Grans % 0.5; Lymphocytes % 10.3; MCH 25.3 pg (27.0-33.0); MCHC 30.4 % (32.0-36.0); MCV 83.1 fL (80-95); MPV 10.2 fL (8.0-11.0); Monocytes % 7.4; Neutrophils % 80.6; Nucleated RBC 0 %; Platelet Count 326 10^3/uL (130-400); RBC 4.15 10^6/uL (4.36-5.78); RDW 16.2 % (11.8-14.1); RDW-SD 48.9 fL
[2021-04-14 15:29] LABS: Absolute Neutrophil Count 8.95 10^3/uL (1.2-6.7)
[2021-04-14 15:37] LABS: Magnesium 1.8 mg/dL (1.8-2.4)
[2021-04-14 15:41] LABS: ALT 29 U/L (16-63); AST 24 U/L (15-37); Albumin 2.8 g/dL (3.4-5.0); Alkaline Phosphatase 86 U/L (46-116); Anion Gap 8.8 mmol/L (3-11); BUN 27 mg/dL (7-18); Bilirubin, Total 0.6 mg/dL (0.2-1.0); CO2 24.2 mmol/L (21.0-32.0); CREATININE 1.5 mg/dL (0.70-1.30); Calcium 9.2 mg/dL (8.5-10.1); Chloride 105 mmol/L (98-107); Glucose 118 mg/dL (74-106); Potassium 4.2 mmol/L (3.5-5.1); Sodium 138 mmol/L (136-145)
== END 2021-04-14 03:37 | disposition home or self-care (01) ==
LOC: LBO 03:36
PROVIDERS: PCP Nurse Practitioner Family; Visit Provider Internal Medicine Medical Oncology
DX: C34.11 Malignant neoplasm of upper lobe, right bronchus or lung (principal)
CPT/HCPCS: 36415; 80053; 83735; 85025

== ENCOUNTER 2021-04-27 18:24 | Emergency (ER) | payer MEDICARE, SELFPAY ==
[2021-04-27] VITALS (30 sets, daily range): BP systolic 100–158; BP diastolic 47–90; PULSE 80–98; RESP 20–40; TEMP 36.3–36.4; O2SAT 91–100
--- NOTE | 2021-04-27 18:15 | RT.EKG_ITS ---
APPROVED REPORT Exam: Resting ECG Reason for Exam: sob Patient Location: E HR:97 bpm ECG Measurements Heart Rate 97 AXIS AL 175 P 39 QRSd 99 QRS 50 QT 342 T 4 QTc 434 Conclusion Sinus rhythm...normal P axis, V-rate 60- 99 Atrial premature complexes...SV complexes w/ short R-R intvls
--- NOTE | 2021-04-27 18:45 | DI.CT_ITS ---
Exam(s) CT CHEST PE CTA EXAM: CT CHEST PE CTA CLINICAL HISTORY: SOB, hx lung cancer, wait for CR. TECHNIQUE: Imaging Protocol: Axial CT angiography was performed with multi-slice acquisition and mu lti-planar and/or 3D reconstructions. CONTRAST MATERIAL: Intravenous: Omnipaque 350 Contrast volume: 100 cc COMPARISON: CR XR CHEST 2V PA LATERAL from 01/23/[address] CHEST PE ABD PELVIS W from 01/19/2021 FINDINGS: Pulmonary Arteries: No evidence of filling defect to suggest pulmonary emboli. Tracheobronchial tree: Patent where visualized. Mediastinum and Gabi: No dominant adenopathy Pulmonary parenchyma: Evaluation limited by respiratory motion and expiratory changes. Status post right upper lobectomy. 7 millimeter nodule right middle lobe increasing from previous exam. Multiple additional nodules seen in the right lower lobe. Pleura: Small right pleural effusion, similar to previous exam. New left pleural effusion with adjac ent atelectasis. No pneumothorax. Heart: Large pericardial effusion, measuring up to 3.5 cm in thickness posterolateral to the left richard tricle. The heart mildly dilated. Moderate coronary artery calcifications are seen. Aorta: Stable dilatation of the ascending aorta. Atherosclerotic changes. No dissection Upper abdomen: Artifact related to arm positioning. Stable low-density lesion in the liver. Gallst ones. No gallbladder wall thickening. Bones: Postsurgical changes right posterior ribs. Degenerative changes in the spine. Stable sclerot ic lesion T5. IMPRESSION: Status post right upper lobectomy. No evidence of pulmonary embolism. Large pericardial effusion. N ew left pleural effusion. Stable small right pleural effusion. Increased size of right middle no lo be pulmonary nodule. Multiple nodules in the right lower lobe could represent metastatic disease. RADIATION DOSE DELIVERED: 652.74mGy.cm Total DLP DATA REPOSITORY: All CT scans at this facility are submitted to the National Radiology Data Registry (NRDR) Dose Index Registry (DIR) with the [employer] (ACR). RADIATION OPTIMIZATION: All CT scans at this facility use at least one of these dose optimization te chniques: automated exposure control; mA and/or kV adjustment per patient size (includes targeted exa ms where dose is matched to clinical indication); or iterative reconstruction.
--- NOTE | 2021-04-27 18:54 | W.ED.GENAD ---
Discharge Plan Disposition Patient Disposition: [facility] Condition: Serious Discharge Details Clinical Impression: Acute pericardial effusion, Chronic pleural effusion, Acute respiratory failure with hypoxemia, Chest pain Primary Care Provider: Lucinda Mcgowan ED Provider: Haris Levi Home Meds and New Rx's Prescriptions: No Action Levemir U-100 Insulin 100 UNIT/1 ML solution 20 unit SQ BID RF: 0 albuterol sulfate [Proventil HFA] 6.7 GM HFA aerosol inhaler 2 puff Inhalation .Q6HRS RF: 0 albuterol sulfate 2.5 MG/3 ML solution for nebulization 3 ml Inhalation QID PRN PRN (Reason: Dyspnea) Qty: 30 RF: 0 aspirin [Aspir-81] 81 mg Tablet,Delayed Release (Dr/Ec) 81 mg PO DAILY RF: 0 lidocaine 5 % Adhesive Patch,Medicated 2 patch topical Q24H Qty: 60 RF: 0 Medical Decision Making <Jose Vasquez MD - Last Filed: 04/27/21 19:08> 70-year-old male presents from home with his . He has a history of lung cancer as well as deep vein thrombus for which she had a Worthington filter and was on Eliquis. Patient's Noelle filter was recently removed and he was taken off of his anticoagulation. He now presents to the ER complaining of weeks of progressive shortness of breath that has now become worse with exertion, worse lying flat, and today he has been short of breath while at rest. He arrives to the ER tachypneic and hypoxic to 90% on room air. He is placed on supplemental oxygen. IV access established. Differential diagnosis would include pulmonary embolism, progressive carcinoma, fluid overload, [place] or pneumothorax, must exclude pneumonitis. <Haris Levi DO - Last Filed: 04/28/21 03:04> Case was signed out to me by my colleague Dr. Jose Vasquez, please refer to his HPI, physical exam, assessment and plan. Time of signout we are pending CT imaging and labs. CT imaging demonstrates evidence of a new moderate pericardial effusion, chronic unchanged loculated pleural effusion, new lung nodule concerning for malignancy, and chronic unchanged linear and bandlike opacities in the right base. Labs show evidence of mild white count of 13 but the patient is afebrile. proBNP is elevated at 1100 (normal for him is 50), Covid test is negative. I did not personally reassess the patient. Patient is on 2 to 4 L of high flow nasal cannula, oxygen saturations are at 96%, however the patient is notably tachypneic, and feels like he cannot breathe subjectively. Patient is breathing at 30 to 40-minute currently. Aside for diminished breath sounds throughout he does not demonstrate any other significant breath sound abnormalities currently. Suspect that there is a anxiety linked component to his current tachypnea, however the patient does state that he feels like he is starting to fatigue. Discussed risks and benefits of Ativan versus CPAP, we did decide to start CPAP on the patient at 5 PEEP and 25% FiO2. After placement of this the patient felt significantly better, and much more relaxed. Oxygenation remained stable. Patient felt notable improvement after CPAP administration. Bedside ultrasound was performed, and a moderate pericardial effusion is certainly noted. Does not appear to be signs of tamponade on bedside echo, and clinically I do not see clinical evidence of cardiac tamponade with no signs of hypotension or significant tachycardia at this time. I am uncertain as to what was causing the patient's initial hypoxemia, CTA was negative for pulmonary embolism, no new infiltrate, and the pleural effusion appears to be chronic rather than acute per radiology. While the pericardial effusion certainly would not cause a hypoxemia I do suspect that it was causing the chest tightness sensation and a sensation of difficulty breathing. Additionally with the size of his heart and the pericardial effusion in general in conjunction with the pleural effusion he certainly has a diminished total lung volume for which to utilize. With the patient's comorbidities, moderate pericardial effusion, respiratory distress and hypoxemia I do feel that the patient would be better suited for [facility] as we have no cardiothoracic's available at this time. We will reach out to [facility] for transfer. 2:18 AM Case was discussed with Dr. Parks of cardiology, at this time she feels that the patient does not need cardiac management and would be better fit with cardiothoracic's or medicine management at this time. I did discuss the case with Dr. Johnson of medicine, and he is uncertain of the placement of the patient for MedSurg/stepdown/ICU based on his complex clinical picture. The case was then discussed with the ED doctor Dr. Morrissey, after discussion of the case, review of the images and clinical disposition he has agreed to accept the patient in transfer. Patient will be transferred via [facility] for further medical management at [facility]. I have extensively reviewed the treatment plan with the patient. I have addressed all patient concerns at this time. I have also discussed the plan with the admitting physician and they agree with the current assessment and plan and have agreed to assume responsibility for the patient. All parties demonstrate verbal understanding and agreement with our assessment and plan at this time. The documentation in this chart was dictated using [employer] dictation software. Please excuse any dictation errors. 2:30 AM Just prior to transport patient was starting to have pain on his nose and face secondary to the CPAP. CPAP was halted and the patient was transitioned to nasal cannula 2 to 4 L. Patient appears stable at this time. [facility] if the patient's work of breathing return. Additionally ABG was performed, pH is 7.44, PCO2 35, PO2 of 73, lactate is 0.7. At time of transfer the patient was reassessed and continued to demonstrate current medical stability. No signs of acute respiratory distress requiring intubation, hemodynamic instability requiring pressor support, or rapidly declining mental status. The patient is stable for transport. FINDINGS: Pulmonary arteries: Unremarkable. No evidence of pulmonary embolus to the segmental level. Aorta: Mild descending thoracic aneurysmal dilatation similar to prior. Lungs: Interval increase in size of a nodule in the right middle lobe now measuring 8 mm compared with 3 mm on prior. Chronic appearing linear and bandlike opacities in the right base. There are also several subcentimeter nodules in the right base that were not present on prior. Pleural spaces: There is a mildly loculated appearing small right pleural effusion and is similar to prior. New small layering left effusion. Heart: Moderate pericardial effusion. Coronary artery calcifications. Mediastinal space: Postsurgical changes in the right hilum. Soft tissue prominence in the right hilum is similar to prior. Lymph nodes: Unremarkable. No enlarged lymph nodes. Liver: Hepatic hypodensity was present on comparison from January. Gallbladder and bile ducts: Gallstones. Bones/joints: Unremarkable. No acute fracture. Soft tissues: Unremarkable. IMPRESSION: 1. New moderate pericardial effusion 2. Increased right lung pulmonary nodules worrisome for malignancy 3. New small left pleural effusion Thank you for allowing us to participate in the care of your patient. Dictated and Authenticated by: Pepe Mcgowan MD 04/27/2021 11:20 PM Eastern Time ([place] & [place]) HPI <Jose Vasquez MD - Last Filed: 04/27/21 19:08> General Mode of arrival: wheelchair. Date/Time Provider Initiated Documentation: 04/27/21 18:35. Limitations to Documentation: no limitations. Information obtained by: patient and family. History of Present Illness 70 year old M presents to the emergency department with the chief complaint of Short of breath, described as moderate and severe, and is localized to the chest. Patient reports no radiation. Patient started experiencing this day(s) and it has been intermittent. Rest improves symptom(s), Movement worsens symptoms and Other factors that worsen symptoms (Lying flat) . Patient notes chest pain, shortness of breath and weakness; denies syncope. Patient did receive the following treatments prior to arrival, none Related Data Home Medications Medication Instructions Recorded Confirmed albuterol sulfate 3 ml INHALATION QID PRN PRN #30 01/27/16 04/27/21 vial albuterol sulfate [Proventil HFA] 2 puff INHALATION .Q6HRS 01/27/16 04/27/21 Levemir U-100 Insulin 20 unit SQ BID 02/09/18 04/27/21 lidocaine 2 patch TOPICAL Q24H #60 ea 01/23/21 04/27/21 aspirin [Aspir-81] 81 mg PO DAILY 04/27/21 04/27/21 Previous Rx's Medication Instructions Recorded albuterol sulfate 3 ml INHALATION QID PRN PRN #30 01/27/16 vial lidocaine 2 patch TOPICAL Q24H #60 ea 01/23/21 Allergies Allergy/AdvReac Type Severity Reaction Status Date / Time tramadol AdvReac Other (See Unverified 04/27/21 19:40 Comment) General Stated Complaint: SOB ANNAMARIA: 2 Review of Systems <Jose Vasquez MD - Last Filed: 04/27/21 19:08> Narrative: Recently stopped taking his Eliquis. Had a Worthington filter removed. No recent illness and denies cough, fever, nausea or vomiting. Does endorse some left-sided chest discomfort with deep breath. 8 systems reviewed and otherwise negative PFSH <Jose Vasquez MD - Last Filed: 04/27/21 19:08> Medical History CKD (chronic kidney disease) DVT (deep venous thrombosis) S/p IVC filter Hx of traumatic brain injury Insulin dependent diabetes mellitus Lung cancer Multinodular thyroid Urinary retention UTI (urinary tract infection) Surgical History History of lobectomy of lung Social History Smoking/Tobacco Use Status: Former Tobacco Use Smoking risk assessment performed?: Yes Alcohol Intake: current Alcohol Intake frequency: holidays/special occasions only Drug use: Occasionally Substance use type: marijuana Details: pt states he has medical marijuana Do you feel safe at home: Yes Do you feel safe in your relationship?: Yes Exam <Jose Vasquez MD - Last Filed: 04/27/21 19:08> Narrative Exam Narrative: GEN: awake, alert, oriented 3. Pleasant, well groomed, interactive. HEAD: Normocephalic, atraumatic ENT: Mucous membranes moist, oropharynx unremarkable, External ear exam unremarkable EYES: PERRL, EOMI NECK: Full ROM, no ISHAN, no menigismus CHEST/RESP: Nontender, clear to auscultation bilateral, tachypneic with increased work of breathing CARDIOVASCULAR: Regular and tachycardic, no murmur, rub cole. 2+ Rad pulse bilateral ABDOMEN: Soft, nontender, no mass. +Bowel sounds EXT: Full ROM, trace symmetric pretibial bilateral edema, no rash Neuro: Grossly normal neurologic exam, conversant, interactive. Psych: Speech fluent, thoughts congruent, affect normal Course <Jose Vasquez MD - Last Filed: 04/27/21 19:08> Vital Signs Vital signs: Vital Signs Temperature 36.3 C L 04/27/21 18:34 Pulse 98 H 04/27/21 18:34 Respiratory Rate 36 H 04/27/21 18:34 Blood Pressure 158/79 H 04/27/21 18:34 Pulse Oximetry 91 L 04/27/21 18:34 Temperature 36.3 C L 04/27/21 18:34 Temperature Source Temporal Artery Scan 04/27/21 18:34 Pulse 98 H 04/27/21 18:34 Respiratory Rate 36 H 04/27/21 18:34 Blood Pressure 158/79 H 04/27/21 18:34 Blood Pressure Position Supine 04/27/21 18:34 Pulse Oximetry 91 L 04/27/21 18:34 Oxygen Delivery Method Room Air 04/27/21 18:34 Oxygen Flow Rate 0 04/27/21 18:34 Pain Level 0 04/27/21 18:34 <Haris Levi DO - Last Filed: 04/28/21 03:04> Critical Care Time Critical Care Time: Yes Total Critical Care Time: 45 Attestation: Upon my evaluation, this patient had a high probability of imminent or life-threatening deterioration, which required my direct attention, intervention, and personal management. I have personally provided 45 minutes of critical care time exclusive of time spent on separately billable procedures. Time includes review of laboratory data, radiology results, discussion with consultants, and monitoring for potential decompensation. Interventions were performed as documented. Sign Out <Jose Vasquez MD - Last Filed: 04/27/21 19:08> Sign Out Data: Sign Out Comment: Off elijesiis, lung cancer, SOB. Followup CT, labs Last updated by Jose Vasquez MD at 04/27/21 19:45
[2021-04-27 19:35] LABS: Source Nasal/Nares
[2021-04-27 20:27] LABS: COVID-19 PCR Negative (Negative)
[2021-04-27 21:04] LABS: Magnesium 2.3 mg/dL (1.8-2.4)
[2021-04-27 21:13] LABS: Abs Immature Grans 0.06 10^3/uL (0.0-0.06); Absolute Basophil Count 0.03 10^3/uL (0.0-0.2); Absolute Eosinophil Count 0.08 10^3/uL (0.0-0.7); Absolute Lymphocyte Count 0.84 10^3/uL (1.2-3.4); Basophils % 0.2; Eosinophils % 0.6; HCT 33.4 % (40.0-50.0); HGB 10.2 g/dL (13.5-17.5); Immature Grans % 0.4; Lymphocytes % 6.3; MCH 24.5 pg (27.0-33.0); MCHC 30.5 % (32.0-36.0); MCV 80.3 fL (80-95); MPV 9.7 fL (8.0-11.0); Monocytes % 9.7; Neutrophils % 82.8; Nucleated RBC 0 %; Platelet Count 328 10^3/uL (130-400); RBC 4.16 10^6/uL (4.36-5.78); RDW-SD 46.9 fL; WBC 13.41 10^3/uL (4.4-10.8)
[2021-04-27 21:14] LABS: ALT 23 U/L (16-63); AST 17 U/L (15-37); Albumin 2.9 g/dL (3.4-5.0); Alkaline Phosphatase 96 U/L (46-116); Anion Gap 9.1 mmol/L (3-11); BUN 28 mg/dL (7-18); Bilirubin, Total 0.6 mg/dL (0.2-1.0); CO2 23.9 mmol/L (21.0-32.0); CREATININE 1.5 mg/dL (0.70-1.30); Calcium 9.5 mg/dL (8.5-10.1); Chloride 101 mmol/L (98-107); Glucose 137 mg/dL (74-106); NT-proBNP 1176 pg/mL (<300); Sodium 134 mmol/L (136-145); Total Protein 8.7 g/dL (6.4-8.2); Troponin I < 0.05 ng/mL (<0.06)
[2021-04-27 21:33] LABS: INR 1.1 (0.9-1.1); PTT Activated 28.9 sec (21.0-27.5); Prothrombin Time 11.4 sec (9.3-11.0)
[2021-04-27 21:49] LABS: D-Dimer > 7500 ng/mlFEU (<500)
[2021-04-27] MEDS: Omnipaque 350 MG/ML 100 ML BTL IJ (21:54)
[2021-04-27] MEDS: Normal Saline Flush 10 ML SYR IVP (22:22)
--- NOTE | 2021-04-27 23:21 | DI.VRAD_ITS ---
PROCEDURE INFORMATION: Exam: CTA Chest With Contrast Exam date and time: 04/27/2021 6:55 PM Age: 70 years old Clinical indication: Shortness of breath; Prior surgery; Surgery date: 6+ months; Surgery type: Lobectomy; Patient HX: SOB, HX lung cancer TECHNIQUE: Imaging protocol: Computed tomographic angiography of the chest with contrast. 3D rendering (Not supervised by radiologist): MIP and/or 3D reconstructed images were created by the technologist. Radiation optimization: All CT scans at this facility use at least one of these dose optimization techniques: automated exposure control; mA and/or kV adjustment per patient size (includes targeted exams where dose is matched to clinical indication); or iterative reconstruction. Contrast material: OMNIPAQUE 350; Contrast volume: 100 ml; Contrast route: INTRAVENOUS (IV); COMPARISON: CT CHEST PE ABD PELVIS W 01/19/2021 3:07 PM FINDINGS: Pulmonary arteries: Unremarkable. No evidence of pulmonary embolus to the segmental level. Aorta: Mild descending thoracic aneurysmal dilatation similar to prior. Lungs: Interval increase in size of a nodule in the right middle lobe now measuring 8 mm compared with 3 mm on prior. Chronic appearing linear and bandlike opacities in the right base. There are also several subcentimeter nodules in the right base that were not present on prior. Pleural spaces: There is a mildly loculated appearing small right pleural effusion and is similar to prior. New small layering left effusion. Heart: Moderate pericardial effusion. Coronary artery calcifications. Mediastinal space: Postsurgical changes in the right hilum. Soft tissue prominence in the right hilum is similar to prior. Lymph nodes: Unremarkable. No enlarged lymph nodes. Liver: Hepatic hypodensity was present on comparison from January. Gallbladder and bile ducts: Gallstones. Bones/joints: Unremarkable. No acute fracture. Soft tissues: Unremarkable. IMPRESSION: 1. New moderate pericardial effusion 2. Increased right lung pulmonary nodules worrisome for malignancy 3. New small left pleural effusion Dictated and Authenticated by: Pepe Mcgowan MD. Ordering:IVORY Garcia MD
[2021-04-28] VITALS (27 sets, daily range): BP systolic 98–124; BP diastolic 54–85; PULSE 75–88; RESP 19–36; O2SAT 94–98
[2021-04-28 00:16] LABS: Troponin I < 0.05 ng/mL (<0.06)
[2021-04-28 02:02] LABS: Lactate 0.7 mmol/L (0.6-1.4)
[2021-04-28 02:06] LABS: FIO2 25 %; Site Right Radial; pCO2 36 mmHg (35-45); pH 7.45 (7.35-7.45); pO2 74 mmHg (80-105); sO2 96 % (95-98); tCO2 23 mmol/L (23-27)
[2021-04-28 02:07] LABS: BE 1 mmol/L (-2-3); FIO2L CPAP 5 L; HCO3 25 mmol/L (22-26)
--- NOTE | 2021-04-28 08:59 | NUR.NOTE ---
Nursing Note: Patient transferred to [facility] yesterday. Faxed to [facility] ED the COVID result today. Veronica Stearns .
== END 2021-04-28 02:42 | disposition short-term general hospital (02) ==
PROVIDERS: Emergency Medicine; Emergency Provider Student in an Organized Health Care Education/Training Program; PCP Nurse Practitioner Family
DX: I30.9 Acute pericarditis, unspecified (principal); J90 Pleural effusion, not elsewhere classified; J96.01 Acute respiratory failure with hypoxia; R07.9 Chest pain, unspecified; Z87.891 Personal history of nicotine dependence; R06.02 Shortness of breath
CPT/HCPCS: 36415; 71275; 80053; 82805; 87635; 93005; 99291; 83605; 83735; 83880; 84484; 85025; 85379; 85610; 85730; 93010; 94660; J3490

== ENCOUNTER 2021-05-09 13:00 | Outpatient (REF) | payer MEDICARE, SELFPAY ==
[2021-05-09 13:26] LABS: Abs Immature Grans 0.08 10^3/uL (0.0-0.06); Absolute Basophil Count 0.04 10^3/uL (0.0-0.2); Absolute Eosinophil Count 0.17 10^3/uL (0.0-0.7); Absolute Lymphocyte Count 1.99 10^3/uL (1.2-3.4); Absolute Monocyte Count 0.93 10^3/uL (0.1-0.8); Absolute Neutrophil Count 6.53 10^3/uL (1.2-6.7); Basophils % 0.4; Eosinophils % 1.7; HGB 11.4 g/dL (13.5-17.5); Immature Grans % 0.8; Lymphocytes % 20.4; MCH 24.6 pg (27.0-33.0); MCHC 29.2 % (32.0-36.0); MCV 84.2 fL (80-95); MPV 10.3 fL (8.0-11.0); Monocytes % 9.5; Neutrophils % 67.2; Nucleated RBC 0 %; Platelet Count 277 10^3/uL (130-400); RBC 4.63 10^6/uL (4.36-5.78); RDW 16.6 % (11.8-14.1); RDW-SD 50.2 fL; WBC 9.74 10^3/uL (4.4-10.8)
[2021-05-09 13:48] LABS: Anion Gap 6.8 mmol/L (3-11); BUN 28 mg/dL (7-18); CO2 28.2 mmol/L (21.0-32.0); CREATININE 1.2 mg/dL (0.70-1.30); Calcium 9.2 mg/dL (8.5-10.1); Chloride 108 mmol/L (98-107); Estimated GFR 59.51 (mL/min/1.73m2); Glucose 86 mg/dL (74-106); Potassium 4.9 mmol/L (3.5-5.1); Sodium 143 mmol/L (136-145)
[2021-05-09 14:01] LABS: Hemoglobin A1C 6.1 % (<5.7)
== END 2021-05-09 13:01 | disposition home or self-care (01) ==
LOC: NCHCN 13:00
PROVIDERS: PCP Nurse Practitioner Family; Visit Provider Nurse Practitioner Family
DX: Z00.00 Encounter for general adult medical examination without abnormal findings (principal)
CPT/HCPCS: 80048; 83036; 85025

== ENCOUNTER 2021-05-22 01:53 | Outpatient (CLI) | payer MEDICARE, SELFPAY ==
--- NOTE | 2021-05-22 | DI.US_ITS ---
Exam(s) US THYROID EXAM: US THYROID CLINICAL HISTORY: MULTINODULAR GOITER,E04.2. TECHNIQUE: Ultrasound thyroid performed using standard protocol. COMPARISON: No exams were available for comparison FINDINGS: ISTHMUS: 9 mm RIGHT LOBE: Size: 5.6 cc by 2.9 AP by 2.5 transverse cm Echogenicity: Normal. Vascularity: Normal. Nodules: There are multiple nodules present. There is a 1.9 x 1.2 x 1.2 cm mixed cystic and solid no dule in the upper pole of the right lobe. It is hypoechoic with no echogenic foci. It is consistent with a TIRADS level 3 nodule. There is a 1.7 x 1.5 x 1.6 cm solid hyperechoic nodule without echoge pio foci in the upper pole of the right lobe. This is consistent with a TIRADS level 3 nodule. LEFT LOBE: Size: 5.7 cc by 2.6 AP by 2.9 transverse cm Echogenicity: Normal. Vascularity: Normal. Nodules: There are several nodules seen within the left lobe. There is a 2.3 x 1.5 x 2.3 cm mixed cy stic and solid nodule in the midpole. It is isoechoic without echogenic foci. It is consistent with a TIRADS level 2 nodule. There is a 2.3 x 1.9 x 1.9 cm solid hyperechoic nodule in the inferior teodora e without echogenic foci internally. This is consistent with a TIRADS level 3 nodule. OTHER FINDINGS: No suspicious lymph nodes. IMPRESSION: Multinodular thyroid gland. No suspicious nodules. DATA REPOSITORY:
== END 2021-05-22 02:13 ==
PROVIDERS: PCP Nurse Practitioner Family; Visit Provider Otolaryngology
DX: E04.2 Nontoxic multinodular goiter (principal)
CPT/HCPCS: 76536

== ENCOUNTER 2021-05-29 01:36 | Outpatient (CLI) | payer MEDICARE, SELFPAY ==
--- NOTE | 2021-05-29 12:53 | DI.US_ITS ---
APPROVED REPORT EXAM: Comprehensive 2D, Doppler, and color-flow Echocardiogram Patient Location: Out-Patient French Binder: Leah Rdz RDCS (AE) Other Information Study Quality: Fair. Technically limited study due to body habitus, inability to position patient. Conclusion Technically difficult study The left ventricle appeared normal in size and wall thickness with normal systolic function, EF 60%. No segmental wall motion abnormalities were identified The right ventricle appeared mildly dilated and mildly hypocontractile Both atria were normal in size Aortic valve is sclerotic without stenosis or regurgitation. Number of aortic valve leaflets could n ot be accurately determined Normal mitral valve with trace regurgitation Normal tricuspid valve with trace to mild regurgitation. Normal estimated right ventricular systolic pressure, 27.3 mmHg Dilated aortic root measuring 4.2 cm Wall motion Left Ventricle The left ventricle is normal size. The overall left ventricular systolic function appears normal. The re is normal left ventricular wall thickness. There is no ventricular septal defect visualized. LVEF is 59%. Right Ventricle Right ventricle is mildly dilated. Right ventricle is hypokinetic. The RVSP is 27.3mmHg. Atria The left atrium size is normal. The right atrium size is normal. The interatrial septum is intact wit h no evidence for an atrial septal defect. Aortic Valve The Aortic valve is sclerotic. Number of aortic valve leaflets could not be assessed. There is no aor tic valvular stenosis. No aortic regurgitation is present. Mitral Valve The mitral valve is normal in structure. No evidence of mitral valve stenosis. Trace mitral regurgita tion. Tricuspid Valve The tricuspid valve is normal in structure. There is no tricuspid valve stenosis. Trace to mild tricu spid regurgitation. Pulmonic Valve Pulmonic valve is not well visualized. There is no pulmonic valvular stenosis. There is no pulmonic v alvular regurgitation. Great Vessels Aortic root is moderately dilated. Ascending aorta is not well visualized. Aortic arch is normal in c aliber. IVC is normal in size and collapses >50% with inspiration. Pericardium There is no pericardial effusion. 2D Dimensions Ao Root d 4.20 cm M: 3.1 - 3.7 LV Vol A2C d MOD 81.8 mL RA Area A4C 15.63 cm2 LV Vol A4C d MOD 104.2 mL RA Vol/ BSA A4C s A-L 17.1 mL/m2 LA vol/ BSA A4C s A-L 21.7 mL/m2 LVEF (Hernández's) 59.69 % M: 52 - 72 LA Area A4C s MOD 16.71 cm2 LV Volume 68.48 mL M: 62 - 150 LV EF A4C MOD 59.2 % LV Volume Index 31.70 mL/m2 M: 34 - 74 LV EF A2C MOD 59.6 % LV Vol Biplane MOD 93.7 mL LV EF Biplane MOD 59.7 % SV 55.93 mL SV Index 25.83 mL/m2 M-Mode TAPSE 2.31 cm (M/F) >1.7 LV Diastology MV E' medial 0.041 (>0.07 m/s) E/A Ratio 1.3 LV E/e MED 16.10 (<14) MV E Vmax 0.66 (0.4-1.3 m/s) MV E' lateral 0.049 (>0.1 m/s) MV A Vmax 0.50 (0.4-1.3 m/s) LV E/e LAT 13.45 (<14) MV E/A Ratio 1.21 MV E/E' medial 16.14 MV E/E' lateral 13.45 Aortic Valve LVOT Area 4.04 cm2 AoV Area Vmax 3.70 cm2 LVOT Vmax 1.13 m/s AoV Area/ BSA (Vmax) 1.71 cm2/m2 LVOT Mean Loc. 0.74 m/s MANUEL Mean Loc. 3.61 cm2 LVOT Peak Grad 5.1 mmHg MANUEL Mean Loc. Index 1.67 cm2/m2 LVOT Mean Grad 2.5 mmHg LVOT VTI 0.234 m LVOT Diam s 2.25 cm AoV Vmax 1.24 m/s Velocity Ratio 0.91 AoV Mean Loc. 0.83 m/s AoV Peak Grad 6.1 mmHg LVOT SV 94.68 mL AoV Mean Grad 3.3 mmHg AoV VTI 0.232 m AoV Area VTI 4.08 cm2 AoV Area/ BSA (VTI) 1.88 cm/m2 Mitral Valve MV DT 329 (160-240 msec) MV PHT 96 msec MV Area PHT 2.30 cm2 MV VTI 0.364 m MV Area VTI 2.60 (4.0-6.0 cm2) Pulmonary Valve PV Vmax 1.05 (0.5-1.5 m/s) RVOT Peak Gr. 0.98 mmHg PV Peak Grad 4.4 mmHg RVOT Mean Gr. 0.55 mmHg PV Mean Grad 3.0 mmHg RVOT VTI 0.125 m PV VTI 0.240 m RVOT Vmax 0.50 m/s Tricuspid Valve TR Peak Grad 24.2 mmHg TR Vmax 2.46 m/s RA Pressure 3.00 mmHg RVSP (TR) 27.3 mmHg
== END 2021-05-29 01:56 ==
PROVIDERS: PCP Nurse Practitioner Family; Visit Provider Internal Medicine Medical Oncology
DX: I31.3 Pericardial effusion (noninflammatory) (principal); C34.11 Malignant neoplasm of upper lobe, right bronchus or lung; R93.9 Diagnostic imaging inconclusive due to excess body fat of patient; I08.2 Rheumatic disorders of both aortic and tricuspid valves; I77.810 Thoracic aortic ectasia
CPT/HCPCS: 93306

== ENCOUNTER 2021-06-23 04:02 | Outpatient (CLI) | payer MEDICARE, SELFPAY ==
[2021-06-23 13:17] LABS: Abs Immature Grans 0.04 10^3/uL (0.0-0.06); Absolute Basophil Count 0.03 10^3/uL (0.0-0.2); Absolute Eosinophil Count 0.35 10^3/uL (0.0-0.7); Absolute Lymphocyte Count 1.32 10^3/uL (1.2-3.4); Absolute Monocyte Count 0.71 10^3/uL (0.1-0.8); Absolute Neutrophil Count 5.03 10^3/uL (1.2-6.7); Basophils % 0.4; Eosinophils % 4.7; HCT 37.8 % (40.0-50.0); Immature Grans % 0.5; Lymphocytes % 17.6; MCH 25.6 pg (27.0-33.0); MCHC 31.7 % (32.0-36.0); MCV 80.8 fL (80-95); MPV 10.5 fL (8.0-11.0); Monocytes % 9.5; Neutrophils % 67.3; Nucleated RBC 0 %; Platelet Count 190 10^3/uL (130-400); RBC 4.68 10^6/uL (4.36-5.78); RDW 16.7 % (11.8-14.1); RDW-SD 48.3 fL; WBC 7.48 10^3/uL (4.4-10.8)
[2021-06-23 13:29] LABS: ALT 17 U/L (16-63); AST 17 U/L (15-37); Albumin 3.3 g/dL (3.4-5.0); Alkaline Phosphatase 84 U/L (46-116); Anion Gap 6.3 mmol/L (3-11); BUN 22 mg/dL (7-18); Bilirubin, Total 0.6 mg/dL (0.2-1.0); CO2 28.7 mmol/L (21.0-32.0); CREATININE 1.2 mg/dL (0.70-1.30); Calcium 9.1 mg/dL (8.5-10.1); Chloride 106 mmol/L (98-107); Estimated GFR 59.51 (mL/min/1.73m2); Glucose 100 mg/dL (74-106); Magnesium 1.9 mg/dL (1.8-2.4); Potassium 4.6 mmol/L (3.5-5.1); Sodium 141 mmol/L (136-145); Total Protein 7.7 g/dL (6.4-8.2)
== END 2021-06-23 04:03 | disposition home or self-care (01) ==
LOC: LBO 04:02
PROVIDERS: PCP Nurse Practitioner Family; Visit Provider Internal Medicine Medical Oncology
DX: C34.11 Malignant neoplasm of upper lobe, right bronchus or lung (principal)
CPT/HCPCS: 36415; 80053; 83735; 85025

== ENCOUNTER 2021-08-22 00:26 | Outpatient (CLI) | payer MEDICARE, SELFPAY ==
--- NOTE | 2021-08-22 07:45 | DI.US_ITS ---
Exam(s) US RENAL EXAM: US RENAL CLINICAL HISTORY: Monitor known renal mass,n28.89. TECHNIQUE: Thorpe scale, color and spectral Doppler were used. COMPARISON: CT CT CHEST PE ABD PELVIS W from 01/19/2021 US US RENAL from 01/20/2021 FINDINGS: Renal size in cm: Right: 12.9. Left: 11.1. Echogenicity: Normal. Hydronephrosis: No. Cyst or mass: Stable bilateral renal cysts. There is a 1 cm simple cyst in the superior pole of the right kidney. There is a 1 cm exophytic simple cyst in the midpole of the left kidney. There is a c omplex cystic lesion seen in the superior pole of the left kidney measuring 3.9 x 2.8 x 2.8 cm. It c ontains more internal echoes on the current examination than the prior from 01/20/2021. No internal bl ood flow is seen. Nephrolithiasis: No. Other findings: None. Bladder:Grossly unremarkable, however, the urinary bladder is incompletely evaluated sonographically due to its inadequate preparation. Ureteral jets: Right: Not visualized on this examination. Left: Not visualized on this examination. Prevoid vol:68 cc Renal color flow: Symmetric and within normal limits. IMPRESSION: 1. 3.9 cm complex cystic lesion in the superior pole of the left kidney. It appears more heterogeneo us on the current examination when compared to the prior examination. MRI of the kidney is recommend ed for further evaluation. 2. Bilateral renal cysts. DATA REPOSITORY:
== END 2021-08-22 00:46 ==
PROVIDERS: PCP Nurse Practitioner Family; Visit Provider Urology
DX: N28.89 Other specified disorders of kidney and ureter (principal); N28.1 Cyst of kidney, acquired
CPT/HCPCS: 76770

== ENCOUNTER → 2021-09-02 14:50 | Outpatient (BNVA) | payer MEDICARE, SELFPAY | PROVIDERS: PCP Nurse Practitioner Family; Referring Provider Nurse Practitioner Family; Visit Provider Nurse Practitioner Gerontology | DX: N28.1 Cyst of kidney, acquired (principal); Z71.2 Person consulting for explanation of examination or test findings | CPT/HCPCS: 99213 ==

== ENCOUNTER 2021-11-14 02:34 | Outpatient (CLI) | payer MEDICARE, SELFPAY ==
[2021-11-14 11:47] LABS: Abs Immature Grans 0.02 10^3/uL (0.0-0.06); Absolute Basophil Count 0.05 10^3/uL (0.0-0.2); Absolute Eosinophil Count 0.22 10^3/uL (0.0-0.7); Absolute Lymphocyte Count 1.42 10^3/uL (1.2-3.4); Absolute Monocyte Count 0.72 10^3/uL (0.1-0.8); Absolute Neutrophil Count 4.93 10^3/uL (1.2-6.7); Basophils % 0.7; HCT 45.2 % (40.0-50.0); HGB 13.5 g/dL (13.5-17.5); Immature Grans % 0.3; Lymphocytes % 19.3; MCH 25.3 pg (27.0-33.0); MCHC 29.9 % (32.0-36.0); MCV 84.8 fL (80-95); MPV 10.1 fL (8.0-11.0); Monocytes % 9.8; Neutrophils % 66.9; Nucleated RBC 0 %; Platelet Count 239 10^3/uL (130-400); RBC 5.33 10^6/uL (4.36-5.78); RDW 15.1 % (11.8-14.1); RDW-SD 46.7 fL; WBC 7.36 10^3/uL (4.4-10.8)
[2021-11-14 11:59] LABS: ALT 20 U/L (16-63); AST 11 U/L (15-37); Albumin 3.4 g/dL (3.4-5.0); Alkaline Phosphatase 80 U/L (46-116); Anion Gap 7.1 mmol/L (3-11); BUN 26 mg/dL (7-18); Bilirubin, Total 0.4 mg/dL (0.2-1.0); CO2 27.9 mmol/L (21.0-32.0); CREATININE 1.4 mg/dL (0.70-1.30); Calcium 9.1 mg/dL (8.5-10.1); Chloride 103 mmol/L (98-107); Estimated GFR 49.68 (mL/min/1.73m2); Glucose 99 mg/dL (74-106); Potassium 5.1 mmol/L (3.5-5.1); Sodium 138 mmol/L (136-145)
== END 2021-11-14 02:35 | disposition home or self-care (01) ==
PROVIDERS: PCP Nurse Practitioner Family; Visit Provider Internal Medicine Medical Oncology
DX: C34.11 Malignant neoplasm of upper lobe, right bronchus or lung (principal)
CPT/HCPCS: 36415; 80053; 85025

== ENCOUNTER → 2021-12-04 01:15 | Outpatient (CLI) | payer MEDICARE, SELFPAY ==
[2021-12-04] MEDS: Omnipaque 350 MG/ML 100 ML BTL IJ (09:09)
--- NOTE | 2021-12-04 09:10 | DI.CT_ITS ---
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 TECHNIQUE: Multi planar reconstructions were performed. CONTRAST MATERIAL: Omnipaque 350; 75 cc COMPARISON: CT CT CHEST PE CTA from 04/27/2021 FINDINGS: CHEST: LUNGS: Again noted is evidence of previous right lung surgery. The previously present pleural effusi ons are no longer seen. In addition, the pericardial effusion has resolved. However, the previously described small nodular densities in the right lower lobe-right lung base hav e increased in size and number. The largest is nodular infiltrate at this location on the present st udy measures 2 by 1.3 cm.. The previously described right middle lobe nodule has also slightly furth er increased in size, presently measuring 8 millimeters and with central cavitation. There is also i ncreasing number of small nodules with average size 4 millimeters in the right lung. In the opposite-left lung there are 2 similar appearing new noncalcified 5 millimeters nodules in the parahilar region. There is also a 5 millimeter nodule in the medial aspect of the posterior basal s egment of the left lower lobe now evident. MEDIASTINUM: There is no hilar nor mediastinal adenopathy. Left thyroid gland nodule again noted. CARDIAC: Heart size upper normal. There is presently no pericardial effusion.Previously present larg e pericardial effusion is no longer present. Caliber of the ascending thoracic aorta is again noted be prominent, measuring 4.5 cm. There is no evidence of dissection. VISUALIZED UPPER ABDOMEN:No new significant adrenal masses, however, there is a partially included ma ss off the anterior aspect of the left kidney measuring 4.5 cm AP by 3.4 cm wide and possibly a compl icated cyst versus solid. There is also a smaller exophytic cyst partially included off the posterio r aspect of the ipsilateral left kidney. Please note the entire kidneys are not included in the fiel d of view. Spleen size normal. There is a well-defined hypodensity in the right hepatic lobe again noted, unchanged and probably a benign cyst. This measures approximately 3.5 by 2.5 cm. OSSEOUS: No significant osseous lesions.No fractures. IMPRESSION: 1. Increasing size and number of pulmonary nodules, concerning for increasing metastatic disease, giv en the history here. The largest nodular infiltrate is in the right lower lobe and measures 2 cm. T he slightly increasing size right middle lobe nodule now exhibits some central cavitation. Also incr easing nodules in the left lung. 2. Previously present bilateral pleural effusions and large pericardial effusion are no longer presen t. 3. There is no hilar nor mediastinal adenopathy. Ascending thoracic aorta diameter is enlarged, measuring 4.5 cm. There is no dissection RADIATION DOSE DELIVERED: 933.59mGy.cm Total DLP DATA REPOSITORY: All CT scans at this facility are submitted to the National Radiology Data Registry (NRDR) Dose Index Registry (DIR) with the [employer] [place] [employer] (A[employer]). RADIATION OPTIMIZATION: All CT scans at this facility use at least one of these dose optimization te chniques: automated exposure control; mA and/or kV adjustment per patient size (includes targeted exa ms where dose is matched to clinical indication); or iterative reconstruction.
== END ==
PROVIDERS: PCP Nurse Practitioner Family; Visit Provider Nurse Practitioner Adult Health
DX: C34.11 Malignant neoplasm of upper lobe, right bronchus or lung (principal); R91.8 Other nonspecific abnormal finding of lung field; D38.1 Neoplasm of uncertain behavior of trachea, bronchus and lung; N28.89 Other specified disorders of kidney and ureter; K76.89 Other specified diseases of liver
CPT/HCPCS: 71260; J3490

== ENCOUNTER 2022-01-07 04:23 | Outpatient (CLI) | payer MEDICARE, SELFPAY ==
[2022-01-07 11:43] LABS: Abs Immature Grans 0.02 10^3/uL (0.0-0.06); Absolute Basophil Count 0.04 10^3/uL (0.0-0.2); Absolute Eosinophil Count 0.15 10^3/uL (0.0-0.7); Absolute Lymphocyte Count 1.08 10^3/uL (1.2-3.4); Absolute Monocyte Count 0.81 10^3/uL (0.1-0.8); Absolute Neutrophil Count 4.61 10^3/uL (1.2-6.7); Basophils % 0.6; Eosinophils % 2.2; HCT 44.2 % (40.0-50.0); HGB 13.3 g/dL (13.5-17.5); Immature Grans % 0.3; Lymphocytes % 16.1; MCH 26.4 pg (27.0-33.0); MCHC 30.1 % (32.0-36.0); MCV 88 fL (80-95); MPV 10.3 fL (8.0-11.0); Monocytes % 12.1; Neutrophils % 68.7; Platelet Count 189 10^3/uL (130-400); RBC 5.04 10^6/uL (4.36-5.78); RDW 15.9 % (11.8-14.1); RDW-SD 51.5 fL; WBC 6.71 10^3/uL (4.4-10.8)
[2022-01-07 12:31] LABS: ALT 21 U/L (16-63); AST 15 U/L (15-37); Albumin 3.5 g/dL (3.4-5.0); Alkaline Phosphatase 85 U/L (46-116); Anion Gap 9.3 mmol/L (3-11); BUN 34 mg/dL (7-18); Bilirubin, Total 0.4 mg/dL (0.2-1.0); CO2 25.7 mmol/L (21.0-32.0); CREATININE 1.4 mg/dL (0.70-1.30); Calcium 8.9 mg/dL (8.5-10.1); Chloride 107 mmol/L (98-107); Estimated GFR 49.68 (mL/min/1.73m2); Glucose 113 mg/dL (74-106); Potassium 4.6 mmol/L (3.5-5.1); Sodium 142 mmol/L (136-145); Total Protein 7.4 g/dL (6.4-8.2)
== END 2022-01-07 04:24 | disposition home or self-care (01) ==
LOC: LBO 04:23
PROVIDERS: PCP Nurse Practitioner Family; Visit Provider Internal Medicine Medical Oncology
DX: C34.11 Malignant neoplasm of upper lobe, right bronchus or lung (principal)
CPT/HCPCS: 36415; 80053; 85025

== ENCOUNTER → 2022-02-25 00:55 | Outpatient (CLI) | payer MEDICARE, SELFPAY ==
--- NOTE | 2022-02-25 08:00 | DI.US_ITS ---
Exam(s) US RENAL EXAM: US RENAL CLINICAL HISTORY: monitoring renal cysts/mass, RENAL CYST, N28.1 TECHNIQUE: Ultrasound of both kidneys performed using standard protocol. COMPARISON: CT CT CHEST PE CTA from 04/27/2021 US US RENAL from 08/22/2021 FINDINGS: RIGHT KIDNEY: Measures 12.7 cm in length. There is a solitary small 1 cm benign cyst in the midpole level anterior cortex. No solid lesions. Normal cortical thickness and corticomedullary differentiation .No solid masses No intrarenal calculi nor hydronephrosis. LEFT KIDNEY: Measures 10.3 cm in length. There are multiple exophytic cysts. The largest of these measures 3.3 c m. Others measure 3.1 and 1.0 cm. There is also a 3 x 3 cm complex finding in the superior pole wit h is partially cystic and partially solid and requires further investigation to rule out neoplasm. N ormal cortical thickness and corticomedullary differentiaion. No solids masses. No intrarenal calcul i nor hydonephrosis. URINARY BLADDER: Prevoid volume is 66 cc Postvoid volume is cc Ureterovesical jets: Visualized IMPRESSION: 1. Bilateral cysts, more prominent on the left side. However, 1 of these findings is partially alex d partially cystic and requires further investigation with contrast infused CT scan or MRI to rule ou t left kidney neoplasm. 2. No hydronephrosis. DATA REPOSITORY:
== END ==
PROVIDERS: PCP Nurse Practitioner Family; Visit Provider Nurse Practitioner Gerontology
DX: N28.1 Cyst of kidney, acquired (principal)
CPT/HCPCS: 76770

== ENCOUNTER → 2022-03-04 14:57 | Outpatient (BNVA) | payer MEDICARE, SELFPAY | PROVIDERS: PCP Nurse Practitioner Family; Referring Provider Nurse Practitioner Family; Visit Provider Nurse Practitioner Gerontology | DX: N28.1 Cyst of kidney, acquired (principal) | CPT/HCPCS: 99213 ==

== ENCOUNTER 2022-04-10 01:17 | Outpatient (CLI) | payer MEDICARE, SELFPAY ==
[2022-04-10 13:02] LABS: Abs Immature Grans 0.02 10^3/uL (0.0-0.06); Absolute Basophil Count 0.03 10^3/uL (0.0-0.2); Absolute Eosinophil Count 0.21 10^3/uL (0.0-0.7); Absolute Lymphocyte Count 0.96 10^3/uL (1.2-3.4); Absolute Monocyte Count 0.68 10^3/uL (0.1-0.8); Absolute Neutrophil Count 4.67 10^3/uL (1.2-6.7); Basophils % 0.5; Eosinophils % 3.2; HCT 42.3 % (40.0-50.0); HGB 13.3 g/dL (13.5-17.5); Immature Grans % 0.3; Lymphocytes % 14.6; MCH 27.8 pg (27.0-33.0); MCHC 31.4 % (32.0-36.0); MCV 89 fL (80-95); MPV 10.8 fL (8.0-11.0); Monocytes % 10.4; Platelet Count 189 10^3/uL (130-400); RBC 4.78 10^6/uL (4.36-5.78); RDW-SD 45.4 fL; WBC 6.57 10^3/uL (4.4-10.8)
[2022-04-10 13:24] LABS: ALT 21 U/L (16-63); AST 14 U/L (15-37); Albumin 3.4 g/dL (3.4-5.0); Alkaline Phosphatase 70 U/L (46-116); Anion Gap 5.3 mmol/L (3-11); BUN 28 mg/dL (7-18); Bilirubin, Total 0.4 mg/dL (0.2-1.0); CO2 28.7 mmol/L (21.0-32.0); CREATININE 1.3 mg/dL (0.70-1.30); Calcium 9.1 mg/dL (8.5-10.1); Chloride 104 mmol/L (98-107); Estimated GFR 54.11 (mL/min/1.73m2); Glucose 111 mg/dL (74-106); Potassium 5.3 mmol/L (3.5-5.1); Sodium 138 mmol/L (136-145); Total Protein 7.9 g/dL (6.4-8.2)
== END 2022-04-10 01:18 | disposition home or self-care (01) ==
PROVIDERS: PCP Nurse Practitioner Family; Visit Provider Internal Medicine Medical Oncology
DX: C34.11 Malignant neoplasm of upper lobe, right bronchus or lung (principal)
CPT/HCPCS: 36415; 80053; 85025

== ENCOUNTER 2022-08-18 04:03 | Outpatient (CLI) | payer MEDICARE, SELFPAY ==
[2022-08-18 12:02] LABS: Abs Immature Grans 0.01 10^3/uL (0.0-0.06); Absolute Basophil Count 0.03 10^3/uL (0.0-0.2); Absolute Eosinophil Count 0.15 10^3/uL (0.0-0.7); Absolute Monocyte Count 0.57 10^3/uL (0.1-0.8); Absolute Neutrophil Count 4.67 10^3/uL (1.2-6.7); Basophils % 0.5; Eosinophils % 2.4; HCT 41.9 % (40.0-50.0); Immature Grans % 0.2; Lymphocytes % 12.8; MCH 27.4 pg (27.0-33.0); MCV 88 fL (80-95); MPV 10.7 fL (8.0-11.0); Monocytes % 9.1; Platelet Count 196 10^3/uL (130-400); RBC 4.75 10^6/uL (4.36-5.78); RDW 14.2 % (11.8-14.1); RDW-SD 45.8 fL; WBC 6.23 10^3/uL (4.4-10.8)
[2022-08-18 12:33] LABS: ALT 17 U/L (16-63); AST 13 U/L (15-37); Albumin 3.4 g/dL (3.4-5.0); Alkaline Phosphatase 69 U/L (46-116); BUN 34 mg/dL (7-18); Bilirubin, Total 0.6 mg/dL (0.2-1.0); CREATININE 1.7 mg/dL (0.70-1.30); Calcium 9.5 mg/dL (8.5-10.1); Chloride 101 mmol/L (98-107); Estimated GFR 42.04 (mL/min/1.73m2); Glucose 117 mg/dL (74-106); Magnesium 1.8 mg/dL (1.8-2.4); Potassium 4.2 mmol/L (3.5-5.1); Sodium 131 mmol/L (136-145); Total Protein 7.8 g/dL (6.4-8.2)
== END 2022-08-18 04:04 | disposition home or self-care (01) ==
PROVIDERS: PCP Nurse Practitioner Family; Visit Provider Internal Medicine Medical Oncology
DX: C34.11 Malignant neoplasm of upper lobe, right bronchus or lung (principal); C78.01 Secondary malignant neoplasm of right lung; C78.02 Secondary malignant neoplasm of left lung
CPT/HCPCS: 36415; 80053; 83735; 85025

== ENCOUNTER 2022-09-03 02:48 | Outpatient (CLI) | payer MEDICARE, SELFPAY ==
--- NOTE | 2022-09-03 07:15 | DI.US_ITS ---
Exam(s) US RENAL EXAM: US RENAL CLINICAL HISTORY: monitoring renal cyst,f/u [facility],n28.1 TECHNIQUE: Ultrasound of both kidneys performed using standard protocol. COMPARISON: CT CT CHEST PE CTA from 04/27/2021 US US RENAL from 02/25/2022 FINDINGS: KIDNEYS: Previously described small benign cysts again noted bilaterally. There do not appear to be new solid renal masses on these images. There few small echogenic foci seen left kidney which measur e up to 1 cm and may represent nonobstructive calculi. No hydronephrosis on either side. URINARY BLADDER: Prevoid volume is 130 cc Postvoid volume is patient not able to urinate cc Prostate not able be seen. No evidence of bladder mass nor diverticuli. Ureterovesical jets: Both not visualized IMPRESSION: 1. Bilateral benign renal cysts. No new solid renal masses. 2. Echogenic foci in the left kidney measuring up to 1 cm which may represent nonobstructive calculi . There is no hydronephrosis. 3. Limited evaluation of the urinary bladder. DATA REPOSITORY:
== END 2022-09-03 03:08 ==
LOC: DI 02:49
PROVIDERS: PCP Nurse Practitioner Family; Visit Provider Nurse Practitioner Gerontology
DX: N28.1 Cyst of kidney, acquired (principal); N20.0 Calculus of kidney
CPT/HCPCS: 76770

== ENCOUNTER → 2022-09-07 09:13 | Outpatient (BNVA) | payer MEDICARE, SELFPAY | PROVIDERS: PCP Nurse Practitioner Family; Referring Provider Nurse Practitioner Family; Visit Provider Nurse Practitioner Gerontology | DX: N28.1 Cyst of kidney, acquired (principal) | CPT/HCPCS: 99442 ==

== ENCOUNTER 2022-09-25 12:30 | Emergency (ER) | payer MEDICARE, SELFPAY ==
[2022-09-25 12:33] VITALS: BP 135/69; PULSE 70; RESP 18; TEMP 36.8; O2SAT 94
--- NOTE | 2022-09-25 12:45 | W.ED.GENAD ---
Discharge Plan Disposition Patient Disposition: Home Condition: Improving Discharge Details Clinical Impression: Calculus of ureterovesical junction (UVJ) Primary Care Provider: Lucinda Mcgowan ED Provider: Adams Saavedra [place] Meds and New Rx's Prescriptions: New tamsulosin 0.4 mg capsule 0.4 mg PO DAILY Qty: 14 0RF Continued Eliquis 5 mg tablet 5 mg PO BID metoprolol succinate 100 mg tablet extended release 24 hr 50 mg PO BID olmesartan See Rx Instructions PO .QD Rx Instructions: 5mg orally; take 2 tabs for 10mg dose once daily Metamucil (sugar) Powder 1 tbsp PO DAILY melatonin 10 mg capsule 10 mg PO HS PRN docusate sodium [Colace] 100 mg capsule 100 mg PO BID Levemir U-100 Insulin 100 unit/mL solution 12 unit subcut BID ondansetron 4 mg tablet,disintegrating 4 mg PO Q6H PRN (Reason: nausea and vomiting) Qty: 90 0RF CBD/THC 2 to 1 tincture 0.5 tsp PO/SL PRN morphine concentrate 100 mg/5 mL (20 mg/mL) solution See Rx Instructions PO Q4H PRN MDD 120 mg Qty: 30 0RF Rx Instructions: 0.25-1.0 ml orally every 4 hours, as needed; hospice lorazepam 1 mg tablet 1 mg PO .q4h PRN (Reason: anxiety) Qty: 10 3RF Rx Instructions: hospice albuterol sulfate [Proventil HFA] 6.7 GM HFA aerosol inhaler 2 puff Inhalation .Q6HRS albuterol sulfate 2.5 MG/3 ML solution for nebulization 3 ml Inhalation QID PRN PRN (Reason: Dyspnea) Qty: 30 0RF Discharge Instructions Instructions: Renal Colic (ED) Additional Instructions: You were seen in the ED for new onset of left flank and back pain. You were found to have a stone in the distal ureter right at the level of the bladder. It is 5 mm in size. Hopefully it will pass on its own over the weekend. We will start you on tamsulosin hoping to help with the passage. There are prescriptions that have been sent to your pharmacy by palliative care for morphine and ondansetron. If your pain is not controlled with plain acetaminophen you may take 0.25 mL of the oral morphine every 4 hours for pain control. The ondansetron is for any resulting nausea vomiting. Please contact Dr. Esposito on Wednesday if you have not passed the stone over the weekend. Strain your urine so you know when the stone has passed. Return to ED if you develop any fever, uncontrolled pain, persistent vomiting, other concerns or problems. Medical Decision Making Patient with known metastatic lung cancer which has progressed despite treatment and now being transitioned to hospice who has developed severe left sided back pain overnight. He is neurologically intact. Pain does seem to be musculoskeletal in nature as he is very uncomfortable with any type of movement. He does have known stone in the left kidney from previous imaging. He is not describing urinary symptoms, colicky symptoms, abdominal pain. As this is new and patient not admitted to hospice in pain significant sent to ED for evaluation and management. After discussion with patient and will place IV, check laboratory studies, obtain urine and CT stone study. Patient will be medicated for pain. Patient's laboratory studies with a normal white count. Kidney function a little higher than previous baseline at 2.2 with previous high of 1.8. Chemistries and liver function normal. Urine with trace blood but no evidence of infection. CT scan does show a 5 mm left distal UVJ stone with mild hydronephrosis. Patient is much more comfortable after morphine. Will plan to start on tamsulosin. Patient and comfortable going home with prescriptions for ondansetron ODT and immediate release oral morphine if needed. We will try to manage pain with acetaminophen first. If he does not pass the stone over the weekend he may contact Dr. Esposito whom he has seen previously. Return to ED for fever, uncontrolled pain, vomiting, other concerns or problems. Medical Records Medical records reviewed: Yes I reviewed the patient's medical records. Medical records narrative: reviewed today's palliative care note Lab Data Lab results reviewed: Yes I reviewed the patient's lab results. HPI General Date/Time Provider Initiated Documentation: 09/25/22 12:45. Information obtained by: patient and family. HPI Narrative: Patient presents to ED with his with new onset left flank and back pain overnight. Patient has progressive metastatic lung cancer and saw his oncologist Wednesday. At that time it was determined to discontinue treatment and transition to hospice. He met with palliative care over the phone today to begin that process. In discussing with the provider patient referred to ED as this left sided pain is completely new and acute. He does have known stone in the left kidney. He denies having urinary symptoms, hematuria, fever. Pain seems much worse with movement. He denies abdominal pain. He does have some nausea. He has no numbness or weakness in his lower extremities. Related Data Home Medications Medication Instructions Recorded Confirmed albuterol sulfate 2.5 mg/3 mL 3 ml inhalation QID PRN PRN 01/27/16 09/25/22 (0.083 %) solution for nebulization Dyspnea #30 vials albuterol sulfate 90 mcg/actuation 2 puff inhalation .Q6HRS 01/27/16 09/25/22 aerosol inhaler (Proventil HFA) apixaban 5 mg tablet (Eliquis) 5 mg PO BID 05/22/21 09/25/22 metoprolol succinate 100 mg 50 mg PO BID 09/02/21 09/25/22 tablet,extended release 24 hr CBD/THC 2 to 1 0.5 tsp PO/SL PRN 10/16/21 09/25/22 docusate sodium 100 mg capsule 100 mg PO BID 11/14/21 09/25/22 (Colace) insulin detemir U-100 100 unit/mL 12 unit subcut BID 11/14/21 09/25/22 subcutaneous solution (Levemir U-100 Insulin) melatonin 10 mg capsule 10 mg PO HS PRN 11/14/21 09/25/22 psyllium seed (sugar) oral powder 1 tbsp PO DAILY 07/27/22 09/25/22 (Metamucil (sugar) oral powder) olmesartan See Rx Instructions PO .QD 07/28/22 09/25/22 ondansetron 4 mg disintegrating 4 mg PO Q6H PRN nausea and 07/30/22 09/25/22 tablet vomiting #90 tabs lorazepam 1 mg tablet 1 mg PO .q4h PRN anxiety #10 tabs 09/25/22 09/25/22 morphine concentrate 100 mg/5 mL See Rx Instructions PO Q4H PRN #30 09/25/22 09/25/22 (20 mg/mL) oral solution mL tamsulosin 0.4 mg capsule 0.4 mg PO DAILY #14 caps 09/25/22 Previous Rx's Medication Instructions Recorded albuterol sulfate 2.5 mg/3 mL 3 ml inhalation QID PRN PRN 01/27/16 (0.083 %) solution for nebulization Dyspnea #30 vials ondansetron 4 mg disintegrating 4 mg PO Q6H PRN nausea and 07/30/22 tablet vomiting #90 tabs lorazepam 1 mg tablet 1 mg PO .q4h PRN anxiety #10 tabs 09/25/22 morphine concentrate 100 mg/5 mL See Rx Instructions PO Q4H PRN #30 09/25/22 (20 mg/mL) oral solution mL tamsulosin 0.4 mg capsule 0.4 mg PO DAILY #14 caps 09/25/22 Allergies Allergy/AdvReac Type Severity Reaction Status Date / Time ciprofloxacin Allergy Verified 09/25/22 12:38 lisinopril Allergy Verified 09/25/22 12:38 metformin Allergy Verified 09/25/22 12:38 tramadol AdvReac Other (See Verified 09/25/22 12:38 Comment) General Stated Complaint: FlankPain ANNAMARIA: 3 Review of Systems Narrative: Per HPI PFSH All Active Problems (Updated 09/25/22 @ 15:12 by Adams Saavedra MD) Calculus of ureterovesical junction (UVJ) (Acute) Hospice care patient (Acute) Renal cyst (Acute) Venous insufficiency (Acute) Nail dystrophy (Acute) Depression (Chronic) Generalized weakness (Acute) Multinodular thyroid (Acute) Acute pericardial effusion (Acute) Chronic pleural effusion (Acute) Acute respiratory failure with hypoxemia (Acute) Chest pain (Acute) Discharge planning issues (Acute) Palliative care patient (Acute) Bilateral arm weakness (Acute) Right wrist effusion (Acute) Urinary retention (Acute) Fever (Acute) UTI (urinary tract infection) (Chronic) Discharge planning issues (Acute) Hx of traumatic brain injury (Chronic) CKD (chronic kidney disease) (Chronic) Insulin dependent diabetes mellitus (Chronic) Lung cancer (Chronic) Medical History Adenocarcinoma of right lung With disease progression on Tx. Adjustment disorder with depressed mood Anasarca Arthralgia Atrial fibrillation BMI 40.0-44.9, adult COPD (chronic obstructive pulmonary disease) Diabetes DVT (deep venous thrombosis) S/p IVC filter Hyperlipidemia Hypertension Hypoxia Onychomycosis Pericardial effusion Surgical History History of lobectomy of lung Social History Smoking/Tobacco Use Status: Former Tobacco Use Smoking risk assessment performed?: Yes Alcohol Intake: former Drug use: Occasionally Substance use type: marijuana Details: pt states he has medical marijuana. CBD oil Do you feel safe at home: Yes Do you feel safe in your relationship?: Yes Exam Narrative Exam Narrative: Const: Obese elderly male in NAD. HEENT: NC/AT. Normal facial exam. Eyes: Normal conjunctiva and sclera. Lungs: Normal respiratory effort. Cor: RRR without murmur/gallop. Good radial pulses. GI: Soft. NT/ND. No guarding or rebound. Back: No CVAT. No spine tenderness. Limited ROM due to left back pain. Tender in left lower lumbar area. Neuro: A+O x 3. Normal speech, mentation. Cranial nerves II - XII grossly intact. No gross motor or sensory deficit. Ext: No C/C. BLE edema present. Skin: Warm and dry. Course Vital Signs Vital signs: Vital Signs Temperature 98.2 F 09/25/22 12:33 Pulse 70 09/25/22 12:33 Respiratory Rate 18 09/25/22 12:33 Blood Pressure 135/69 09/25/22 12:33 Pulse Oximetry 94 09/25/22 12:33 Temperature 98.2 F 09/25/22 12:33 Temperature Source Temporal Artery Scan 09/25/22 12:33 Pulse 70 09/25/22 12:33 Respiratory Rate 18 09/25/22 12:33 Respiratory Effort Normal, Non-Labored 09/25/22 12:37 Blood Pressure 135/69 09/25/22 12:33 Pulse Oximetry 94 09/25/22 12:33 Oxygen Delivery Method Room Air 09/25/22 12:33 Oxygen Flow Rate 0 09/25/22 12:33
--- NOTE | 2022-09-25 13:00 | DI.CT_ITS ---
Exam(s) CT RENAL COLIC WO EXAM: CT RENAL COLIC WO CLINICAL HISTORY: left flank/back pain. TECHNIQUE: Imaging Protocol: Axial computed tomography images with coronal and sagittal reformatted images were created and reviewed. COMPARISON: CT CT CHEST PE ABD PELVIS W from 01/19/[address] CHEST PE CTA from 04/27/2021 FINDINGS: ABDOMEN: Lung Bases: There are multiple pulmonary nodules present. Liver: Normal density. There is a stable cyst seen in the right lobe of the liver. Gallbladder and biliary tract: Layering debris is seen within the gallbladder which may represent a c ombination of stones and sludge. Pancreas: Normal density, no abnormal calcifications or inflammatory process. Spleen: Normal. Kidneys: Normal size, contour and axis.There is a 5 mm stone in the distal left ureter just proximal to the UVJ causing mild hydronephrosis. There is bilateral nephrolithiasis. There again seen left r enal cysts. The largest again shows thin wall calcification and measures 3.4 x 3.9 cm. Adrenal glands: No mass is seen. Lymph nodes: Within normal limits. Abdominal Aorta: Abdominal portion non-dilated. Atherosclerosis is present. PELVIS: Bladder:Symmetric distention, no gross wall thickening. Bowel: There is diverticulosis of the colon but no evidence of acute diverticulitis. Appendix is unr emarkable. There is no evidence of bowel obstruction or bowel wall thickening. Peritoneal cavity: No ascites, collection or mesenteric inflammatory response. No free air. Reproductive organs: The prostate gland is enlarged. Bones: Within normal limits. Soft Tissues: Within normal limits. IMPRESSION: 1. There is a 5 mm distal left ureteral stone causing mild hydronephrosis. 2. Bilateral nephrolithiasis. 3. Multiple pulmonary nodules consistent with metastatic disease 4. Findings were discussed with Dr. Saavedra at 2:57 p.m. on 09/25/2022. RADIATION DOSE DELIVERED: 1,732.33mGy.cm Total DLP DATA REPOSITORY: All CT scans at this facility are submitted to the National Radiology Data Registry (NRDR) Dose Index Registry (DIR) with the [employer] (ACR). RADIATION OPTIMIZATION: All CT scans at this facility use at least one of these dose optimization te chniques: automated exposure control; mA and/or kV adjustment per patient size (includes targeted exa ms where dose is matched to clinical indication); or iterative reconstruction.
[2022-09-25 13:14] LABS: Abs Immature Grans 0.03 10^3/uL (0.0-0.06); Absolute Basophil Count 0.02 10^3/uL (0.0-0.2); Absolute Eosinophil Count 0.12 10^3/uL (0.0-0.7); Absolute Lymphocyte Count 0.74 10^3/uL (1.2-3.4); Absolute Monocyte Count 0.86 10^3/uL (0.1-0.8); Absolute Neutrophil Count 8.23 10^3/uL (1.2-6.7); Basophils % 0.2; Eosinophils % 1.2; HCT 42.9 % (40.0-50.0); HGB 13.1 g/dL (13.5-17.5); Immature Grans % 0.3; Lymphocytes % 7.4; MCH 27.1 pg (27.0-33.0); MCHC 30.5 % (32.0-36.0); MCV 89 fL (80-95); MPV 10.7 fL (8.0-11.0); Monocytes % 8.6; Neutrophils % 82.3; Platelet Count 198 10^3/uL (130-400); RBC 4.84 10^6/uL (4.36-5.78); RDW 14.2 % (11.8-14.1); RDW-SD 45.5 fL
[2022-09-25] MEDS: Normal Saline 1,000 ML 150 ML IV (13:26)
[2022-09-25] MEDS: Ondansetron 4 MG/2 ML VIAL IVP (13:27)
[2022-09-25] MEDS: MORPHine 10 MG/ML VIAL 5 MG IVP (13:30)
[2022-09-25 13:32] LABS: ALT 21 U/L (16-63); AST 16 U/L (15-37); Albumin 3.3 g/dL (3.4-5.0); Alkaline Phosphatase 67 U/L (46-116); Anion Gap 8.7 mmol/L (3-11); BUN 38 mg/dL (7-18); Bilirubin, Total 0.5 mg/dL (0.2-1.0); CO2 24.3 mmol/L (21.0-32.0); CREATININE 2.2 mg/dL (0.70-1.30); Calcium 9.4 mg/dL (8.5-10.1); Chloride 107 mmol/L (98-107); Estimated GFR 30.85 (mL/min/1.73m2); Glucose 137 mg/dL (74-106); Sodium 140 mmol/L (136-145); Total Protein 7.6 g/dL (6.4-8.2)
[2022-09-25 14:24] LABS: Bilirubin Negative (Negative); Blood Trace-intact (Negative); Clarity Clear (Clear); Glucose Negative (Negative); Ketones Negative (Negative); Leukocyte Esterase Negative (Negative); Nitrite Negative (Negative); Specific Gravity 1.025 (1.005-1.025); Urobilinogen 0.2 EU/dL (Up TO 0.2); pH 5.5 (5-8)
[2022-09-25 14:32] LABS: Bacteria Negative HPF (Negative); C & S Indicated? No; Casts Negative LPF (Negative); Crystals Negative HPF (Negative); Epithelial Cells Rare HPF (Negative); Mucus Negative (Negative); RBC 0-2 HPF (0-2); WBC 0-2 HPF (0-5)
[2022-09-25 15:21] VITALS: BP 120/66; PULSE 71; RESP 16; O2SAT 97
== END 2022-09-25 15:46 | disposition home or self-care (01) ==
PROVIDERS: Emergency Provider Emergency Medicine; PCP Nurse Practitioner Family
DX: N13.2 Hydronephrosis with renal and ureteral calculous obstruction (principal); I10 Essential (primary) hypertension; E11.9 Type 2 diabetes mellitus without complications; J44.9 Chronic obstructive pulmonary disease, unspecified; I48.91 Unspecified atrial fibrillation; E66.9 Obesity, unspecified; Z86.718 Personal history of other venous thrombosis and embolism; Z79.4 Long term (current) use of insulin
CPT/HCPCS: 36415; 80053; 96361; 96374; 99284; 74176; 81003; 81015; 85025; J2270; J2405

== ENCOUNTER 2022-09-28 03:53 | Emergency (ER) | payer MEDICARE, SELFPAY ==
[2022-09-28] VITALS (23 sets, daily range): BP systolic 101–149; BP diastolic 55–93; PULSE 100–137; RESP 17–35; TEMP 36.4; O2SAT 99
--- NOTE | 2022-09-28 03:56 | ED.GENADUL_ITS ---
Discharge Plan Disposition Patient Disposition: Home Condition: Stable Discharge Details Clinical Impression: Fall, Hospice care patient, Contusion of thoracic spine Primary Care Provider: Lucinda Mcgowan ED Provider: Frank Cortez Home Meds and New Rx's Prescriptions: No Action Eliquis 5 mg tablet 5 mg PO BID metoprolol succinate 100 mg tablet extended release 24 hr 50 mg PO BID olmesartan See Rx Instructions PO .QD Rx Instructions: 5mg orally; take 2 tabs for 10mg dose once daily Metamucil (sugar) Powder 1 tbsp PO DAILY melatonin 10 mg capsule 10 mg PO HS PRN docusate sodium [Colace] 100 mg capsule 100 mg PO BID Levemir U-100 Insulin 100 unit/mL solution 12 unit subcut BID ondansetron 4 mg tablet,disintegrating 4 mg PO Q6H PRN (Reason: nausea and vomiting) Qty: 90 0RF morphine concentrate 100 mg/5 mL (20 mg/mL) solution See Rx Instructions PO Q4H PRN MDD 120 mg Qty: 30 0RF Rx Instructions: 0.25-1.0 ml orally every 4 hours, as needed; hospice lorazepam 1 mg tablet 1 mg PO .q4h PRN (Reason: anxiety) Qty: 10 3RF Rx Instructions: hospice albuterol sulfate [Proventil HFA] 6.7 GM HFA aerosol inhaler 2 puff Inhalation .Q6HRS albuterol sulfate 2.5 MG/3 ML solution for nebulization 3 ml Inhalation QID PRN PRN (Reason: Dyspnea) Qty: 30 0RF tamsulosin 0.4 mg capsule 0.4 mg PO DAILY Qty: 14 0RF Discharge Instructions Additional Instructions: The cat scans did not show any broken bones, he likely has bone bruising causing the pain follow up with his hospice providers this week Medical Decision Making 71 yo male with hx of lung cancer who was recently enrolled in the hospice program comes in after a fall. HE apparently stood up and fell back wards hitting his upper back on the metal bed frame. doesn't believe he lost consciousness. She had ems bring him in due to concerns he may have a fracture and wanted to have imaging done to determine this. Pt arrives conscious, knows his name and where he is, unsure of time. He is moving all extremities. HE has mid lower c spine, mid thoracic and mid lumbar pain. No stepoffs or deformities. Will defer labs, ekg and other testing at this time given his hospice status and goal to be comfortable. Had a long discussion with the and him and they do want to know if he has a fracture or other traumatic injury and want to proceed with imaging, will obtain ct head/c spine/t/l spine. No chest or abdominal tenderness so do not feel imaging indicated of these. pt's imaging shows no acute fractures, does have evidence of worsening cancer on the thoracic/lumbar ct. He can't sit up long enough due to pain which I suspect is due to contusion, and also is mildly confused as he doesn't know the time which is new for him. Will transport back to his house, they will reach out to their hospice providers. Will provide short course of pain medicine until they can see their hospice provider Differential Diagnosis Differential Diagnosis: fracture contusion Medical Records Medical records reviewed: Yes I reviewed the patient's medical records. Imaging Data Radiologic Study: Attestation: I personally reviewed and interpreted this imaging study as follows: Imaging: CT Scan Radiologist's impression: IMPRESSION: 1. No fracture. 2. Degenerative changes, as described above IMPRESSION: 1. Multiple old, bilateral infarct2. 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 3. Cerebral atrophy. 4. No acute intracranial hemorrhage or infarct. Radiologic Study #2: Attestation: I personally reviewed and interpreted this imaging study as follows: Imaging: CT Scan Radiologist's impression: IMPRESSION: 1. Findings suspicious for residual/metastatic disease the right middle and right lower lobes, with interval worsening. A superimposed infectious process would be difficult to exclude. Recommend clinical assessment and follow- up. Fleischner Society follow-up recommendations for incidental nodules are not indicated in the setting of a history of neoplasia. Follow up per the patient's medical condition. 2. No evidence of acute fracture or subluxation of the thoracic spine. 3. Indeterminate sclerotic bone lesions as described above. Correlate with PSA. Correlate with PSA. If indicated, consider bone scan for further evaluation. If indicated, bone scan can be obtained for further evaluation. 4. Dilated ascending thoracic aorta. Recommend clinical assessment and follow-up. 5. Asymmetric prominence of the right thyroid lobe. Correlate with thyroid function tests. HPI General Mode of arrival: EMS . Date/Time Provider Initiated Documentation: 09/28/22 03:54 . Limitations to Documentation: no limitations . Information obtained by: patient . History of Present Illness 71 year old M pr esents to the emergency department with the chief complaint of lower back pain, described as moderate, Patient started experiencing this hour(s) (1) and it has been constant. No relieving factors improve symptom(s), No exacerbating factors reported . Patient did receive the following treatments prior to arrival, none Related Data Home Medications Medication Instructions Recorded Confirmed albuterol sulfate 2.5 mg/3 mL 3 ml inhalation QID PRN PRN 01/27/16 09/28/22 (0.083 %) solution for nebulization Dyspnea #30 vials albuterol sulfate 90 mcg/actuation 2 puff inhalation .Q6HRS 01/27/16 09/28/22 aerosol inhaler (Proventil HFA) apixaban 5 mg tablet (Eliquis) 5 mg PO BID 05/22/21 09/28/22 metoprolol succinate 100 mg 50 mg PO BID 09/02/21 09/28/22 tablet,extended release 24 hr docusate sodium 100 mg capsule 100 mg PO BID 11/14/21 09/28/22 (Colace) insulin detemir U-100 100 unit/mL 12 unit subcut BID 11/14/21 09/28/22 subcutaneous solution (Levemir U-100 Insulin) melatonin 10 mg capsule 10 mg PO HS PRN 11/14/21 09/28/22 psyllium seed (sugar) oral powder 1 tbsp PO DAILY 07/27/22 09/28/22 (Metamucil (sugar) oral powder) olmesartan See Rx Instructions PO .QD 07/28/22 09/28/22 ondansetron 4 mg disintegrating 4 mg PO Q6H PRN nausea and 07/30/22 09/28/22 tablet vomiting #90 tabs lorazepam 1 mg tablet 1 mg PO .q4h PRN anxiety #10 tabs 09/25/22 09/28/22 morphine concentrate 100 mg/5 mL See Rx Instructions PO Q4H PRN #30 09/25/22 09/28/22 (20 mg/mL) oral solution mL tamsulosin 0.4 mg capsule 0.4 mg PO DAILY #14 caps 09/25/22 09/28/22 Previous Rx's Medication Instructions Recorded albuterol sulfate 2.5 mg/3 mL 3 ml inhalation QID PRN PRN 01/27/16 (0.083 %) solution for nebulization Dyspnea #30 vials ondansetron 4 mg disintegrating 4 mg PO Q6H PRN nausea and 07/30/22 tablet vomiting #90 tabs lorazepam 1 mg tablet 1 mg PO .q4h PRN anxiety #10 tabs 09/25/22 morphine concentrate 100 mg/5 mL See Rx Instructions PO Q4H PRN #30 09/25/22 (20 mg/mL) oral solution mL tamsulosin 0.4 mg capsule 0.4 mg PO DAILY #14 caps 09/25/22 Allergies Allergy/AdvReac Type Severity Reaction Status Date / Time ciprofloxacin Allergy Verified 09/25/22 12:38 lisinopril Allergy Verified 09/25/22 12:38 metformin Allergy Verified 09/25/22 12:38 tramadol AdvReac Other (See Verified 09/25/22 12:38 Comment) General ANNAMARIA: 3 Review of Systems All systems reviewed & are unremarkable except as noted in HPI and below Constitutional Constitutional: Denies chills and Denies fever(s) Cardiovascular Cardiovascular: Denies chest pain and Denies dyspnea Respiratory Respiratory: Denies cough and Denies dyspnea Gastrointestinal Gastrointestinal: Denies abdominal pain, Denies nausea and Denies vomiting Genitourinary Genitourinary: Denies dysuria Musculoskeletal Musculoskeletal: Denies joint swelling Integumentary/Breasts Skin/Breast: Denies rash PFSH All Active Problems (Updated 09/28/22 @ 06:35 by Frank Cortez MD) Calculus of ureterovesical junction (UVJ) (Acute) Fall (Acute) Hospice care patient (Acute) Contusion of thoracic spine (Acute) Hospice care patient (Acute) Renal cyst (Acute) Venous insufficiency (Acute) Nail dystrophy (Acute) Depression (Chronic) Generalized weakness (Acute) Multinodular thyroid (Acute) Acute pericardial effusion (Acute) Chronic pleural effusion (Acute) Acute respiratory failure with hypoxemia (Acute) Chest pain (Acute) Discharge planning issues (Acute) Palliative care patient (Acute) Bilateral arm weakness (Acute) Right wrist effusion (Acute) Urinary retention (Acute) Fever (Acute) UTI (urinary tract infection) (Chronic) Discharge planning issues (Acute) Hx of traumatic brain injury (Chronic) CKD (chronic kidney disease) (Chronic) Insulin dependent diabetes mellitus (Chronic) Lung cancer (Chronic) Medical History Adenocarcinoma of right lung With disease progression on Tx. Adjustment disorder with depressed mood Anasarca Arthralgia Atrial fibrillation BMI 40.0-44.9, adult COPD (chronic obstructive pulmonary disease) Diabetes DVT (deep venous thrombosis) S/p IVC filter Hyperlipidemia Hypertension Hypoxia Onychomycosis Pericardial effusion Surgical History History of lobectomy of lung Social History Smoking/Tobacco Use Status: Former Tobacco Use Smoking risk assessment performed?: Yes Alcohol Intake: former Drug use: Occasionally Substance use type: marijuana Details: pt states he has medical marijuana. CBD oil Do you feel safe at home: Yes Do you feel safe in your relationship?: Yes Exam Const Orientation: alert HENMT Head: normal to inspection Ears: external ears normal General nose exam: external nose normal Mouth: moist mucous membranes Eyes General: appearance normal, both eyes and all related structures Neck Neck: normal visual inspection Resp Effort & Inspection: normal respiratory effort and able to speak in complete sentences Cardio Rate: regular rate GI Palpation: soft and nontender Skin General skin exam: no rashes or lesions noted Neuro General: patient alert Extrem General: normal to inspection
--- NOTE | 2022-09-28 04:00 | DI.CT_ITS ---
Exam(s) CT THORACIC LUMBAR SPINE WO EXAM: CT THORACIC LUMBAR SPINE WO CLINICAL HISTORY: fall, pain. TECHNIQUE: Imaging Protocol: Axial, coronal and sagittal images were performed COMPARISON: CT CT CHEST W from 12/04/2021 FINDINGS: Thoracic spine: Bones: No fractures are seen. The alignment of the spine is normal including the cervicothoracic ramandeep ction. Degenerative disc changes. Sclerotic rib and spine lesions, largest in T4. This is presumabl y a bone island. Soft tissues: Status post upper lobectomy. Multiple nodular densities in right lung with apparent in crease when compared to priors. Increased density seen in the right middle lobe could represent area of consolidation versus metastatic disease. Lungs suboptimally evaluated due to respiratory motion. Multiple small densities noted in the left lung as well. Thoracic aorta is ectatic, 4.5 cm diamete r.. Lumbar spine: No fracture is identified. Degenerative disc changes and facet degenerative changes ar e present. Sclerotic focus right ilium. Other small sclerotic foci left ilium left sacrum. Soft tissues: Left renal cysts.. No paraspinal hematoma. IMPRESSION: No acute fracture of the thoracic or lumbar spine. Sclerotic bony lesions could represent metastases Apparent worsening pulmonary metastases. Question consolidation versus metastasis right middle lobe. RADIATION DOSE DELIVERED: 2,473.21mGy.cm Total DLP DATA REPOSITORY: All CT scans at this facility are submitted to the National Radiology Data Registry (NRDR) Dose Index Registry (DIR) with the [employer] (ACR). RADIATION OPTIMIZATION: All CT scans at this facility use at least one of these dose optimization te chniques: automated exposure control; mA and/or kV adjustment per patient size (includes targeted exa ms where dose is matched to clinical indication); or iterative reconstruction.
--- NOTE | 2022-09-28 04:04 | DI.CT_ITS ---
Exam(s) CT HEAD CERVICAL SPINE WO EXAM: CT HEAD CERVICAL SPINE WO CLINICAL HISTORY: fall, pain. TECHNIQUE: Imaging Protocol: Axial computed tomography images with coronal and sagittal reformatted images were created and reviewed COMPARISON: No exams were available for comparison FINDINGS: Head CT Ventricles and Extra axial spaces: Normal in size and morphology for the patient's age. Hemorrhage: None. Cerebral parenchyma: Large old bilateral frontal infarcts. Old right frontal parietal and occipital infarcts. Atrophy. Midline shift: None. Brainstem/Cerebellum: Right posterior fossa arachnoid cyst versus shirley cisterna magna. Calvarium: Right frontoparietal craniotomy. No acute fracture Visualized Paranasal sinuses/Mastoids: Clear. Cervical Spine CT BONES: Vertebral body heights are maintained. Alignment is normal. There is no evidence of acute frac ture. Degenerative disc changes and facet degenerative changes are seen . SOFT TISSUES: No paraspinal hematoma. The airway appears intact. No pneumothorax is seen at the lung apices. IMPRESSION: Head CT: Large old bilateral infarcts. No acute abnormality. Right craniotomy defect. C-spine CT: Degenerative changes, no acute abnormality. RADIATION DOSE DELIVERED: 1,616.52mGy.cm Total DLP DATA REPOSITORY: All CT scans at this facility are submitted to the National Radiology Data Registry (NRDR) Dose Index Registry (DIR) with the [employer] (ACR). RADIATION OPTIMIZATION: All CT scans at this facility use at least one of these dose optimization te chniques: automated exposure control; mA and/or kV adjustment per patient size (includes targeted exa ms where dose is matched to clinical indication); or iterative reconstruction.
[2022-09-28] MEDS: HYDROmorphone 2 MG/ML SYR 1 MG IM (04:21)
--- NOTE | 2022-09-28 05:11 | DI.VRAD_ITS ---
PROCEDURE INFORMATION: Exam: CT Head Without Contrast Exam date and time: 09/28/2022 4:41 AM Age: 71 years old Clinical indication: Injury or trauma; Blunt trauma (contusions or hematomas); Without loss of consciousness; Injury date: 09/28/22; Injury details: Fall, pain; Prior surgery; Surgery date: 6+ months; Surgery type: HX tbi with; Additional info: HX of lung CA TECHNIQUE: Imaging protocol: Computed tomography of the head without contrast. Radiation optimization: All CT scans at this facility use at least one of these dose optimization techniques: automated exposure control; mA and/or kV adjustment per patient size (includes targeted exams where dose is matched to clinical indication); or iterative reconstruction. COMPARISON: MR CERVICAL SPINE WO/W 01/20/2021 1:26 PM FINDINGS: Brain: CSF density is seen posteriorly, between the cerebellar hemispheres, suggesting shirley cisterna magna or arachnoid cyst. The cortical sulci are prominent. There is an old right occipital infarct. There is an old right temporal infarct. There is an old right frontoparietal infarct. Extensive old bifrontal infarcts are present. No acute intracranial hemorrhage or infarct is identified. No mass effect. There is no midline shift. Cerebral ventricles: The ventricles are prominent. Paranasal sinuses: Visualized sinuses are unremarkable. No fluid levels. Mastoid air cells: Visualized mastoid air cells are well aerated. Bones/joints: The patient is status post right frontoparietal craniotomy. Soft tissues: Unremarkable. IMPRESSION: 1. Multiple old, bilateral infarcts. 2. Shirley cisterna magna or arachnoid cyst in the posterior fossa. 3. Cerebral atrophy. 4. No acute intracranial hemorrhage or infarct. PROCEDURE INFORMATION: Exam: CT Cervical Spine Without Contrast Exam date and time: 09/28/2022 4:41 AM Age: 71 years old Clinical indication: Injury or trauma; Blunt trauma (contusions or hematomas); Without loss of consciousness; Injury date: 09/28/22; Injury details: Fall, pain; Prior surgery; Surgery date: 6+ months; Surgery type: HX tbi with; Additional info: HX of lung CA TECHNIQUE: Imaging protocol: Computed tomography of the cervical spine without contrast. Radiation optimization: All CT scans at this facility use at least one of these dose optimization techniques: automated exposure control; mA and/or kV adjustment per patient size (includes targeted exams where dose is matched to clinical indication); or iterative reconstruction. COMPARISON: MR CERVICAL SPINE WO/W 01/20/2021 1:26 PM FINDINGS: Bones/joints: There is bony impingement on the right neural foramen at C3-C4, on the right neural foramen at C4-C5 on the left neural foramen at C5-C6. There is mild narrowing of the intervertebral disc spaces at C4-C5-C6. There are no acute wedge compression fracture deformities. There are no focal bone lesions. There is normal vertebral body alignment. Lungs: Lung apices are normal. Vasculature: Arteriosclerotic changes are identified. Soft tissues: Unremarkable. IMPRESSION: 1. No fracture. 2. Degenerative changes, as described above. Dictated and Authenticated by: Rafael Donald MD. Ordering:BRITTANY Marie MD
--- NOTE | 2022-09-28 06:22 | DI.VRAD_ITS ---
Addendum created by Dorothy Rand MD on 09/28/2022 6:24:12 AM EST: Findings were discussed with Frank Cortez at 09/28/2022 6:24 AM EST. Initial report created on 09/28/2022 6:21:50 AM EST: PROCEDURE INFORMATION: Exam: CT Thoracic Spine Without Contrast Exam date and time: 09/28/2022 4:47 AM Age: 71 years old Clinical indication: Injury or trauma; Blunt trauma (contusions or hematomas); Injury date: 09/28/22; Injury details: Fall pain; Patient HX: Fall/pain; Additional info: HX of lung CA TECHNIQUE: Imaging protocol: Computed tomography of the thoracic spine without contrast. Radiation optimization: All CT scans at this facility use at least one of these dose optimization techniques: automated exposure control; mA and/or kV adjustment per patient size (includes targeted exams where dose is matched to clinical indication); or iterative reconstruction. COMPARISON: 1. CT CHEST/ABD/PEL W 02/21/2020 1:56 PM 2. MR THORACIC SPINE WO/W 01/20/2021 1:26 PM FINDINGS: Bones/joints: Normal alignment. No acute fracture. Multiple scattered sclerotic foci, including in the right posterior 3rd rib, T4 vertebral body, and T7 left transverse process, which do not definitively meet CT criteria for bone islands (Maximum HU > 1125 HU, Mean HU > 875 HU), but which remains stable however compared to the comparison study of 01/20/2021. However, compared to more remote CT of 02/21/2020, the lesion in the T4 vertebral body is mildly increased, now measuring 8 mm (previously 6 mm). Soft tissues: Unremarkable. Vasculature: 4.5 cm maximum diameter of dilated ascending thoracic aorta. Lungs: Postsurgical changes are again seen in the right hemithorax. The patient again appears to be status post right upper lobectomy. Multiple nodular densities in the right lower lung demonstrate interval increase in size and number, the largest of which measure 2.8 cm (this is seen in the area where there are a cluster of several small nodular densities measuring up to 8 mm in size. (image 73/series 2), and 2.7 cm (previously 1.9 cm) (image 81/series 2). There are also dense consolidative nodular opacities in the right middle lobe, which have increased compared to the prior study. Thyroid: Asymmetric prominence of the right thyroid lobe. IMPRESSION: 1. Findings suspicious for residual/metastatic disease the right middle and right lower lobes, with interval worsening. A superimposed infectious process would be difficult to exclude. Recommend clinical assessment and follow-up. Fleischner Society follow-up recommendations for incidental nodules are not indicated in the setting of a history of neoplasia. Follow up per the patient's medical condition. 2. No evidence of acute fracture or subluxation of the thoracic spine. 3. Indeterminate sclerotic bone lesions as described above. Correlate with PSA. Correlate with PSA. If indicated, consider bone scan for further evaluation. If indicated, bone scan can be obtained for further evaluation. 4. Dilated ascending thoracic aorta. Recommend clinical assessment and follow-up. 5. Asymmetric prominence of the right thyroid lobe. Correlate with thyroid function tests. PROCEDURE INFORMATION: Exam: CT Lumbar Spine Without Contrast Exam date and time: 09/28/2022 4:47 AM Age: 71 years old Clinical indication: Injury or trauma; Blunt trauma (contusions or hematomas); Injury date: 09/28/22; Injury details: Fall pain; Patient HX: Fall/pain; Additional info: HX of lung CA TECHNIQUE: Imaging protocol: Computed tomography of the lumbar spine without contrast. Radiation optimization: All CT scans at this facility use at least one of these dose optimization techniques: automated exposure control; mA and/or kV adjustment per patient size (includes targeted exams where dose is matched to clinical indication); or iterative reconstruction. COMPARISON: 1. CT CHEST/ABD/PEL W 02/21/2020 1:56 PM 2. MR LUMBAR SPINE WO/W 01/20/2021 1:26 PM FINDINGS: Bones/joints: Normal alignment. No acute fracture. Moderate disc space height loss at L4 through S1. No acute fracture. Sclerotic foci in the left L5 transverse process/pedicle and posterior right iliac bone, which do not strictly meet CT criteria for bone islands (Maximum HU > 1125 HU, Mean HU > 875 HU), which are stable compared to CT of 02/21/2020, favoring a benign process. Kidneys and ureters: Likely benign left renal cysts, requiring no further evaluation, measuring as large as 2.5 cm (18 HU) in the posterior left midpole. Vasculature: 2.7 cm maximum diameter mildly ectatic distal abdominal aorta. Soft tissues: Unremarkable. IMPRESSION: 1. No evidence of acute fracture or subluxation of the lumbar spine. 2. Indeterminate sclerotic bone lesions as described above. Interval stability since CT of 02/21/2020 favors a benign process. Correlate with PSA. If indicated, bone scan can be obtained for further evaluation. 3. Ectatic distal abdominal aorta. Follow-up imaging in 5 years is recommended. Dictated and Authenticated by: Dorothy Rand MD. Ordering:BRITTANY Marie MD
== END 2022-09-28 07:28 | disposition home or self-care (01) ==
PROVIDERS: Emergency Provider Emergency Medicine; PCP Nurse Practitioner Family
DX: S20.224A Contusion of middle back wall of thorax, initial encounter (principal); E10.22 Type 1 diabetes mellitus with diabetic chronic kidney disease; I12.9 Hypertensive chronic kidney disease with stage 1 through stage 4 chronic kidney disease, or unspecified chronic kidney disease; N18.9 Chronic kidney disease, unspecified; I48.91 Unspecified atrial fibrillation; J44.9 Chronic obstructive pulmonary disease, unspecified; Z79.4 Long term (current) use of insulin; W22.8XXA Striking against or struck by other objects, initial encounter; W19.XXXA Unspecified fall, initial encounter; Y93.89 Activity, other specified; Z85.118 Personal history of other malignant neoplasm of bronchus and lung
CPT/HCPCS: 96372; 99284; 70450; 72125; 72128; 72131; J1170

== ENCOUNTER 2022-10-01 08:15 | Outpatient (REF) | payer MEDICARE, SELFPAY ==
[2022-10-02 10:01] LABS: Bilirubin Negative (Negative); Blood Trace-intact (Negative); Clarity Clear (Clear); Glucose Negative (Negative); Ketones Negative (Negative); Leukocyte Esterase Trace (Negative); Nitrite Negative (Negative); Specific Gravity 1.025 (1.005-1.025); Urobilinogen 0.2 EU/dL (Up TO 0.2); pH 5.5 (5-8)
[2022-10-02 10:51] LABS: Bacteria Rare HPF (Negative); C & S Indicated? C&S Done As Ordered; Casts Negative LPF (Negative); Crystals Negative HPF (Negative); Epithelial Cells Rare HPF (Negative); Mucus Negative (Negative); RBC 0-2 HPF (0-2)
== END 2022-10-02 13:33 | disposition home or self-care (01) ==
LOC: LBN 08:15
PROVIDERS: PCP Nurse Practitioner Family; Visit Provider Nurse Practitioner Gerontology
DX: R30.0 Dysuria (principal)
CPT/HCPCS: 81003; 81015; 87086